=== PATIENT | male | born 1965 | race Caucasian/White ===

== ENCOUNTER 2023-01-22 15:32 | Outpatient (CLI) | payer MEDICARE, SELFPAY | END 2023-01-22 15:33 | disposition home or self-care (01) | PROVIDERS: PCP Family Medicine; Visit Provider Internal Medicine | DX: Z95.810 Presence of automatic (implantable) cardiac defibrillator (principal); I45.81 Long QT syndrome; I25.10 Atherosclerotic heart disease of native coronary artery without angina pectoris; I10 Essential (primary) hypertension; E78.5 Hyperlipidemia, unspecified; R55 Syncope and collapse; F17.210 Nicotine dependence, cigarettes, uncomplicated; E11.9 Type 2 diabetes mellitus without complications; Z79.4 Long term (current) use of insulin | CPT/HCPCS: 80048; 83735 ==

== ENCOUNTER 2024-05-23 12:54 | Outpatient (CLI) | payer MEDICARE, SELFPAY | END 2024-05-23 12:55 | disposition home or self-care (01) | LOC: INJ CL 12:55 | PROVIDERS: PCP Family Medicine; Visit Provider Family Medicine | DX: M54.16 Radiculopathy, lumbar region (principal); M51.36 Other intervertebral disc degeneration, lumbar region | CPT/HCPCS: 62323; J0702; Q9966 ==

== ENCOUNTER 2025-03-26 12:41 | Emergency (ER) | payer MEDICARE, MEDICAID, SELFPAY ==
--- OUTSIDE RECORDS SUMMARY | 2025-03-26 12:44 | XMS_ITS | Continuity of Care Document ---
Author Organization [facility] Address [address] [place] [address] Phone Care Team Providers Care Bible Worker Name Role Phone Will Gil ORTEGA Unavailable Unavailabl e Allergies, Adverse Reactions, Alerts Substance Reaction Status Criticality tamsulosin Urinary incontinence Active No Info rmation CEPHALEXIN MONOHYDRATE Constipation Active No In formation PENICILLIN Active No Information lactose Active No Information Medications Medication Instructions Dosage Effective Dates (start - stop) Status Comments magnesium 250 mg tablet Take 1 Tablet (2 50 mg) by mouth once daily. - Active nadolol 40 mg tablet Take 1 Tablet (40 mg) by mouth once daily. If after two weeks of taking Nadolol 40 mg once a day and you are tolerating it you may increase to Nadolol 80mg once a day - Active hydroxyzine HCl 25 mg tablet 25-50 mg up to twice a day as needed for anxiety - Active tramadol 50 mg tablet Take 1 Tablet (50 mg) by mouth every 6 hours if needed for Pain. - Active nitroglycerin 0.[address] 1 TABLET UNDER THE TONGUE EVERY 5 MINUTES IF NEEDED FOR CHEST PAIN. - Active betamethasone acetate and sodium phos 6 mg/mL suspension for injection - Active chlorhexidine gluconate 0.12 % mouthwash RINSE MOUTH WITH 1 CAPFUL FOR 30 SECONDS TWICE A DAY - Active oxycodone 5 mg tablet take 1 Tablet by ORAL route every 4 - 6 hours prn for post-operative pain - Active nystatin 100,000 unit/gram topical powder Apply 1 Strip topically to affected area(s) 3 times daily. - Active albuterol sulfate HFA 90 mcg/actuation aerosol inhaler inhale 2 puff by inhalation route every 4 - 6 hours as needed 180 MCG - Active Abilify 15 mg tablet take 1 tablet by oral route every day 15 MG - Active Lipitor 80 mg tablet take 1 tablet by oral route every day 80 MG - Active carvedilol 12.5 mg tablet take 1 tablet by oral route every day with food 12.5 MG - Active chlorthalidone 25 mg tablet take 1 tablet by oral route every day 25 MG - Active dicyclomine 20 mg tablet take 1 tablet by oral route 2 times every day 20 MG - Active famotidine 20 mg tablet take 1 tablet by oral route 2 times every day 20 MG - Active isosorbide mononitrate ER 30 mg tablet,extended release 24 hr take 1 tablet by oral route every day in the morning 30 MG - Active lisinopril 20 mg tablet take 1 tablet by oral route every day 20 MG - Active loperamide 2 mg tablet take 1 tablet by oral route after 1st loose stool and 1 tablet (2 mg) after each next bowel movement; do not exceed 16 mg in 24hrs 2 MG - Active Narcan 4 mg/actuation nasal spray spray 0.1 milliliter by intranasal route in 1 nostril may repeat dose every 2-3 minutes as needed alternating nostrils with each dose 4 MG - Active prazosin 5 mg capsule take 1 capsule by oral route 2 times every day 5 MG - Active prazosin 2 mg capsule take 1 capsule by oral route 2 times every day 2 MG - Active tamsulosin 0.4 mg capsule take 1 capsule by oral route every day 1/2 hour following the same meal each day 0.4 MG - Active PreserVision AREDS-2 250 mg-90 mg-40 mg-1 mg chewable tablet - Active metformin 500 mg tablet take 1 tablet by oral route every day with morning and evening meals 500 MG - Active Zoloft 100 mg tablet take 1 tablet by oral route 2 times every day 100 MG - Active lithium carbonate 150 mg capsule take 2 capsule by oral route 2 times every day 300 MG - Active Aspirin Low Dose 81 mg tablet,delayed release take 1 tablet by oral route every day 81 MG - Active clonazepam 1 mg tablet take 1 tablet by oral route every day 1 MG - Active gabapentin 300 mg capsule take 1 capsule by oral route 3 times every day 300 MG - Active hydrocodone 7.5 mg-acetaminophen 325 mg tablet take 1 tablet by oral route every 6 hours as needed for pain 1 tablet - Active Procedures Procedure Date RF Lumbar Or Sacral Single Level 2024 RF Lumbar Sacral 2nd Level RF Lumbar Sacral 2nd Level Facet Inj Lumbar Facet Inj Lumbar 2nd Lvl Facet Inj Lumbar Facet Inj Lumbar 2nd Lvl OFFICE/OUTPATIENT VISIT, EST OFFICE VISIT, EST TELEMEDICINE OFFICE/OUTPATIENT VISIT, EST Drug Urine Toxology With Chromatography Drug test def 22+ classes OFFICE VISIT, EST TELEMEDICINE OFFICE/OUTPATIENT VISIT, EST PHONE E/M PHYS/QHP 21-30 MIN OFFICE/OUTPATIENT VISIT, EST Drug Urine Toxology With Chromatography Drug test def 8-14 classes OFFICE VISIT, EST TELEMEDICINE SCS Post Op Satellite OFFICE VISIT, EST TELEMEDICINE Removal of spinal neurostimu lator electrode Percutaneous Arrays,Including Fluoro REVISE/REMOVE NEURORECEIVER OFFICE VISIT, EST TELEMEDICINE Drug Urine Toxology With Chromatography Drug test def 15-21 classes OFFICE/OUTPATIENT VISIT, EST OFFICE VISIT, EST TELEMEDICINE OFFICE VISIT, EST TELEMEDICINE Foll-up eval q3mo opiod tx OFFICE/OUTPATIENT VISIT, EST Drug Urine Toxology With Chromatography Drug test def 8-14 classes Foll-up eval q3mo opiod tx OFFICE VISIT, EST TELEMEDICINE Foll-up eval q3mo opiod tx OFFICE VISIT, EST TELEMEDICINE Foll-up eval q3mo opiod tx OFFICE/OUTPATIENT VISIT, EST Drug Urine Toxology With Chromatography Drug test def 8-14 classes Foll-up eval q3mo opiod tx OFFICE VISIT, EST TELEMEDICINE Foll-up eval q3mo opiod tx OFFICE VISIT, EST TELEMEDICINE ANALYZE NEUROSTIM, COMPLEX Foll-up eval q3mo opiod tx OFFICE/OUTPATIENT VISIT, EST OFFICE/OUTPATIENT VISIT, EST Telehealth Drug Urine Toxology With Chromatography Drug test def 8-14 classes Foll-up eval q3mo opiod tx OFFICE/OUTPATIENT VISIT, EST Foll-up eval q3mo opiod tx OFFICE/OUTPATIENT VISIT, EST Foll-up eval q3mo opiod tx OFFICE/OUTPATIENT VISIT, EST Foll-up eval q3mo opiod tx OFFICE/OUTPATIENT VISIT, EST ANALYZE NEUROSTIM, COMPLEX Foll-up eval q3mo opiod tx OFFICE/OUTPATIENT VISIT, EST Drug Urine Toxology With Chromatography Drug test def 15-21 classes SCS Post Op Satellite No Charge For Visit Per Prov Foll-up eval q3mo opiod tx IMPLANT NEUROELECTRODES ASC IMPLANT NEUROELECTRODES ASC INSRT/REDO SPINE N GENERATOR No Charge For Visit Per Prov No Charge For Visit Per Prov OFFICE VISIT, EST TELEMEDICINE OFFICE VISIT, EST TELEMEDICINE SCS Lead Pull Satellite No Charge For Visit Per Prov IMPLANT NEUROELECTRODES ASC IMPLANT NEUROELECTRODES ASC ANALYZE NEUROSTIM, COMPLEX PT EVAL MOD COMPLEX 30 MIN Psych Dx Eval ROUTINE BLOOD DRAW INJ TRIGGER POINT, 1/2 MUSCL Substance Interv 15-30mn OFFICE/OUTPATIENT VISIT, [facility] Advance Directives Directive Yes / No Effective Date File Name No Information Encounters Encounter Description Practice Location Reason(s) For Visit Diagnoses Date Provider Providers Copied on Encounter [facility], [address] [place] [address], [id number] , [place] tel:[phone] [facility] Spondylosis without myelopathy or radiculopathy, lumbar region 5 Bruce Cordero. [address] [place] [address], [id number], [place]. tel:[phone] Referring Provider: Gil Rinaldi, [address] [place] [address], [id number]. [phone] [facility], [address] [place] [address], [id number] , [place] tel:[phone] [facility] Spondylosis without myelopathy or radiculopathy, lumbar region 5 Arnulfo Sosa. [address], [address], [employer], [place], [id number], [place]. tel:[phone] Referring Provider: Gil Rinaldi, [address] [place] [address], [id number]. [phone] [facility], [address] [place] [address], [id number] , [place] tel:[phone] [facility] Spondylosis without myelopathy or radiculopathy, lumbar region 5 Arnulfo Sosa. [address], [address], [employer], [place], [id number], [place]. tel:[phone] [facility], [address] [place], [place], [id number] , [place] [phone] [facility] Spondylosis without myelopathy or radiculopathy, lumbar region Feb-0 5 Bruce Cordero. [address] [place], [place], [id number], [place]. tel:[phone] Referring Provider: Ian Arredondo, [address], [place], [address]. tel:[phone] OFFICE/OUTPAT IENT VISIT, [facility], [address] [place] [address], [id number] , [place] [phone] [facility] low back pain (chief complaint) Body mass index [BMI] 33.0-33.9, adultChronic pain syndromeBilatera l primary osteoarthritis of hipRadiculopathy , lumbar regionSpondylosi s without myelopathy or radiculopathy, lumbar regionMyalgia, other site 4 Arnulfo Sosa. [address], [address], [employer], [place], [id number], [place]. tel:[phone] Referring Provider: Gil Rinaldi, [address] [place], [address]. tel:[phone] OFFICE VISIT, [facility], [address] [place] [address], [id number] , [place] [phone] [facility] low back pain (chief complaint) Chronic pain syndromeBilatera l primary osteoarthritis of hipSpondylosis without myelopathy or radiculopathy, lumbar regionSpinal stenosis, lumbar region with neurogenic claudicationRadi culopathy, lumbar regionMyalgia, other siteLong term (current) use of opiate analgesicOther fci (current) drug therapy Feb- 4 Summer Galicia [place], [address] [place] [address], [id number], [place]. tel:[phone] Referring Provider: Gil Rinaldi, [address] [place] [address], [id number]. tel:[phone] OFFICE/OUTPAT IENT VISIT, [facility], [address] [place] [address], [id number] , tel:[phone] [facility] low back pain (chief complaint) Chronic pain syndromeBilatera l primary osteoarthritis of hipSpondylosis without myelopathy or radiculopathy, lumbar regionSpinal stenosis, lumbar region with neurogenic claudicationRadi culopathy, lumbar regionMyalgia, other siteLong term (current) use of opiate analgesicOther fci (current) drug therapyEncounter for therapeutic drug level monitoring 4 Summer [place], [address] [place], [place], [facility], . tel:[phone] Referring Provider: Gil Rinaldi, [address] [place] [address], [id number]. tel:[phone] OFFICE VISIT, [facility], [address] [place] [address], [id number] , [place] tel:[phone] [facility] low back pain (chief complaint) Chronic pain syndromeBilatera l primary osteoarthritis of hipSpondylosis without myelopathy or radiculopathy, lumbar regionSpinal stenosis, lumbar region with neurogenic claudicationRadi culopathy, lumbar regionMyalgia, other siteLong term (current) use of opiate analgesicOther parts counterman (current) drug therapy 4 Summer [place], [address] [place], [place], [facility], [place]. tel:[phone] OFFICE/OUTPAT IENT VISIT, [facility], [address] [place] [address], [id number] , [place] tel:[phone] [facility] low back pain (chief complaint) Chronic pain syndromeBilatera l primary osteoarthritis of hipSpondylosis without myelopathy or radiculopathy, lumbar regionSpinal stenosis, lumbar region with neurogenic claudicationRadi culopathy, lumbar regionMyalgia, other siteLong term (current) use of opiate analgesicOther parts counterman (current) drug therapy 4 Summer [place], [address] [place], [address], [place]. tel:[phone] PHONE E/M PHYS/QHP 21-30 MIN [facility], [address] [place] [address], [id number] , [place] [phone] [facility] low back pain (chief complaint) Chronic pain syndromeBilatera l primary osteoarthritis of hipSpondylosis without myelopathy or radiculopathy, lumbar regionSpinal stenosis, lumbar region with neurogenic claudicationRadi culopathy, lumbar regionMyalgia, other siteLong term (current) use of opiate analgesicOther parts counterman (current) drug therapy 4 Summer [place], [address] [place], [address], [place]. tel:[phone] Referring Provider: Gil Rinaldi, [address] [place] [address], [id number]. tel:[phone] OFFICE/OUTPAT IENT VISIT, EST [facility], [address] [place] [address], [id number] , [place] tel:[phone] [facility] low back pain (chief complaint) Chronic pain syndromeBilatera l primary osteoarthritis of hipSpondylosis without myelopathy or radiculopathy, lumbar regionSpinal stenosis, lumbar region with neurogenic claudicationRadi culopathy, lumbar regionMyalgia, other siteLong term (current) use of opiate analgesicEncount er for therapeutic drug level monitoringOther fci (current) drug therapy 3 Summer [place], [address] [place], [address], [place]. tel:[phone] Referring Provider: Gil Rinaldi, [address] [place] [address], [id number]. tel:[phone] [facility], [address] [place] [address], [id number] , [place] tel:[phone] [facility] [place] No Information 0 3 Wheeler Gael. [place], [address] [place], [address], [place]. tel:[phone] OFFICE VISIT, EST TELEMEDICINE [facility], [address] [place] [address], [id number] , [place] tel:[phone] [facility] low back pain (chief complaint) Chronic pain syndromeBilatera l primary osteoarthritis of hipSpondylosis without myelopathy or radiculopathy, lumbar regionSpinal stenosis, lumbar region with neurogenic claudicationRadi culopathy, lumbar regionMyalgia, other siteLong term (current) use of opiate analgesic 3 Wheeler Gael. [place], [address] [place], [address], [place]. tel:[phone] OFFICE VISIT, EST TELEMEDICINE [facility], [address] [place] [address], [id number] , [place] tel:[phone] [facility] low back pain (chief complaint) Chronic pain syndromeBilatera l primary osteoarthritis of hipSpondylosis without myelopathy or radiculopathy, lumbar regionSpinal stenosis, lumbar region with neurogenic claudicationRadi culopathy, lumbar regionMyalgia, other siteLong term (current) use of opiate analgesic Aug-0 3 Wheeler Gael. [place], [address] [place], [address], [place]. tel:[phone] [facility], [address] [place] [address], [id number] , [place] tel:[phone] [facility] Radiculopathy, lumbar region Sep-2 3 Adebayo Cancino. [address] [place] [address], [id number], [place]. tel:[phone] Referring Provider: Julita Fiore, [address] [place] [address], [id number]. tel:[phone] OFFICE VISIT, EST TELEMEDICINE [facility], [address] [place] [address], [id number] , [place] [phone] [facility] low back pain (chief complaint) Chronic pain syndromeBilatera l primary osteoarthritis of hipSpondylosis without myelopathy or radiculopathy, lumbar regionSpinal stenosis, lumbar region with neurogenic claudicationRadi culopathy, lumbar regionMyalgia, other siteLong term (current) use of opiate analgesic Sep-0 3 Summer [place]ela, [address] [place], [address], [place]. tel:[phone] Referring Provider: Gil Rinaldi, [address] [place], [address]. tel:[phone] [facility], [address] [place] [address], [id number] , [place] [phone] [facility] No Information 3 Summer Vela, [address] [place], [address], [place]. tel:[phone] Referring [facility]: [facility] [address] [place], [address]. tel:[phone] OFFICE/OUTPAT IENT VISIT, EST [facility], [address] [place] [address], [id number] , [place] [phone] [facility] low back pain (chief complaint) Chronic pain syndromeBilatera l primary osteoarthritis of hipSpondylosis without myelopathy or radiculopathy, lumbar regionSpinal stenosis, lumbar region with neurogenic claudicationRadi culopathy, lumbar regionMyalgia, other siteLong term (current) use of opiate analgesicEncount er for therapeutic drug level monitoring 3 Summer Vela, [address] [place], [address], [place]. tel:[phone] Referring Provider: Manjinder Rodas [facility] [address] [place], [address]. tel:[phone] OFFICE VISIT, EST TELEMEDICINE [facility], [address] [place] [address], [id number] , [place] [phone] [facility] low back pain (chief complaint) Chronic pain syndromeBilatera l primary osteoarthritis of hipSpondylosis without myelopathy or radiculopathy, lumbar regionSpinal stenosis, lumbar region with neurogenic claudicationRadi culopathy, lumbar regionMyalgia, other siteLong term (current) use of opiate analgesic May- 3 Summer Vela, [address] [place], [address], [place]. tel:[phone] Referring Provider: iGl Rinaldi, [address] [place] [address], [id number]. tel:[phone] OFFICE VISIT, [facility], [address] [place] [address], [id number] , [place] [phone] [facility] low back pain (chief complaint) Chronic pain syndromeBilatera l primary osteoarthritis of hipSpondylosis without myelopathy or radiculopathy, lumbar regionSpinal stenosis, lumbar region with neurogenic claudicationRadi culopathy, lumbar regionMyalgia, other siteLong term (current) use of opiate analgesic 3 Summer Vela, [address] [place], [address], [place]. [phone] OFFICE/OUTPAT IENT VISIT, [facility], [address] [place] [address], [id number] , [place] tel:[phone] [facility] low back pain (chief complaint) Chronic pain syndromeBilatera l primary osteoarthritis of hipSpondylosis without myelopathy or radiculopathy, lumbar regionSpinal stenosis, lumbar region with neurogenic claudicationRadi culopathy, lumbar regionMyalgia, other siteLong term (current) use of opiate analgesicOther parts counterman (current) drug therapy 0 3 Summer Vela, [address] [place], [address], [place]. tel:[phone] Referring Provider: Manjinder Rodas, [facility] [address], [place], [address]. tel:[phone] [facility], [address] [place] [address], [id number] , [place] [phone] [facility] No Information May-0 - 3 Wheeler Gael. [place], [address] [place], [address], [place]. tel:[phone] OFFICE VISIT, EST TELEMEDICINE [facility], [address] [place] [address], [id number] , [place] tel:[phone] [facility] low back pain (chief complaint) Chronic pain syndromeSpondylo sis without myelopathy or radiculopathy, lumbar regionSpinal stenosis, lumbar region with neurogenic claudicationRadi culopathy, lumbar regionMyalgia, other siteLong term (current) use of opiate analgesicOther fci (current) drug therapyBilateral primary osteoarthritis of hip Apr-0 - 3 Wheeler Gael. [place], [address] [place], [address], [place]. tel:[phone] Referring Provider: Gil Rinaldi, [address] [place] [address], [id number]. tel:[phone] OFFICE VISIT, EST TELEMEDICINE [facility], [address] [place] [address], [id number] , [place] tel:[phone] [facility] low back pain (chief complaint) Chronic pain syndromeUnilater al primary osteoarthritis, right hipSpondylosis without myelopathy or radiculopathy, lumbar regionSpinal stenosis, lumbar region with neurogenic claudicationRadi culopathy, lumbar regionMyalgia, other siteLong term (current) use of opiate analgesicOther fci (current) drug therapy Mar-0 - 3 Wheeler Gael. [place], [address] [place], [address], [place]. tel:[phone] Referring Provider: Gil Rinaldi, [address] [place] [address], [id number]. tel:[phone] [facility], [address] [place] [address], [id number] , [place] tel: [phone] [facility] Radiculopathy, lumbar region Jan- 3 Summer Galicia [place], [address] [place], [address], [place]. tel:[phone] OFFICE/OUTPAT IENT VISIT, EST [facility], [address] [place] [address], [id number] , [place] tel: [phone] [facility] low back pain (chief complaint) Chronic pain syndromeUnilater al primary osteoarthritis, right hipSpondylosis without myelopathy or radiculopathy, lumbar regionSpinal stenosis, lumbar region with neurogenic claudicationRadi culopathy, lumbar regionMyalgia, other siteLong term (current) use of opiate analgesicOther parts counterman (current) drug therapyEncounter for therapeutic drug level monitoring 3 Bryn Jasmine. [address], [id number], [place]. tel:[phone] Referring Provider: Manjinder Rodas [facility] [address] [place], [address]. tel:[phone] [facility], [address] [place] [address], [id number] , [place] tel: [phone] [facility] No Information 3 Bryn Jasmine. [address], [id number], [place]. tel:[phone] Referring Provider: [facility]inder [facility] [address] [place], [address]. tel:[phone] [facility], [address] [place] [address], [id number] , [place] tel:[phone] [facility] No Information 3 Summer [place], [address] [place], [address], [place]. tel:[phone] OFFICE VISIT, EST TELEMEDICINE [facility], [address] [place] [address], [id number] , [place] tel:[phone] [facility] Back Pain (chief complaint) Chronic pain syndromeUnilater al primary osteoarthritis, right hipSpondylosis without myelopathy or radiculopathy, lumbar regionSpinal stenosis, lumbar region with neurogenic claudicationRadi culopathy, lumbar regionMyalgia, other siteLong term (current) use of opiate analgesicOther fci (current) drug therapy 0- 3 Wheeler Gael. [place], [address] [place], [address], [place]. tel:[phone] Referring Provider: Gil Rinaldi, [address] [place] [address], [id number]. [phone] OFFICE VISIT, EST TELEMEDICINE [facility], [address] [place] [address], [id number] , [place] tel:[phone] [facility] Back pain (chief complaint) Chronic pain syndromeSpondylo sis without myelopathy or radiculopathy, lumbar regionSpinal stenosis, lumbar region with neurogenic claudicationRadi culopathy, lumbar regionMyalgia, other siteLong term (current) use of opiate analgesicOther parts counterman (current) drug therapyUnilatera l primary osteoarthritis, right hip Oct-2 2- 2 Wheeler Gael. [place], [address] [place], [address], [place]. tel:[phone] [facility], [address] [place] [address], [id number] , [place] tel:[phone] [facility] Unilateral primary osteoarthritis, right hip Oct-0 7- 2 Wheeler Gael. [place], [address] [place], [address], [place]. tel:[phone] OFFICE/OUTPAT IENT VISIT, EST [facility], [address] [place] [address], [id number] , [place] tel:[phone] [facility] Back Pain (chief complaint) Chronic pain syndromeUnilater al primary osteoarthritis, right hipSpondylosis without myelopathy or radiculopathy, lumbar regionSpinal stenosis, lumbar region with neurogenic claudicationRadi culopathy, lumbar regionMyalgia, other siteLong term (current) use of opiate analgesicOther fci (current) drug therapy 2 Summer Galicia [place], [address] [place], [address], [place]. tel:[phone] Referring Provider: Manjinder Rodas, [facility] [address] [place], [address]. tel:[phone] OFFICE/OUTPAT IENT VISIT, [facility], [address] [place] [address], [id number] , [place] [phone] [facility] Radiculopathy, lumbar region 2 Bruce Cordero. [address] [place] [address], [id number], [place]. tel:[phone] Referring Provider: Gil Rinaldi, [address] [place] [address], [address]. tel:[phone] [facility], [address] [place] [address], [id number] , [place] [phone] [facility] No Information 2 Summer Galicia [place], [address] [place], [address], [place]. tel:[phone] OFFICE/OUTPAT IENT VISIT, [facility], [address] [place] [address], [id number] , [place] [phone] [facility] Back Pain (chief complaint) Chronic pain syndromeUnilater al primary osteoarthritis, right hipSpondylosis without myelopathy or radiculopathy, lumbar regionSpinal stenosis, lumbar region with neurogenic claudicationRadi culopathy, lumbar regionMyalgia, other siteLong term (current) use of opiate analgesicOther fci (current) drug therapyEncounter for therapeutic drug level monitoring 2 Summer [place], [address] [place], [address], [place]. tel:[phone] Referring Provider: Manjinder Rodas [facility] [address] [place], [address]. tel:[phone] OFFICE/OUTPAT IENT VISIT, [facility], [address] [place] [address], [id number] , [place] [phone] [facility] Back pain (chief complaint) Unilateral primary osteoarthritis, right hipChronic pain syndromeSpondylo sis without myelopathy or radiculopathy, lumbar regionSpinal stenosis, lumbar region with neurogenic claudicationRadi culopathy, lumbar regionMyalgia, other siteLong term (current) use of opiate analgesicOther fci (current) drug therapy Oct 2 Summer [place], [address] [place], [address], [place]. tel:[phone] Referring Provider: Manjinder Rodas [facility] [address] [place], [address]. tel:[phone] OFFICE/OUTPAT IENT VISIT, [facility], [address] [place] [address], [id number] , [place] tel:[phone] [facility] Back Pain (chief complaint) Chronic pain syndromeUnilater al primary osteoarthritis, right hipSpondylosis without myelopathy or radiculopathy, lumbar regionSpinal stenosis, lumbar region with neurogenic claudicationRadi culopathy, lumbar regionMyalgia, other siteLong term (current) use of opiate analgesicOther fci (current) drug therapy Sep-0 2 Summer [place], [address] [place], [address], [place]. tel:[phone] Referring Provider: Manjinder Rodas [facility] [address] [place], [address]. tel:[phone] OFFICE/OUTPAT IENT VISIT, EST [facility], [address] [place], [place], [id number] , [place] tel:[phone] [facility] Back Pain (chief complaint) Radiculopathy, lumbar regionChronic pain syndromeUnilater al primary osteoarthritis, right hipSpondylosis without myelopathy or radiculopathy, lumbar regionSpinal stenosis, lumbar region with neurogenic claudicationMyal fryea, other siteLong term (current) use of opiate analgesicOther fci (current) drug therapy 2 Wheeler Gael. [place], [address] [place], [address], [place]. tel:[phone] Referring Provider: Manjinder Rodas [facility] [address] [place], [address]. tel:[phone] [facility], [address], [place], [id number] , [place] tel:[phone] [facility] Radiculopathy, lumbar region 2 Wheeler Gael. [place], [address] [place], [address], [place]. tel:[phone] Referring Provider: Manjinder Rodas [facility] [address] [place], [address]. tel:[phone] OFFICE/OUTPAT IENT VISIT, [facility], [address], [place], [id number] , [place] [phone] [facility] Back Pain (chief complaint) Chronic pain syndromeUnilater al primary osteoarthritis, right hipSpondylosis without myelopathy or radiculopathy, lumbar regionSpinal stenosis, lumbar region with neurogenic claudicationRadi culopathy, lumbar regionMyalgia, other siteOther fci (current) drug therapyLong term (current) use of opiate analgesic 2 Wheeler Gael. [place], [address] [place], [address], [place]. tel:[phone] Referring Provider: Manjinder Rodas [facility] [address] [place], [address]. tel:[phone] [facility], [address] [place] [address], [id number] , [place] tel:[phone] [facility] No Information 2 Wheeler Gael. [place], [address] [place], [address], [place]. tel:[phone] Referring Provider: Manjinder Rodas [facility] [address] [place], [address]. tel:[phone] [facility], [address] [place] [address], [id number] , [place] tel:[phone] [facility] Back Pain (chief complaint) Radiculopathy, lumbar region 2 Wheeler Gael. [place], [address] [place], [address], [place]. tel:[phone] Referring Provider: Manjinder Rodas [facility] [address] [place], [address]. tel:[phone] [facility], [address] [place] [address], [id number] , [place] tel:[phone] [facility] Radiculopathy, lumbar region 2 Varela Nicholas. [employer], [address], [place], [address], [place]. tel:[phone] Referring Provider: Manjinder Rodas [facility] [address] [place], [address]. tel:[phone] [facility], [address] [place] [address], [id number] , [place] tel:[phone] [facility] No Information 2 Varela Nicholas. [employer], [address], [place], [address], [place]. tel:[phone] Referring Provider: Manjinder Rodas [facility] [address] [facility], [place], [address]. tel:[phone] [facility], [address] [place] [address], [id number] , [place] [phone] [facility] No Information 2 Avery Peterson. [facility], [address], [place], [address], [place]. tel:[phone] Referring Provider: Manjinder Rodas, [facility] [address] [facility], [place], [address]. tel:[phone] OFFICE VISIT, EST TELEMEDICINE [facility], [address] [place] [address], [id number] , [place] [phone] [facility] Spinal stenosis, lumbar region with neurogenic claudication 2 Summer [place], [address] [place], [address], [place]. tel:[phone] OFFICE VISIT, EST TELEMEDICINE [facility], [address] [place] [address], [id number] , [place] tel:[phone] [facility] low back pain (chief complaint) Chronic pain syndromeUnilater al primary osteoarthritis, right hipSpondylosis without myelopathy or radiculopathy, lumbar regionSpinal stenosis, lumbar region with neurogenic claudicationRadi culopathy, lumbar regionMyalgia, other siteOther parts counterman (current) drug therapy Feb-0 2 Wheeler [place], [address], [place], [address], [place]. tel:[phone] [facility], [address] [place] [address], [id number] , [place] [phone] [facility] Radiculopathy, lumbar region Feb-2 2 Wheeler [place], [address] [place], [address], [place]. tel:[phone] Referring Provider: Majninder Rodas, [facility] [address], [place], [address]. tel:[phone] [facility], [address] [place] [address], [id number] , [place] [phone] [facility] Radiculopathy, lumbar region 2 Avery Peterson. [facility], [address], [place], [address], [place]. tel:[phone] Referring Provider: Manjinder Rodas, [facility] [address], [place], [address]. tel:[phone] [facility], [address] [place] [address], [id number] , [place] tel:[phone] [facility] lumbago (chief complaint) Spinal stenosis, lumbar region with neurogenic claudicationSpon dylosis without myelopathy or radiculopathy, lumbar regionRadiculopa thy, lumbar region 2 Darya Chapman. [address], [place], [id number], [place]. tel:[phone] [facility], [address] [place] [address], [id number] , [place] tel:[phone] [facility] No Information 2 Arely Alaniz. [address], [employer], [place], [id number], [place]. tel:[phone] Psych Dx Eval [facility], [address] [place] [address], [id number] , [place] tel:[phone] [facility] Stormy Pain disorder with related psychological factorsBipolar disorderPost-tra umatic stress disorder 2 Cata Darling. [address], [place], [id number], [place]. tel:[phone] [facility], [address] [place] [address], [id number] , [place] tel: [phone] [facility] Chronic pain syndromeRadiculo carl, lumbar regionSpinal stenosis, lumbar region with neurogenic claudication 1 Arely Alaniz. [address] [facility] [address], [id number], [place]. tel:[phone] [facility], [address] [place], [place], [id number] , [place] tel: [phone] [facility] No Information 1 Arely Alaniz. [address] [facility] [address], [id number], [place]. tel:[phone] OFFICE/OUTPAT IENT VISIT, [facility], [address] [place], [place], [id number] , [place] tel: [phone] [facility] low back pain (chief complaint) Spondylosis without myelopathy or radiculopathy, lumbar regionOther parts counterman (current) drug therapyEncounter for therapeutic drug level monitoringChroni c pain syndromeUnilater al primary osteoarthritis, right hipEncounter for screening for other disorderMyalgia, other siteRadiculopath y, lumbar regionSpinal stenosis, lumbar region with neurogenic claudication 1 Arely Alaniz. [address] [facility] 11 [facility] [address], [place], [id number], [place]. [phone] Referring Provider: Manjinder Rodas, [facility] [address] [facility], [place], [address]. tel:[phone] Family History Family Member Type Diagnosis Age At Onset No Information Payers Payer name Insurance type Covered republican ID Authoriza ticorina(s) [facility] MedicareComplete Replacement 16 [id number] [facility] [id number] Social History Type Description Quantity Date Captured Comments Sex Male Smoking Status No Information Chief Complaint And Reason For Visit No Information Reason For Referral Reason For Referral No Information Plan Of Treatment Date Type Action Status Goal Creatinine. Due on due Goal ALT (SGPT). Due on due Goal FIT. Due on due Goal Order Annual PT. Due on due Goal Weight. Due on d ue Goal Hepatitis C scre ening. Due on due Goal CALENDER RUNNER Paperwork. Due on due Goal Height. Due on d ue Goal PHQ-9. Due on du e Goal Lipid panel. Due on due Goal Update Social Hi story. Due on due Goal Tobacco Use. Due on due Goal FIT-DNA. Due on due Goal CT-Colonography. Due on due Goal Zoster vaccine ( 1st). Due on due Goal Review Allergy L ist. Due on due Goal MASTER TECHNICIAN Scanned. Due on due Goal Medication Recon ciliation. Due on due Goal UDT. Due on due Goal Unhealthy drug u se screening. Due on due Goal AST (SGOT). Due on due Goal OARS. Due on due Goal Medication Recon ciliation. Due on due Goal Hepatitis C scre ening. Due on due Goal CT-Colonography. Due on due Goal FIT. Due on due Goal Weight. Due on d ue Goal Zoster vaccine ( 1st). Due on due Goal Unhealthy drug u se screening. Due on due Goal FIT-DNA. Due on due Goal Height. Due on d ue Goal Review Allergy L ist. Due on due Goal Update Social Hi story. Due on due Goal AST (SGOT). Due on due Goal CALENDER RUNNER Paperwork. Due on due Goal PHQ-9. Due on du e Goal Tobacco Use. Due on due Goal Lipid panel. Due on due Goal MASTER TECHNICIAN Scanned. Due on due Goal Order Annual PT. Due on due Goal Creatinine. Due on due Goal UDT. Due on due Goal ALT (SGPT). Due on due Goal OARS. Due on due Goal Order Annual PT. Due on due Goal CT-Colonography. Due on due Goal CALENDER RUNNER Paperwork. Due on due Goal Tobacco Use. Due on due Goal AST (SGOT). Due on due Goal Lipid panel. Due on due Goal Hepatitis C scre ening. Due on due Goal FIT. Due on due Goal MASTER TECHNICIAN Scanned. Due on due Goal ALT (SGPT). Due on due Goal FIT-DNA. Due on due Goal Medication Recon ciliation. Due on due Goal Creatinine. Due on due Goal Unhealthy drug u se screening. Due on due Goal OARS. Due on due Goal Review Allergy L ist. Due on due Goal Zoster vaccine ( ). Due on due Goal PHQ-9. Due on du e Goal UDT. Due on due Goal Weight. Due on d ue Goal Height. Due on d ue Goal Update Social Hi story. Due on due Goal Lifestyle educat ion regarding diet completed Goal Weight. Due on d ue Goal Hepatitis C scre ening. Due on due Goal Tobacco Use. Due on due Goal Zoster vaccine ( ). Due on due Goal Unhealthy drug u se screening. Due on due Goal FIT-DNA. Due on due Goal Medication Recon ciliation. Due on due Goal Review Allergy L ist. Due on due Goal Creatinine. Due on due Goal FIT. Due on due Goal Update Social Hi story. Due on due Goal CALENDER RUNNER Paperwork. Due on due Goal OARS. Due on due Goal Lipid panel. Due on due Goal Order Annual PT. Due on due Goal ALT (SGPT). Due on due Goal UDT. Due on due Goal AST (SGOT). Due on due Goal MASTER TECHNICIAN Scanned. Due on due Goal Height. Due on d ue Goal CT-Colonography. Due on due Goal PHQ-9. Due on du e Goal Unhealthy drug u se screening. Due on due Goal ALT (SGPT). Due on due Goal AST (SGOT). Due on due Goal Zoster vaccine ( 1st). Due on due Goal OARS. Due on due Goal PHQ-9. Due on du e Goal Tobacco Use. Due on due Goal Lipid panel. Due on due Goal Hepatitis C scre ening. Due on due Goal UDT. Due on due Goal Order Annual PT. Due on due Goal Height. Due on d ue Goal CT-Colonography. Due on due Goal Creatinine. Due on due Goal MASTER TECHNICIAN Scanned. Due on due Goal Update Social Hi story. Due on due Goal Medication Recon ciliation. Due on due Goal Review Allergy L ist. Due on due Goal FIT. Due on due Goal Weight. Due on d ue Goal FIT-DNA. Due on due Goal CALENDER RUNNER Paperwork. Due on due Goal Lifestyle educat ion regarding diet completed Goal Zoster vaccine ( ). Due on due Goal Update Social Hi story. Due on due Goal Unhealthy drug u se screening. Due on due Goal UDT. Due on due Goal Weight. Due on d ue Goal OARS. Due on due Goal PHQ-9. Due on du e Goal MASTER TECHNICIAN Scanned. Due on due Goal AST (SGOT). Due on due Goal Height. Due on d ue Goal Hepatitis C scre ening. Due on due Goal Review Allergy L ist. Due on due Goal Tobacco Use. Due on due Goal FIT. Due on due Goal Lipid panel. Due on due Goal ALT (SGPT). Due on due Goal CT-Colonography. Due on due Goal CALENDER RUNNER Paperwork. Due on due Goal Order Annual PT. Due on due Goal FIT-DNA. Due on due Goal Creatinine. Due on due Goal Medication Recon ciliation. Due on due Goal Review Allergy L ist. Due on due Goal FIT. Due on due Goal AST (SGOT). Due on due Goal Height. Due on d ue Goal Medication Recon ciliation. Due on due Goal CT-Colonography. Due on due Goal Update Social Hi story. Due on due Goal Zoster vaccine ( 1st). Due on due Goal Creatinine. Due on due Goal Weight. Due on d ue Goal Order Annual PT. Due on due Goal MASTER TECHNICIAN Scanned. Due on due Goal Hepatitis C scre ening. Due on due Goal UDT. Due on due Goal PHQ-9. Due on du e Goal FIT-DNA. Due on due Goal Lipid panel. Due on due Goal CALENDER RUNNER Paperwork. Due on due Goal OARS. Due on due Goal Unhealthy drug u se screening. Due on due Goal Tobacco Use. Due on due Goal ALT (SGPT). Due on due Goal PHQ-9. Due on du e Goal Zoster vaccine ( 1st). Due on due Goal Tobacco Use. Due on due Goal Update Social Hi story. Due on due Goal Height. Due on d ue Goal Hepatitis C scre ening. Due on due Goal CT-Colonography. Due on due Goal Weight. Due on d ue Goal FIT-DNA. Due on due Goal Review Allergy L ist. Due on due Goal Creatinine. Due on due Goal Unhealthy drug u se screening. Due on due Goal OARS. Due on due Goal Medication Recon ciliation. Due on due Goal Lipid panel. Due on due Goal ALT (SGPT). Due on due Goal UDT. Due on due Goal FIT. Due on due Goal Order Annual PT. Due on due Goal AST (SGOT). Due on due Goal CALENDER RUNNER Paperwork. Due on due Goal MASTER TECHNICIAN Scanned. Due on due Goal Order Annual PT. Due on due Goal MASTER TECHNICIAN Scanned. Due on due Goal AST (SGOT). Due on due Goal ALT (SGPT). Due on due Goal Tobacco Use. Due on due Goal Height. Due on d ue Goal Update Social Hi story. Due on due Goal PHQ-9. Due on du e Goal Creatinine. Due on due Goal OARS. Due on due Goal Weight. Due on d ue Goal CALENDER RUNNER Paperwork. Due on due Goal Lipid panel. Due on due Goal Medication Recon ciliation. Due on due Goal UDT. Due on due Goal Review Allergy L ist. Due on due Goal FIT-DNA. Due on due Goal Unhealthy drug u se screening. Due on due Goal FIT. Due on due Goal CT-Colonography. Due on due Goal Zoster vaccine ( ). Due on due Goal Hepatitis C scre ening. Due on due Goal FIT-DNA. Due on due Goal ALT (SGPT). Due on due Goal Height. Due on d ue Goal Tobacco Use. Due on due Goal Zoster vaccine ( ). Due on due Goal PHQ-9. Due on du e Goal Order Annual PT. Due on due Goal UDT. Due on due Goal Creatinine. Due on due Goal Review Allergy L ist. Due on due Goal Lipid panel. Due on due Goal MASTER TECHNICIAN Scanned. Due on due Goal OARS. Due on due Goal Hepatitis C scre ening. Due on due Goal FIT. Due on due Goal Medication Recon ciliation. Due on due Goal Unhealthy drug u se screening. Due on due Goal CALENDER RUNNER Paperwork. Due on due Goal AST (SGOT). Due on due Goal Weight. Due on d ue Goal CT-Colonography. Due on due Goal Update Social Hi story. Due on due Goal Lifestyle educat ion regarding diet completed Goal FIT-DNA. Due on due Goal Review Allergy L ist. Due on due Goal Weight. Due on d ue Goal Height. Due on d ue Goal Order Annual PT. Due on due Goal CT-Colonography. Due on due Goal Update Social Hi story. Due on due Goal MASTER TECHNICIAN Scanned. Due on due Goal Medication Recon ciliation. Due on due Goal Lipid panel. Due on 023 due Goal OARS. Due on due Goal PHQ-9. Due on du e Goal Zoster vaccine ( 1st). Due on due Goal Hepatitis C scre ening. Due on due Goal Unhealthy drug u se screening. Due on due Goal UDT. Due on due Goal AST (SGOT). Due on due Goal Tobacco Use. Due on due Goal CALENDER RUNNER Paperwork. Due on due Goal FIT. Due on due Goal ALT (SGPT). Due on due Goal Creatinine. Due on due Goal Review Allergy L ist. Due on due Goal Order Annual PT. Due on due Goal FIT. Due on due Goal Unhealthy drug u se screening. Due on due Goal CT-Colonography. Due on due Goal Height. Due on d ue Goal Medication Recon ciliation. Due on due Goal Tobacco Use. Due on due Goal FIT-DNA. Due on due Goal OARS. Due on due Goal AST (SGOT). Due on due Goal ALT (SGPT). Due on due Goal MASTER TECHNICIAN Scanned. Due on due Goal Creatinine. Due on due Goal Lipid panel. Due on due Goal Zoster vaccine ( 1st). Due on due Goal PHQ-9. Due on du e Goal Update Social Hi story. Due on due Goal Weight. Due on d ue Goal Hepatitis C scre ening. Due on due Goal UDT. Due on due Goal CALENDER RUNNER Paperwork. Due on due Goal Medication Recon ciliation. Due on due Goal Creatinine. Due on due Goal Unhealthy drug u se screening. Due on due Goal PHQ-9. Due on du e Goal FIT-DNA. Due on due Goal FIT. Due on due Goal CT-Colonography. Due on due Goal OARS. Due on due Goal MASTER TECHNICIAN Scanned. Due on due Goal CALENDER RUNNER Paperwork. Due on due Goal AST (SGOT). Due on due Goal Order Annual PT. Due on due Goal Review Allergy L ist. Due on due Goal Lipid panel. Due on due Goal Update Social Hi story. Due on due Goal ALT (SGPT). Due on due Goal Tobacco Use. Due on due Goal Hepatitis C scre ening. Due on due Goal Zoster vaccine ( 1st). Due on due Goal Weight. Due on d ue Goal Height. Due on d ue Goal UDT. Due on due Goal CT-Colonography. Due on due Goal ALT (SGPT). Due on due Goal UDT. Due on due Goal Order Annual PT. Due on due Goal Creatinine. Due on due Goal OARS. Due on due Goal Review Allergy L ist. Due on due Goal MASTER TECHNICIAN Scanned. Due on due Goal Tobacco Use. Due on due Goal Lipid panel. Due on due Goal AST (SGOT). Due on due Goal FIT-DNA. Due on due Goal CALENDER RUNNER Paperwork. Due on due Goal Unhealthy drug u se screening. Due on due Goal FIT. Due on due Goal Hepatitis C scre ening. Due on due Goal Height. Due on d ue Goal Zoster vaccine ( 1st). Due on due Goal Medication Recon ciliation. Due on due Goal PHQ-9. Due on du e Goal Weight. Due on d ue Goal Update Social Hi story. Due on due Goal OARS. Due on due Goal ALT (SGPT). Due on due Goal Creatinine. Due on due Goal Order Annual PT. Due on due Goal MASTER TECHNICIAN Scanned. Due on due Goal CALENDER RUNNER Paperwork. Due on due Goal UDT. Due on due Goal AST (SGOT). Due on due Goal FIT-DNA. Due on due Goal Weight. Due on d ue Goal Medication Recon ciliation. Due on due Goal Unhealthy drug u se screening. Due on due Goal CT-Colonography. Due on due Goal Lipid panel. Due on due Goal Zoster vaccine ( 1st). Due on due Goal Tobacco Use. Due on due Goal Review Allergy L ist. Due on due Goal Update Social Hi story. Due on due Goal Hepatitis C scre ening. Due on due Goal PHQ-9. Due on du e Goal FIT. Due on due Goal Height. Due on d ue Goal Unhealthy drug u se screening. Due on due Goal MASTER TECHNICIAN Scanned. Due on due Goal Tobacco Use. Due on due Goal UDT. Due on due Goal Weight. Due on d ue Goal Review Allergy L ist. Due on due Goal FIT. Due on due Goal CALENDER RUNNER Paperwork. Due on due Goal PHQ-9. Due on du e Goal Medication Recon ciliation. Due on due Goal Update Social Hi story. Due on due Goal Height. Due on d ue Goal FIT-DNA. Due on due Goal Creatinine. Due on due Goal ALT (SGPT). Due on due Goal Order Annual PT. Due on due Goal AST (SGOT). Due on due Goal Hepatitis C scre ening. Due on due Goal Lipid panel. Due on 023 due Goal OARS. Due on due Goal Zoster vaccine ( 1st). Due on due Goal CT-Colonography. Due on due Goal Medication Recon ciliation. Due on due Goal Unhealthy drug u se screening. Due on due Goal CALENDER RUNNER Paperwork. Due on due Goal Review Allergy L ist. Due on due Goal MASTER TECHNICIAN Scanned. Due on 023 due Goal Weight. Due on d ue Goal OARS. Due on due Goal CT-Colonography. Due on due Goal Order Annual PT. Due on due Goal Tobacco Use. Due on due Goal PHQ-9. Due on du e Goal FIT-DNA. Due on due Goal UDT. Due on due Goal Zoster vaccine ( 1st). Due on due Goal Creatinine. Due on due Goal Hepatitis C scre ening. Due on due Goal Update Social Hi story. Due on due Goal FIT. Due on due Goal Height. Due on d ue Goal ALT (SGPT). Due on due Goal Lipid panel. Due on due Goal AST (SGOT). Due on due Goal Creatinine. Due on due Goal CALENDER RUNNER Paperwork. Due on due Goal UDT. Due on due Goal MASTER TECHNICIAN Scanned. Due on due Goal PHQ-9. Due on du e Goal AST (SGOT). Due on due Goal OARS. Due on due Goal Unhealthy drug u se screening. Due on due Goal Review Allergy L ist. Due on due Goal Tobacco Use. Due on due Goal Height. Due on d ue Goal Order Annual PT. Due on due Goal Medication Recon ciliation. Due on due Goal CT-Colonography. Due on due Goal Zoster vaccine ( 1st). Due on due Goal FIT-DNA. Due on due Goal FIT. Due on due Goal ALT (SGPT). Due on due Goal Lipid panel. Due on due Goal Weight. Due on d ue Goal Update Social Hi story. Due on due Goal Hepatitis C scre ening. Due on due Goal AST (SGOT). Due on due Goal Medication Recon ciliation. Due on due Goal Height. Due on d ue Goal ALT (SGPT). Due on due Goal MASTER TECHNICIAN Scanned. Due on due Goal Lipid panel. Due on due Goal CT-Colonography. Due on due Goal Review Allergy L ist. Due on due Goal Creatinine. Due on due Goal Zoster vaccine ( 1st). Due on due Goal CALENDER RUNNER Paperwork. Due on due Goal Unhealthy drug u se screening. Due on due Goal Tobacco Use. Due on due Goal UDT. Due on due Goal FIT-DNA. Due on due Goal FIT. Due on due Goal Weight. Due on d ue Goal PHQ-9. Due on du e Goal Order Annual PT. Due on due Goal OARS. Due on due Goal Update Social Hi story. Due on due Goal Hepatitis C scre ening. Due on due Goal Weight. Due on d ue Goal Tobacco Use. Due on due Goal UDT. Due on due Goal CT-Colonography. Due on due Goal Review Allergy L ist. Due on due Goal Creatinine. Due on due Goal PHQ-9. Due on du e Goal FIT. Due on due Goal Lipid panel. Due on due Goal Unhealthy drug u se screening. Due on due Goal ALT (SGPT). Due on due Goal Medication Recon ciliation. Due on due Goal Zoster vaccine ( 1st). Due on due Goal Order Annual PT. Due on due Goal CALENDER RUNNER Paperwork. Due on due Goal FIT-DNA. Due on due Goal AST (SGOT). Due on due Goal OARS. Due on due Goal MASTER TECHNICIAN Scanned. Due on due Goal Hepatitis C scre ening. Due on due Goal Update Social Hi story. Due on due Goal Height. Due on d ue Goal Tobacco Use. Due on due Goal Zoster vaccine ( 1st). Due on due Goal FIT-DNA. Due on due Goal Height. Due on d ue Goal CT-Colonography. Due on due Goal Creatinine. Due on due Goal Update Social Hi story. Due on due Goal Hepatitis C scre ening. Due on due Goal Order Annual PT. Due on due Goal PHQ-9. Due on du e Goal UDT. Due on due Goal Lipid panel. Due on due Goal AST (SGOT). Due on due Goal Unhealthy drug u se screening. Due on due Goal CALENDER RUNNER Paperwork. Due on due Goal Weight. Due on d ue Goal MASTER TECHNICIAN Scanned. Due on due Goal Medication Recon ciliation. Due on due Goal ALT (SGPT). Due on due Goal OARS. Due on due Goal FIT. Due on due Goal Review Allergy L ist. Due on due Goal CT-Colonography. Due on due Goal Review Allergy L ist. Due on due Goal Weight. Due on d ue Goal PHQ-9. Due on du e Goal OARS. Due on due Goal Unhealthy drug u se screening. Due on due Goal Creatinine. Due on due Goal Height. Due on d ue Goal Medication Recon ciliation. Due on due Goal Update Social Hi story. Due on due Goal FIT-DNA. Due on due Goal ALT (SGPT). Due on due Goal CALENDER RUNNER Paperwork. Due on due Goal Lipid panel. Due on due Goal AST (SGOT). Due on due Goal Order Annual PT. Due on due Goal Tobacco Use. Due on due Goal Zoster vaccine ( 1st). Due on due Goal UDT. Due on due Goal FIT. Due on due Goal MASTER TECHNICIAN Scanned. Due on due Goal Hepatitis C scre ening. Due on due Goal Lipid panel. Due on 023 due Goal PHQ-9. Due on du e Goal Zoster vaccine ( 1st). Due on due Goal Medication Recon ciliation. Due on due Goal Review Allergy L ist. Due on due Goal Update Social Hi story. Due on due Goal Unhealthy drug u se screening. Due on due Goal Weight. Due on d ue Goal Tobacco Use. Due on due Goal FIT-DNA. Due on due Goal Hepatitis C scre ening. Due on due Goal Height. Due on d ue Goal FIT. Due on due Goal ALT (SGPT). Due on due Goal MASTER TECHNICIAN Scanned. Due on due Goal CALENDER RUNNER Paperwork. Due on due Goal OARS. Due on due Goal UDT. Due on due Goal Creatinine. Due on due Goal Order Annual PT. Due on due Goal AST (SGOT). Due on due Goal CT-Colonography. Due on due Goal AST (SGOT). Due on due Goal Creatinine. Due on due Goal OARS. Due on due Goal Hepatitis C scre ening. Due on due Goal Order Annual PT. Due on due Goal Tobacco Use. Due on due Goal UDT. Due on due Goal ALT (SGPT). Due on due Goal FIT. Due on due Goal Lipid panel. Due on due Goal Unhealthy drug u se screening. Due on due Goal Zoster vaccine ( 1st). Due on due Goal MASTER TECHNICIAN Scanned. Due on due Goal PHQ-9. Due on du e Goal Height. Due on d ue Goal Review Allergy L ist. Due on due Goal CALENDER RUNNER Paperwork. Due on due Goal Weight. Due on d ue Goal Medication Recon ciliation. Due on due Goal CT-Colonography. Due on due Goal Update Social Hi story. Due on due Goal FIT-DNA. Due on due Goal Unhealthy drug u se screening. Due on due Goal CT-Colonography. Due on due Goal PHQ-9. Due on du e Goal Hepatitis C scre ening. Due on due Goal AST (SGOT). Due on due Goal Order Annual PT. Due on due Goal CALENDER RUNNER Paperwork. Due on due Goal OARS. Due on due Goal Weight. Due on d ue Goal FIT-DNA. Due on due Goal Creatinine. Due on due Goal Update Social Hi story. Due on due Goal UDT. Due on due Goal Medication Recon ciliation. Due on due Goal MASTER TECHNICIAN Scanned. Due on due Goal FIT. Due on due Goal Lipid panel. Due on due Goal ALT (SGPT). Due on due Goal Review Allergy L ist. Due on due Goal Zoster vaccine ( 1st). Due on due Goal Tobacco Use. Due on due Goal Height. Due on d ue Goal CALENDER RUNNER Paperwork. Due on due Goal MASTER TECHNICIAN Scanned. Due on 022 due Goal Hepatitis C scre ening. Due on due Goal ALT (SGPT). Due on due Goal Weight. Due on d ue Goal FIT-DNA. Due on due Goal Medication Recon ciliation. Due on due Goal OARS. Due on due Goal AST (SGOT). Due on due Goal UDT. Due on due Goal Order Annual PT. Due on due Goal Creatinine. Due on due Goal Unhealthy drug u se screening. Due on due Goal FIT. Due on due Goal PHQ-9. Due on du e Goal Update Social Hi story. Due on due Goal Height. Due on d ue Goal Tobacco Use. Due on due Goal Review Allergy L ist. Due on due Goal Lipid panel. Due on due Goal Zoster vaccine ( 1st). Due on due Goal CT-Colonography. Due on due Goal Creatinine. Due on due Goal CALENDER RUNNER Paperwork. Due on due Goal AST (SGOT). Due on due Goal Weight. Due on d ue Goal Review Allergy L ist. Due on due Goal MASTER TECHNICIAN Scanned. Due on due Goal ALT (SGPT). Due on due Goal FIT-DNA. Due on due Goal PHQ-9. Due on du e Goal Medication Recon ciliation. Due on due Goal Hepatitis C scre ening. Due on due Goal OARS. Due on due Goal Tobacco Use. Due on due Goal FIT. Due on due Goal Update Social Hi story. Due on due Goal Unhealthy drug u se screening. Due on due Goal CT-Colonography. Due on due Goal Order Annual PT. Due on due Goal Height. Due on d ue Goal UDT. Due on due Goal Zoster vaccine ( 1st). Due on due Goal Lipid panel. Due on due Goal MASTER TECHNICIAN Scanned. Due on due Goal OARS. Due on due Goal Order Annual PT. Due on due Goal ALT (SGPT). Due on due Goal Creatinine. Due on due Goal CALENDER RUNNER Paperwork. Due on due Goal UDT. Due on due Goal Unhealthy drug u se screening. Due on due Goal Hepatitis C scre ening. Due on due Goal Review Allergy L ist. Due on due Goal Zoster vaccine ( ). Due on due Goal PHQ-9. Due on du e Goal Height. Due on d ue Goal Medication Recon ciliation. Due on due Goal Lipid panel. Due on due Goal FIT-DNA. Due on due Goal AST (SGOT). Due on due Goal Weight. Due on d ue Goal FIT. Due on due Goal Update Social Hi story. Due on due Goal Tobacco Use. Due on due Goal CT-Colonography. Due on due Goal PHQ-9. Due on du e Goal Zoster vaccine ( ). Due on due Goal Weight. Due on d ue Goal Lipid panel. Due on due Goal Creatinine. Due on due Goal CALENDER RUNNER Paperwork. Due on due Goal Medication Recon ciliation. Due on due Goal Update Social Hi story. Due on due Goal AST (SGOT). Due on due Goal MASTER TECHNICIAN Scanned. Due on due Goal ALT (SGPT). Due on due Goal Order Annual PT. Due on due Goal Hepatitis C scre ening. Due on due Goal FIT. Due on due Goal FIT-DNA. Due on due Goal Unhealthy drug u se screening. Due on due Goal OARS. Due on due Goal Tobacco Use. Due on due Goal Review Allergy L ist. Due on due Goal UDT. Due on due Goal Height. Due on d ue Goal CT-Colonography. Due on due Goal AST (SGOT). Due on due Goal MASTER TECHNICIAN Scanned. Due on due Goal Medication Recon ciliation. Due on due Goal CALENDER RUNNER Paperwork. Due on due Goal UDT. Due on due Goal ALT (SGPT). Due on due Goal Height. Due on d ue Goal Lipid panel. Due on due Goal Creatinine. Due on due Goal Order Annual PT. Due on due Goal Hepatitis C scre ening. Due on due Goal OARS. Due on due Goal CT-Colonography. Due on due Goal FIT. Due on due Goal Unhealthy drug u se screening. Due on due Goal FIT-DNA. Due on due Goal Review Allergy L ist. Due on due Goal Tobacco Use. Due on due Goal Update Social Hi story. Due on due Goal PHQ-9. Due on du e Goal Zoster vaccine ( ). Due on due Goal Weight. Due on d ue Goal ALT (SGPT). Due on due Goal Lipid panel. Due on due Goal Order Annual PT. Due on due Goal OARS. Due on due Goal Review Allergy L ist. Due on due Goal PHQ-9. Due on du e Goal Update Social Hi story. Due on due Goal FIT-DNA. Due on due Goal Zoster vaccine ( ). Due on due Goal FIT. Due on due Goal Tobacco Use. Due on due Goal Weight. Due on d ue Goal Unhealthy drug u se screening. Due on due Goal Creatinine. Due on due Goal Hepatitis C scre ening. Due on due Goal CT-Colonography. Due on due Goal UDT. Due on due Goal Medication Recon ciliation. Due on due Goal CALENDER RUNNER Paperwork. Due on due Goal MASTER TECHNICIAN Scanned. Due on due Goal Height. Due on d ue Goal AST (SGOT). Due on due Goal UDT. Due on due Goal Zoster vaccine ( 1st). Due on due Goal Unhealthy drug u se screening. Due on due Goal Hepatitis C scre ening. Due on due Goal FIT. Due on due Goal Order Annual PT. Due on due Goal Update Social Hi story. Due on due Goal Review Allergy L ist. Due on due Goal Creatinine. Due on due Goal Weight. Due on d ue Goal FIT-DNA. Due on due Goal CT-Colonography. Due on due Goal CALENDER RUNNER Paperwork. Due on due Goal MASTER TECHNICIAN Scanned. Due on due Goal Medication Recon ciliation. Due on due Goal OARS. Due on due Goal Height. Due on d ue Goal Lipid panel. Due on due Goal ALT (SGPT). Due on due Goal PHQ-9. Due on du e Goal Tobacco Use. Due on due Goal AST (SGOT). Due on due Goal CALENDER RUNNER Paperwork. Due on due Goal Unhealthy drug u se screening. Due on due Goal Zoster vaccine ( 1st). Due on due Goal Creatinine. Due on due Goal ALT (SGPT). Due on due Goal CT-Colonography. Due on due Goal Tobacco Use. Due on due Goal Order Annual PT. Due on due Goal Height. Due on d ue Goal Medication Recon ciliation. Due on due Goal Update Social Hi story. Due on due Goal AST (SGOT). Due on due Goal FIT. Due on due Goal UDT. Due on due Goal OARS. Due on due Goal Lipid panel. Due on due Goal Review Allergy L ist. Due on due Goal MASTER TECHNICIAN Scanned. Due on due Goal FIT-DNA. Due on due Goal Hepatitis C scre ening. Due on due Goal Weight. Due on d ue Goal PHQ-9. Due on du e Goal UDT. Due on due Goal AST (SGOT). Due on due Goal Creatinine. Due on due Goal CALENDER RUNNER Paperwork. Due on due Goal MASTER TECHNICIAN Scanned. Due on due Goal Order Annual PT. Due on due Goal Update Social Hi story. Due on due Goal ALT (SGPT). Due on due Goal OARS. Due on due Goal Lipid panel. Due on due Goal Height. Due on d ue Goal Review Allergy L ist. Due on due Goal Medication Recon ciliation. Due on due Goal PHQ-9. Due on du e Goal Hepatitis C scre ening. Due on due Goal FIT. Due on due Goal Unhealthy drug u se screening. Due on due Goal Weight. Due on d ue Goal CT-Colonography. Due on due Goal Tobacco Use. Due on due Goal Zoster vaccine ( 1st). Due on due Goal FIT-DNA. Due on due Goal Update Social Hi story. Due on due Goal Tobacco Use. Due on due Goal Zoster vaccine ( 1st). Due on due Goal MASTER TECHNICIAN Scanned. Due on due Goal CT-Colonography. Due on due Goal Review Allergy L ist. Due on due Goal Unhealthy drug u se screening. Due on due Goal Weight. Due on d ue Goal CALENDER RUNNER Paperwork. Due on due Goal PHQ-9. Due on du e Goal Creatinine. Due on due Goal Medication Recon ciliation. Due on due Goal Order Annual PT. Due on due Goal FIT-DNA. Due on due Goal Lipid panel. Due on due Goal AST (SGOT). Due on due Goal Height. Due on d ue Goal ALT (SGPT). Due on due Goal OARS. Due on due Goal UDT. Due on due Goal Hepatitis C scre ening. Due on due Goal FIT. Due on due Goal Lipid panel. Due on due Goal Medication Recon ciliation. Due on due Goal FIT-DNA. Due on due Goal Update Social Hi story. Due on due Goal Unhealthy drug u se screening. Due on due Goal Review Allergy L ist. Due on due Goal PHQ-9. Due on du e Goal CT-Colonography. Due on due Goal Tobacco Use. Due on due Goal Hepatitis C scre ening. Due on due Goal FIT. Due on due Goal Height. Due on d ue Goal Weight. Due on d ue Goal Zoster vaccine ( ). Due on due Goal Medication Recon ciliation. Due on due Goal FIT-DNA. Due on due Goal Hepatitis C scre ening. Due on due Goal Unhealthy drug u se screening. Due on due Goal Zoster vaccine ( ). Due on due Goal Update Social Hi story. Due on due Goal Lipid panel. Due on due Goal CT-Colonography. Due on due Goal PHQ-9. Due on du e Goal Height. Due on d ue Goal FIT. Due on due Goal Review Allergy L ist. Due on due Goal Tobacco Use. Due on due Goal Weight. Due on d ue Goal Lipid panel. Due on due Goal Weight. Due on d ue Goal Zoster vaccine ( 1st). Due on due Goal Tobacco Use. Due on due Goal FIT-DNA. Due on due Goal PHQ-9. Due on du e Goal Update Social Hi story. Due on due Goal CT-Colonography. Due on due Goal FIT. Due on due Goal Unhealthy drug u se screening. Due on due Goal Review Allergy L ist. Due on due Goal Medication Recon ciliation. Due on due Goal Height. Due on d ue Goal Hepatitis C scre ening. Due on due Goal CT-Colonography. Due on due Goal Review Allergy L ist. Due on due Goal Update Social Hi story. Due on due Goal Height. Due on d ue Goal Hepatitis C scre ening. Due on due Goal Weight. Due on d ue Goal PHQ-9. Due on du e Goal Unhealthy drug u se screening. Due on due Goal FIT. Due on due Goal Zoster vaccine ( 1st). Due on due Goal Medication Recon ciliation. Due on due Goal Lipid panel. Due on due Goal Tobacco Use. Due on due Goal FIT-DNA. Due on due Goal Tobacco Use. Due on due Goal Medication Recon ciliation. Due on due Goal Weight. Due on d ue Goal PHQ-9. Due on du e Goal Height. Due on d ue Goal Update Social Hi story. Due on due Goal Review Allergy L ist. Due on due Goal Weight. Due on d ue Goal Medication Recon ciliation. Due on due Goal Update Social Hi story. Due on due Goal Height. Due on d ue Goal Tobacco Use. Due on due Goal PHQ-9. Due on du e Goal Review Allergy L ist. Due on due Goal Tobacco Use. Due on due Goal Height. Due on d ue Goal Review Allergy L ist. Due on due Goal Update Social Hi story. Due on due Goal Weight. Due on d ue Goal Medication Recon ciliation. Due on due Goal PHQ-9. Due on du e Goal Height. Due on d ue Goal Review Allergy L ist. Due on due Goal Medication Recon ciliation. Due on due Goal PHQ-9. Due on du e Goal Weight. Due on d ue Goal Tobacco Use. Due on due Goal Update Social Hi story. Due on due Goal PHQ-9. Due on du e Goal Weight. Due on d ue Goal Medication Recon ciliation. Due on due Goal Height. Due on d ue Goal Tobacco Use. Due on due Goal Review Allergy L ist. Due on due Goal Update Social Hi story. Due on due Goal Weight. Due on d ue Goal PHQ-9. Due on du e Goal Medication Recon ciliation. Due on due Goal Update Social Hi story. Due on due Goal Tobacco Use. Due on due Goal Review Allergy L ist. Due on due Goal Height. Due on d ue Goal Height. Due on d ue Goal Tobacco Use. Due on due Goal Update Social Hi story. Due on due Goal Review Allergy L ist. Due on due Goal Medication Recon ciliation. Due on due Goal PHQ-9. Due on du e Goal Weight. Due on d ue Goal Tobacco cessation counseling completed Appointment Jamari Omar BOOKED Future Order: Radiology Order MR I Lumbar Spine W/O Dye ([email or web address]), Ordered on: Ordered Future Order: Radiology Order MR I Lumbar Spine W/O Dye ([email or web address]), Ordered on: Ordered Future Order: Radiology Order MR I (MRI-Other), Body Site: BL hips, Ordered on: Ordered Future Order: Radiology Order MR I Lumbar Spine W/O Dye ([email or web address]), Ordered on: Ordered Future Order: Radiology Order MR I Lumbar Spine W/O Dye ([email or web address]), Collected on: Ordered Future Order: Radiology Order MR Lumbar WO ([id number]), Sent on: Sent History Of Present Illness Encounter Date Complaint History Of Prese nt Illness low back pain Severity level i s 10. Duration: chronic. The problem is worsening. The client describes the pain as burning and sharp. Symptoms are aggravated by bending, sitting, standing, walking, reaching overhead, housework and social activities. Symptoms are relieved by pain meds/drugs. Comments: This i s my first evaluation of the patient, who was last seen by Gael Wheeler PA-C on 03/06/24. Previous records, clinic notes, and imaging reviewed.Omar is a 58 y/o who presents to the clinic for a follow up chronic low back pain. His is present today and contributes to the conversation of his care. Pain is worse since ANGY. Describes the pain as dull, sharp, stabbing, and burning. Endorses shooting pain down the posterior BLE (R>L) though these are rare. Pain is worse with prolonged standing. States that he gets some relief with trunk flexion. Denies hx of back surgery. States he fell and broke his tailbone about 2 years ago. States he saw a surgeon, possibly at [facility], who recommended surgical intervention but patient does not want to move forward with that. No other concerns today. low back pain Severity level i s 8. Duration: chronic. The problem is worsening. It occurs persistently. Location of pain is lower back and legs. Comments: Michelle carlisle is a 58 y/o who presents virtually for a follow up and medication refill regarding chronic low back pain. Pain has continued to be worse since ANGY. Level is 8/10.Most of today's visit was spent discussing his UDT results from 02/24/24 which was (+) Xanax and hydrocodone and metabolites not prescribed and (-) oxycodone and metabolites. The patient admits to taking hydrocodone but is unsure of where it came from. The patient was informed that he would need to see his PCP for a referral to another clinic in order to continue his medications or self taper. Patient understood and is agreeable to receive his last script.No other concerns today. low back pain Severity level i s 8. Duration: chronic. The problem is worsening. It occurs persistently. Location of pain is lower back and legs. The client describes the pain as an ache and sharp. Comments: Michelle carlisle is a 58 y/o who presents in clinic for a follow up and medication refill regarding chronic low back pain. Pain has continued to be worse since ANGY. Level is 8/10.Considering surgery at this point has his low back pain is severe on many days of the month. He has his lumbar MRI scheduled for 04/07/24 which [place]. Requests valium. Medication provides moderate relief and allows for increased functionality per patient intake. Presents without medication today as he forgot to bring them to his appointment. States he has 1-2 at home. CALENDER RUNNER violation issued and patient notified that we will only provide a 2 weeks script today. Denies side effects from current medication regimen. No other concerns today. low back pain Severity level i s 7. Duration: chronic. The problem is worsening. It occurs persistently. Location of pain is lower back. The client describes the pain as an ache. Comments: Michelle carlisle is a 58 y/o who presents via [facility] for virtual follow up and medication refill regarding chronic low back pain. Pain has continued to be worse since ANGY. States he has to wait on updating imaging as he has a lot going on currently.Considering surgery at this point has his low back pain is severe on many days of the month. He intends to schedule his lumbar MRI once able.Of note, he continues to experience swelling and pain in his legs. Was previously established with a ammunition storekeeper following his heart attack, but would like a referral to a vascular specialist.Medication provides moderate relief and allows for increased functionality per patient intake. Denies side effects from current medication regimen. No other concerns today. Comments: Michelle carlisle is a 58 y/o who presents via [facility] for virtual follow up and medication refill regarding chronic low back pain. Pain has been worse since ANGY. Continues to report lingering swelling around his battery site s/p Medtronic lumbar SCS explant on 08/18/23.Considering surgery at this point has his low back pain is severe on many days of the month. He intends to schedule his lumbar MRI soon. Currently following with a ammunition storekeeper.Medication provides moderate relief and allows for increased functionality per patient intake. Denies side effects from current medication regimen. No other concerns today. low back pain Severity level i s 10. Duration: chronic. The problem is worsening. It occurs persistently. Comments: Michelle carlisle is a 58 y/o who presents via phone visit for follow up and medication refill regarding chronic low back pain. The visit lasted 5 minutes. Pain has been fluctuating. Notes some lingering swelling around his battery site s/p Medtronic lumbar SCS explant on 08/18/23. Reports he is happy to no longer have pinching in his back where the battery was.Considering surgery at this point has his low back pain is severe on many days of the month. Medication provides moderate relief and allows for increased functionality per patient intake. Denies side effects from current medication regimen. No other concerns today. low back pain Severity level i s 8. Duration: chronic. The problem is stable. It occurs persistently. Location of pain is lower back. Comments: Michelle carlisle is a 58 y/o who presents in clinic for follow up and medication refill regarding chronic low back pain. Pain has been worse over the past month, level is at a 8/10. Notes some lingering swelling around his battery site s/p Medtronic lumbar SCS explant on 08/18/23. Reports he is happy to no longer have pinching in his back where the battery was. Wound is healing well without any signs or symptoms of infection. Patient is agreeable to update imaging so he can pursue other interventions in the future. Considering surgery at this point has his low back pain is severe on most days of the month. MRI has been faxed to [facility] but he has not scheduled yet.Medication provides moderate relief and allows for increased functionality per patient intake. Denies side effects from current medication regimen. Requests to be recertified for medical cannabis, utilizing the tabs to help him sleep. No other concerns today. low back pain Severity level i s 8. Duration: chronic. The problem is worsening. It occurs persistently. Location of pain is lower back, gluteal area and legs. The client describes the pain as an ache, burning and sharp. Symptoms are aggravated by all movement. Symptoms are relieved by pain meds/drugs, rest, sitting and changing positions. low back pain Severity level i s 7. Duration: chronic. The problem is worsening. It occurs persistently. Location of pain is lower back. Comments: Michelle carlisle is a 58 y/o who presents via [facility] for follow up and medication refill regarding chronic low back pain. Pain has been worse over the past month, level is at a 7/10. Notes some lingering swelling around his battery site s/p Medtronic lumbar SCS explant on 08/18/23. Reports he is happy to no longer have pinching in his back where the battery was. Wound is healing well without any signs or symptoms of infection. Patient is agreeable to update imaging so he can pursue other interventions in the future. Considering surgery at this point.Medication provides moderate relief and allows for increased functionality per patient intake. Denies side effects from current medication regimen. No other concerns today. Comments: Michelle carlisle is a 58 y/o who presents via [facility] for follow up and medication refill regarding chronic low back pain. Pain has been stable since ANGY, level is at a 7/10. Pain radiates into BL buttocks and legs. Also c/o BL hip pain. He is s/p Medtronic lumbar SCS explant on 08/18/23. Reports he is happy to no longer have pinching in his back where the battery was. Agreeable to update imaging so he can pursue other interventions in the future.Medication provides moderate relief and allows for increased functionality per patient intake. Denies side effects from current medication regimen. No other concerns today. low back pain Severity level i s 7. Duration: chronic. The problem is stable. It occurs persistently. Location of pain is lower back. low back pain Severity level i s mild-moderate. Duration: chronic. The problem is stable. It occurs persistently. Comments: Michelle carlisle is a 58 y/o who presents via phone visit for follow up and medication refill regarding chronic low back pain. Pain has been stable since ANGY. Pain radiates into BL buttocks and legs. Also c/o BL hip pain. States movement aggravates his pain.States he is ready to pursue Medtronic SCS explant. His device is currently off, would like to schedule for the end of this month. Discussed the need to hold his aspirin.Medication provides moderate relief and allows for increased functionality per patient intake. Denies side effects from current medication regimen. No other concerns today.Phone visit lasted 8 minutes. Comments: Michelle carlisle is a 58 y/o who presents in clinic today for follow up and medication refill regarding chronic low back pain. Pain has been stable since ANGY and pain level averages 3/10. Pain radiates into BL buttocks and legs. Also c/o BL hip pain. States movement aggravates his pain.States he was ready to pursue Medtronic SCS explant, but had to push it off d/t upcoming deadline with his housing. His device is currently off and he is now ready to schedule his explant. 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 His eyes are very irritated throughout the day.Medication provides 25% relief and allows for increased functionality per patient intake. Presents without his medication today as he had to reschedule his appointment to past his runout date d/t personal reasons. Denies side effects from current medication regimen. No other concerns today. low back pain Severity level i s 3. Duration: chronic. The problem is stable. It occurs persistently. Comments: Michelle carlisle is a 58 y/o who presents virtually for follow up and medication refill regarding chronic low back pain. Pain has been stable since ANGY and pain level averages 3/10. Pain radiates into BL buttocks and legs. Also c/o BL hip pain. States movement aggravates his pain.States he was ready to pursue SCS explant, but had to push it off d/t upcoming deadline with his housing. States he still looks forward to the procedure. Airport Attendant has cleared him. Would like to update imaging after SCS explant. Device is currently off. His next security controls assessor appointment is not scheduled until the end of the summer. Medication provides 25% relief and allows for increased functionality per patient intake. Presents on track with prescribed medication. Denies side effects from current medication regimen. No other concerns today. low back pain Severity level i s 3. Duration: chronic. The problem is stable. Location of pain is lower back and legs. low back pain Duration: chroni c. Location of pain is lower back. Comments: Michelle carlisle is a 58 y/o who presents for follow up and medication refill regarding chronic low back pain. Pain has been worse since ANGY and pain level averages 7/10. Pain radiates into BL buttocks and legs. Also c/o BL hip pain. States movement aggravates his pain.Continues to pursue SCS explant. Looks forward to the procedure. Airport Attendant has cleared him to move forward with the procedure if he'd like. Would like to update imaging after SCS explant.His next security controls assessor appointment is not scheduled until the end of the summer. Medication provides 20% relief and allows for increased functionality per patient intake. Presents without medication available for count. States he ran out last night, which would be short. Denies side effects from current medication regimen. No other concerns today. low back pain Severity level i s 7. Duration: chronic. The problem is worsening. It occurs persistently. Location of pain is lower back. The client describes the pain as an ache, burning and sharp. Symptoms are aggravated by ascending stairs, bending, descending stairs, lifting, lying/rest, sitting, standing, twisting, walking, prolonged positioning, movement and housework. Symptoms are relieved by lying down, pain meds/drugs, rest, sitting, changing positions and standing. Comments: Celso smith s a 58 y/o who presents for follow up and medication refill regarding chronic low back pain. Pain has been worse since ANGY and pain level averages 7/10. Pain radiates into BL buttocks and legs. Also c/o BL hip pain. States movement aggravates his pain.Continues to pursue SCS explant. Looks forward to the procedure. Airport Attendant has cleared him to move forward with the procedure. Would like to update imaging after SCS explant.Medication provides 20% relief and allows for increased functionality per patient intake. Presents without medication available for count. States he ran out last night, which would be short. Denies side effects from current medication regimen. No other concerns today. Comments: Celso smith s a 57 y/o who presents for virtual follow up and medication refill regarding chronic low back pain. Pain has been stable since ANGY and pain level averages 8/10. Endorses R leg pain that has been bothersome. Also c/o BL hip pain. Would like to obtain imaging of low back and BL hips.Continues to pursue SCS explant. Looks forward to the procedure. Has to clear with security controls assessor. Will f/u with cardiology 02/26/23 for testing.Medication provides 20% relief and allows for increased functionality per patient intake. Presents on track with prescribed medication. Denies side effects from current medication regimen. No other concerns today. low back pain Severity level i s 8. Duration: chronic. The problem is stable. It occurs persistently. Location of pain is lower back, legs and hips. Comments: Celso smith s a 57 y/o who presents for virtual follow up and medication refill regarding chronic low back pain. Pain has been worse since ANGY and pain level averages 10/10. Reports that walking and climbing stairs are difficult. Reports issues with defibrillator and had to stop Suboxone as it was affecting his heart. States his heart has stopped multiple times and is currently following with cardiology. Next f/u is 03/04/23.Continues to pursue SCS explant. Looks forward to the procedure.Medication provides 0% relief, as he had to stop taking Suboxone to protect his heart, and allows for increased functionality per patient intake. Inquires about other medications that will provide relief, but not harm his heart. Denies side effects from current medication regimen. No other concerns today. low back pain Severity level i s 8. Duration: chronic. The problem is stable. It occurs persistently. Location of pain is lower back. Comments: This i s my first evaluation of Celso, a 57 y/o who presents for follow up and medication refill regarding chronic low back pain. The patient is routinely followed by my colleague, Timothy Wheeler PA-C. Pain has worsened since ANGY and pain level averages 10/10. Reports that walking and climbing stairs are difficult. States that his pain has been increased since coccyx fracture a few months ago.Medication provides 10% relief and allows for increased functionality per patient intake. Inquires about other medications given that he does not find much benefit from Suboxone. Denies side effects from current medication regimen. No other concerns today. low back pain Severity level i s 10. Duration: chronic. The problem is worsening. It occurs persistently. Location of pain is lower back. The client describes the pain as an ache, burning and sharp. Symptoms are aggravated by ascending stairs, bending, descending stairs, lifting, running, sneezing, twisting, walking, housework, movement and prolonged positioning. Symptoms are relieved by pain meds/drugs, rest, sitting and changing positions. Comments: Celso carlisle resents for virtual follow up and medication refill. Patient c/o chronic low back pain. Pain has been stable since last visit. Noted decreased benefit with use of Medtronic lumbar SCS following a fall. SCS generator pocket revision scheduled on 12/10/2022. He is looking forward to the procedure. Medication provides 20% relief and allows for increased functionality per patient intake. Inquires about increasing Suboxone to TID. Denies side effects from current medication regimen. No other concerns today. Back Pain Duration: chroni c. The problem is stable. It occurs persistently. Location of pain is lower back. Back pain Severity level i s 3. The problem is worsening. Location of pain is lower back. The client describes the pain as an ache, burning, sharp and tingling. Symptoms are aggravated by ascending stairs, bending, descending stairs, lifting, running, sitting, standing, twisting and walking. Symptoms are relieved by heat, lying down, pain meds/drugs, stretching, rest and changing positions. Comments: Uzair presents for virtual follow up and medication refill. Patient c/o chronic low back pain. Pain has been worse since last visit. Notes difficulty completing lumbar MRI d/t pacemaker.Noted decreased benefit with use of Medtronic lumbar SCS following the fall. States that he f/u with his spinal surgeon and it was recommended to take the device out. S/p SCS reprogramming on 10/28/22 with significant relief. Still concerned about itching and pain around battery site, interested in site revision. Requests site revision in 2022 due to improving insurance.Medication provides 20% relief and allows for increased functionality per patient intake. Suboxone 4mg was beneficial, requested increase by phone call. He would still like an increased dose. Denies side effects from current medication regimen. No other concerns today. Comments: Uzair presents for a follow up and medication refill. Patient c/o chronic low back pain. Pain has been worse since last visit. His coccyx pain r/t a fracture 08/2022 continues to persist. Notes decreased benefit with use of Medtronic lumbar SCS following the fall. States that he f/u with is spinal surgeon and it was recommended to take the device out. He would like to pursue explantation. Medication provides 60% relief and allows for increased functionality per patient intake. Inquires about Suboxone as his son discussed the medication with him. Denies side effects from current medication regimen. No other concerns today. Back Pain Duration: chroni c. The problem is worsening. It occurs persistently. Location of pain is lower back. The client describes the pain as an ache, burning, sharp and tingling. Symptoms are aggravated by ascending stairs, bending, descending stairs, lifting, running, sitting, standing, twisting and walking. Symptoms are relieved by heat, lying down, pain meds/drugs, stretching, rest and changing positions. Back Pain Severity level i s 10. Duration: chronic. The problem is worsening. It occurs persistently. Location of pain is lower back and hips. left leg. The client describes the pain as an ache, burning, sharp and tingling. Symptoms are aggravated by ascending stairs, bending, descending stairs, lifting, running, sitting, standing, twisting, walking, housework, movement and prolonged positioning. Symptoms are relieved by ice, lying down and changing positions. Comments: Milvia alexander is here for an in office follow up and medications refill.The patient states their chronic pain has been worse. He broke his tailbone about 2 weeks ago. He was getting things out of his car and he fell. He saw his PCP for this and had an XR done and found a fracture in his tailbone. The pain in his tailbone over reeves his back pain. He has tried using his SCS on his tailbone, but this didn't help. States he has sharp pains that radiate down his legs. He initially had this pain in both of his legs. It is now only in one leg. He has had increased difficulty walking.He has fallen again since. He fell while on his stairs and went down to his knees. This has worsened his pain.The patient is staying active. Reports current medication regimen provides pain relief, decreasing their pain to a 10/10. Medications allow for increased functionality. Denies side effects from current medication regimen. No other concerns today. Comments: Celso smith s a 57 y/o man here for follow up consult and medications refill regarding chronic back pain. Pain has been fluctuating since ANGY. Reports soreness in his back and BL legs. Endorses that he turns his SCS up/down depending on his pain level. Reports difficulty walking, specifically after driving.Current medication regimen provides 50% pain relief and allows increased functionality. Denies side effects from current medication regimen. No other concerns today. Back pain Duration: chroni c. The problem is fluctuating. It occurs persistently. Symptoms are relieved by SCS implant. Comments: Celso orestes resents for follow up and medication management. Follows for chronic back pain. Reports pain has been fluctuating since ANGY. S/p SCS implant with Dr. Maravilla 04/28/22. States reprogram with Medtronic ANGY was beneficial. Notes soreness at battery site. Expresses interest in revision to move battery site.Reports current medication regimen provides 50% pain relief and allows increased functionality. Presents without medication available for count. Denies side effects from current medication regimen. Inquires about increasing medication. No other concerns today. Back Pain Severity level i s 7. Duration: chronic. The problem is fluctuating. It occurs persistently. The client describes the pain as an ache, burning, sharp and tingling. Symptoms are aggravated by ascending stairs, bending, descending stairs, lifting, running, standing, twisting, walking, prolonged positioning, movement and housework. Symptoms are relieved by ice, pain meds/drugs and sitting. Comments: Celso carlisle resents for follow up and medication management. Follows for chronic back pain. Reports pain has been stable since ANGY. S/p SCS implant with Dr. Maravilla 04/28/22. States reprogram with Medtronic ANGY was beneficial. Interested in testing other levels next OV.Reports current medication regimen provides 50% pain relief and allows increased functionality. Presents with surplus of prescribed medication. Would like to switch to Percocet. Denies side effects from current medication regimen. No other concerns today. Back Pain Severity level i s 8. Duration: chronic. The problem is stable. It occurs persistently. The client describes the pain as an ache and sharp. Symptoms are aggravated by ascending stairs, bending, descending stairs, lifting, running, sitting, standing, twisting, walking, prolonged positioning, movement and housework. Symptoms are relieved by lying down, pain meds/drugs and rest. Back Pain Severity level i s 8. Duration: chronic. The problem is worsening. It occurs persistently. The client describes the pain as an ache and sharp. Symptoms are aggravated by ascending stairs, bending, descending stairs, lifting, running, sitting, standing, twisting, walking, prolonged positioning, housework and movement. Symptoms are relieved by lying down, pain meds/drugs and rest. Comments: Celso carlisle resents for follow up and SCS management. Follows for chronic back pain. Reports pain has been worse since ANGY. S/p SCS implant with Dr. Maravilla 04/28/22. Originally reported greater than 50% pain relief. Currently reporting 10% pain relief, would like to reprogram with Medtronic. Reports additional pain and soreness around IPG site. Expresses frustrations with increased pain and treatment.Would like to begin opioid therapy through [facility]. Was previously managed by her PCP. No other concerns today. Comments: Milvia alexander presents for postop wound check s/p SCS implant on 04/28/2022. No s/s of infection are present or reported. Reports some post-op pain. Notes he is excited to get the SCS turned on.No other concerns today. Back Pain Duration: chroni c. low back pain Severity level i s 7. Duration: chronic. The problem is worsening. It occurs persistently. Location of pain is lower back, neck and R leg. The client describes the pain as an ache, burning, numbness, sharp and tingling. Symptoms are aggravated by bending, lifting, lying/rest, standing, twisting, walking, housework, movement and prolonged positioning. Symptoms are relieved by ice, massage, pain meds/drugs and changing positions. lumbago Patient is a 56 year old male presenting with complaints of chronic low back and bilateral leg pain that have been on going for around 20 years. He notes that his pain has increased over the years and has become debilitating and is affecting every aspect of his life. He states that he has increased pain and swelling in his low back and legs when he sits too long and is only able to stand for 10 minutes. He notes that he is only able to walk 1/2 block before he needs to sit down. He is only able to sleep for an hour at a time. He states that he relies on his to drive because of his symptoms. He notes that he has around 28 [address] at his apartment building and is having significant difficulty negotiating his home. Patient's symptoms include pain, numbness, and tingling into his legs, bilaterally. Patient notes associated weakness. Symptoms are somewhat relieved with position changes but this doesn't always help. He has tried multiple different interventions, including physical therapy but has not had relief of his pain. He notes that his current level of discomfort limits everything he is able to do each day and is currently limiting his overall quality of life. He would like to decrease his overall discomfort to allow him to perform his daily, functional activities with less limitation and an improved quality of life. low back pain (comments) Omar is a 56 y/o male, presenting for initial consult in the setting of chronic low back pain with radiation into BL legs, referred by Dr. Rodas at [facility]. He prefers to go by the name of Celso. He is accompanied by his Cathy today who contributes to the conversation. He states his pain is intermittent, sometimes lasting for one day and then going away, then sometimes it can last 2-3 weeks, constant. Sometimes L or R side can be swollen. He states his twisting is limited ROM before he feels like he is being ripped. Leg pain when sitting, laying down and states he cannot walk farther than a block. Radiation down to ankles, states it is hard to tell if posterior or anterior in nature. Leaning forward sometimes helps with the pain. He states it takes a long time to go back to sitting from bending forward. He states he finds himself leaning forward a lot to help with the pain. Reports hx of 3 heart attacks and has a Medtronic pacemaker. Cannot lay on his stomach at all. Back pain is worse than legs.He states he met with Dr. Leon several years ago, no spine surgery recommended.Treatment tried Last did PT years ago at [facility] Hydrocodone 7.5-325mg TID helps a little but not enough to manage pain, Gabapentin 300mg #1 in AM and #2 at night without benefit. Lyrica, Amitriptyline, Tramadol, Hydrocodone, LoratabUDT, expect (+) marijuana p t states he smokes regularly.He inquires about medical cannabis certification. No other concerns today. low back pain Onset: gradual w ithout injury. Severity level is 9. Duration: chronic. The problem is fluctuating. It occurs persistently. Location of pain is lower back. Pain is radiated to the bilateral lower extremities.The patient describes the pain as an ache, burning and shooting. Symptoms are aggravated by ascending stairs, bending, descending stairs, lifting, lying/rest, sitting, standing, twisting, walking, laying on stomach, housework and movement. Symptoms are relieved by heat, ice, pain meds/drugs and rest. Functional Status Date Functional Assessmen t No Information Instructions Date Instruction Additional Infor mation Lifestyle education regarding di et Related to Body mass index [BMI] 33.0-33.9, adult Lifestyle education regarding di et Related to Body mass index [BMI] 33.0-33.9, adult Lifestyle education regarding di et Related to Body mass index [BMI] 34.0-34.9, adult Assessments Type Assessment Date No Information Patient Care Teams Name Effective Dates (start - stop) Status Members No Information
--- OUTSIDE RECORDS SUMMARY | 2025-03-26 12:44 | XMS_ITS | Continuity of Care Document ---
Author Organization [facility] enter Address [address] [place] [address] [address] Phone Care Team Providers Care Gravity Prospecting Operator Helper Name Role Phone [facility] Unavailable Unava ilable Procedures Procedure Date RF Lumbar Or Sacral Single Level 2024 RF Lumbar Or Sacral Single Level 2024 RF Lumbar Sacral 2nd Level RF Lumbar Sacral 2nd Level Facet Inj Lumbar Facet Inj Lumbar Facet Inj Lumbar 2nd Lvl Facet Inj Lumbar 2nd Lvl Removal of spinal neurostimulator REVISE/REMOVE NEURORECEIVER IMPLANT NEUROELECTRODES INSRT/REDO SPINE N GENERATOR Inj, bupivacaine liposome IMPLANT NEUROELECTRODES No Charge For Visit Per Prov No Charge For Visit Per Prov IMPLANT NEUROELECTRODES IMPLANT NEUROELECTRODES Advance Directives Directive Yes / No Effective Date File Name No Information Encounters Encounter Description Practice Location Reason(s) For Visit Diagnoses Date Provider Providers Copied on Encounter [facility], [address] [place] [address], [id number], tel:[phone] [facility] No Information [facility]. [address] [place] [address], [id number], [place]. tel:[phone] Referring Provider: Gil Rinaldi, [address] [place], [address] . tel:[phone] [facility], [address] [place] [address], [id number], tel:[phone] [place] [address] No Information 5 [facility]. [address] [place] [address], [id number], [place]. tel:[phone] Referring Provider: Ian Arredondo, [address] [place], [place] [address], [place], [address] . tel:[phone] [facility], [address] [place] [address], [id number], tel:[phone] [place] [address] No Information 3 [facility]. [address] [place] [address], [id number], [place]. tel:[phone] Referring Provider: Julita Fiore, [address] [place], [address] . tel:[phone] [facility], [address] [place] [address], [id number], [place] tel:[phone] [place] [address] No Information 2 [facility]. [address] [place] [address], [id number], [place]. tel:[phone] Referring Provider: Nicholas Varela, [address] [facility] [address], [place], [address]. tel:[phone] [facility], [address] [place] [address], [id number], [place] tel:[phone] [place] [address] No Information 2 [facility]. [address] [place] [address], [id number], [place]. tel:[phone] Referring Provider: Nicholas Varela [employer] [address], [place], [address]. tel:[phone] [facility], [address] [place] [address], [id number], tel:[phone] [facility] No Information 2 [facility]. [address] [place] [address], [id number], . tel:[phone] Referring Provider: Nicholas Varela [email or web address] [address] [facility] [address], [place], [address]. tel:[phone] [facility], [address] [place] [address], [id number], tel:[phone] [facility] No Information 2 [facility]. [address] [place] [address], [id number], . tel:[phone] Referring Provider: Nicholas Varela [email or web address] [address] [facility] [address], [place], [address]. tel:[phone] Family History Family Member Type Diagnosis Age At Onset No Information Payers Payer name Insurance type Covered democrat ID Authorcherria ticorina(s) AARP MedicareComplete Replacement [id number] [facility] [id number] Social History Type Description Quantity Date Captured Comments Sex Male Smoking Status No Information Chief Complaint And Reason For Visit No Information Reason For Referral Reason For Referral No Information History Of Present Illness Encounter Date Complaint History Of Prese nt Illness No Information Functional Status Date Functional Assessmen t No Information Instructions Date Instruction Additional Infor mation No Information Assessments Type Assessment Date No Information Patient Care Teams Name Effective Dates (start - stop) Status Members No Information
--- OUTSIDE RECORDS SUMMARY | 2025-03-26 12:45 | XMS_ITS | Continuity of Care Document ---
Author Organization [facility] Address [address] [place] [address] Care Team Providers Care Machinist Brake Name Role Phone Efrem Dunham CRNA Unavailable Unavailable Procedures Procedure Date Percutaneous Image guided neuromodulatio n or intra ANESTH, HEAD/NECK/PTRUNK Advance Directives Directive Yes / No Effective Date File Name No Information Encounters Encounter Description Practice Location Reason(s) For Visit Diagnoses Date Provider Providers Copied on Encounter [facility], [address] [place], [place], [id number], [facility] [place] No Information 3 Roly Topete. [address] [place], [place], [id number] , . tel:[phone] Referring Provider: Julita Fiore, [address] [place], [address] . tel:[phone] [facility], [address] [place], [place], [id number], [facility] [place] No Information [address] [place], [id number] , . [phone] Referring Provider: Nicholas Varela [address], [place], [address]. tel:[phone] Family History Family Member Type Diagnosis Age At Onset No Information Payers Payer name Insurance type Covered green party ID Terrie montes(s) [facility] [id number] Social History Type Description Quantity Date Captured [...]
--- OUTSIDE RECORDS SUMMARY | 2025-03-26 12:45 | XMS_ITS | CCD ---
Author Organization Unknown Care Team Providers Care President Celebrity Acquistion Name Role Phone [place], [place] Primary Care Provider Unava ilable Unavailable Chronic Care Management Unavaila ble Summary Purpose DataExchange Insurance Providers Payer name Policy type / Coverage type Covered green party ID Effective Begin Date Effective End Date [employer] Commercial [employer] [id number] Unknown Unkn own Family History Family History data not found Medication Administered No Medication Administered data Reason For Visit No Reason For Visit data
--- OUTSIDE RECORDS SUMMARY | 2025-03-26 12:45 | XMS_ITS | Clinical Summary ---
Author Organization [facility] Address [address] [place] [id number] Care Team Providers Care Tobacco Grower Name Role Phone Jacob Sin MD Primary Care Provider [phone] Allergies Active Allergy Reactions Criticality Noted Date Comments Lactase Diarrhea 03/18/2017 Penicillins Rash 03/29/2008 Medications aspirin (ECOTRIN) 81 mg enteric coated tablet Take 1 tablet by mouth once daily with a meal. 0 07/09/20 14 Active blood sugar diagnostic (ACCU-CHEK AHSAN PLUS TEST STRP) stripIndications: Controlled type 2 diabetes mellitus without complication, without long-term current use of insulin (HC) Dispense item covered by pt ins. E11.9 NIDDM type II - Test 1 time/day; include control solution and other supplies 100 Strip 5 09/22/20 19 Active vit C,C-Ko-tysfu-lute in-zeaxan (PRESERVISION AREDS-2) capsule Take 1 capsule by mouth 2 times daily. Active medication order composer Medical marijuana - prescribed by pain clinic 0 03/02/20 22 Active traMADoL (ULTRAM) 50 mg tabletIndications :Closed fracture of sacrum with routine healing, unspecified portion of sacrum, subsequent encounter,Injury of coccyx, initial encounter Take 1 Tablet (50 mg) by mouth every 6 hours if needed for Pain. 15 Tablet 12/02/19 23 Active naloxone (NARCAN) 0.4 mg/mL injection vialIndications:O pioid use Inject 1 mL (0.4 mg) intramuscular each time if needed for Patient Diff To Arouse or Resp Rate < 8 / min. Additional doses may be given every 2 to 3 minutes until emergency medical assistance arrives. 1 mL 02/04/20 23 Active magnesium 250 mg tab Take 1 Tablet (250 mg) by mouth once daily. 0 03/17/20 23 Active clotrimazole (LOTRIMIN) 1 % creamIndications: Thrush Apply topically to affected area(s) two times daily. To corners of the mouth. Use for 2 weeks. 45 g 1 02/18/20 24 Active semaglutide (OZEMPIC) 1 mg/dose (4 mg/3 mL) penIndications:Ty pe 2 diabetes mellitus with other circulatory complications (HC) Inject 1 mg subcutaneous once weekly. 9 mL 3 05/31/20 24 Active CPAPIndications:O SA (obstructive sleep apnea) CPAP machine for home use at pressure 8-20, choice of mask, length of need: 99 Months, frequency of use daily 07/03/20 24 Active blood-glucose meterIndications: Controlled type 2 diabetes mellitus without complication, without long-term current use of insulin (HC) Inject subcutaneous. Dispense meter covered by pts insurance. Please include all supplies and refills for a year. Accucheck worked well for him in the past. 1 Each 10/06/20 24 Active methocarbamoL 750 mg tabletIndications :Neck muscle spasm Take 1 Tablet (750 mg) by mouth 3 times daily if needed for Muscle Spasm. 30 Tablet 3 10/06/20 24 Active nadoloL (CORGARD) 80 mg tabletIndications :Cardiac arrest (HC),VT (ventricular tachycardia) (HC),ICD (implantable cardioverter-defi brillator) in place,Long QT interval Take 1 Tablet (80 mg) by mouth once daily. 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 100 g 2 01/03/20 25 Active clotrimazole (MYCELEX RASHAUN) 10 mg trocheIndications :Thrush Dissolve 1 Tablet (10 mg) in the mouth 5 times daily. For 14 days. 70 Tablet 01/16/20 25 Active tamsulosin 0.4 mg capsuleIndication s:BPH without urinary obstruction Take 1 Capsule (0.4 mg) by mouth once daily after a meal. 90 Capsule 3 01/16/20 Active nystatin powder (MYCOSTATIN) powderIndications :Skin candidiasis Apply 1 Strip topically to affected area(s) three times daily. 60 g 1 01/16/20 Active nitroglycerin (NITROSTAT) 0.4 mg sublingual tabletIndications :Atherosclerosis of [place] coronary artery of [place] heart without angina pectoris Place 1 Tablet (0.4 mg) under the tongue every 5 minutes if needed for Chest Pain. Up to 3 tablets in 15 minutes. 25 Tablet 2 01/16/20 Active lisinopriL (PRINIVIL; ZESTRIL) 20 mg tabletIndications :Hypertension, unspecified type Take 1 Tablet (20 mg) by mouth two times daily. 180 Tablet 3 01/16/20 Active isosorbide mononitrate (IMDUR) 30 mg extended release tablet 24 HourIndications:C oronary artery disease involving [place] coronary artery of [place] heart without angina pectoris Take 1 Tablet (30 mg) by mouth once daily. 90 Tablet 01/16/20 Active gabapentin (NEURONTIN) 300 mg capsuleIndication s:Bulging lumbar disc,Chronic left-sided low back pain with left-sided sciatica TAKE ONE CAPSULE BY MOUTH AT 8 AM AND 2PM AND 2 CAPSULES AT 8PM 360 Capsule 3 01/16/20 Active famotidine (PEPCID) 20 mg tabletIndications :Chronic GERD Take 2 Tablets (40 mg) by mouth once daily. 180 Tablet 4 01/16/20 Active dicyclomine (BENTYL) 20 mg tabletIndications :Other irritable bowel syndrome Take 1 Tablet (20 mg) by mouth two times daily before meals. As needed 90 Tablet 3 01/16/20 Active chlorthalidone (HYGROTON) 25 mg tabletIndications :Essential hypertension Take 0.5 Tablets (12.5 mg) by mouth once daily in the morning. TAKE 1/2 TABLET BY MOUTH ONCE DAILY (PLEASE SPLIT) 45 Tablet 3 01/16/20 Active atorvastatin (LIPITOR) 80 mg tabletIndications :Coronary artery disease involving [place] coronary artery of [place] heart without angina pectoris Take 1 Tablet (80 mg) by mouth at bedtime. 90 Tablet 3 02/25/20 25 Active amLODIPine (NORVASC) 5 mg tabletIndications :Essential hypertension Take 1 Tablet (5 mg) by mouth once daily. Take in the evening. 90 Tablet 3 01/16/20 25 Active albuterol HFA (Ventolin HFA) 90 mcg/actuation inhalerIndication s:Other emphysema (HC) Inhale 2 Puffs by mouth 4 times daily if needed for Shortness of Breath 1st choice. 1 Each 5 01/16/20 25 Active ARIPiprazole (ABILIFY) 15 mg tabletIndications :Major depressive disorder, recurrent episode, moderate (HC) Take 1 Tablet (15 mg) by mouth at bedtime. 30 Tablet 2 01/30/20 25 Active clonazePAM (KLONOPIN) 1 mg tabletIndications :PTSD (post-traumatic stress disorder),Insomni a, unspecified type TAKE ONE TABLET (1MG) BY MOUTH AT BEDTIME. MUST LAST 30 DAYS. 30 Tablet 2 01/30/20 25 Active hydrOXYzine HCL (ATARAX) 25 mg tabletIndications :Anxiety TAKE 1 TO 2 TABLETS BY MOUTH UP TO TWICE A DAY NEEDED FOR ANXIETY 120 Tablet 2 01/30/20 25 Active lithium carbonate (LITHOBID) 300 mg Controlled-Releas e tabletIndications :PTSD (post-traumatic stress disorder),Persona lity disorder (HC) Take 2 Tablets (600 mg) by mouth at bedtime. 60 Tablet 2 01/30/20 25 Active prazosin (MINIPRESS) 5 mg capsuleIndication s:Nightmares associated with chronic post-traumatic stress disorder Take 2 Capsules (10 mg) by mouth two times daily. 120 Capsule 2 01/30/20 25 Active sertraline (ZOLOFT) 100 mg tabletIndications :Major depressive disorder, recurrent episode, moderate (HC) Take 2 Tablets (200 mg) by mouth once daily in the morning. 60 Tablet 2 01/30/20 25 Active Active Problems Patient Care Coordination No te Formatting of this note migh t be different from the original. HF/Structural/Prevention Research Eligibility Review Date: 12/04/19 Upcoming Visit Location: [] [facility] [x] Outreach Age: 54 y.o. Insurance: [x] Medicare/equivalent [] Non-medicare [] Uncertain EF: 52 LVID: 6.4 Valve/Imaging: No moderate-severe disease Comments: PPM 10/17/19 HF: Etiology: [x] ICM [] NICM []Mixed [] Uncertain NYHA: Last HF Admit: Last RHC: proBNP: 199 Reduce LAP: No d/t recent PPM Alt Kevin: No d/t recent PPM Structural: DNQ Prevention: DNQ Problem Noted Date Diagnosed Date Other heart failure 05/31/2024 Claudication 12/02/2022 ICD (implantable cardioverter-defibrillator) in place 11/10/2022 Overview (11/10/2022): Because of this he can't have a MRI. VT (ventricular tachycardia) 10/19/2022 Controlled substance agreement signed 06/03/2022 Overview (06/03/2022): 05/12/22 Maite Castillo MD/psychiatry Type 2 diabetes mellitus wit h other circulatory complications 01/02/2022 Cardiac arrest 10/08/2019 Overview (10/17/2019): 10/17/2019 - Torsades on LINQ. ROSC after 1x AED shock KIANA 05/13/2009 AHI-49 03/10/2021 AHI-22 07/14/2019 PTSD (post-traumatic stress disorder) 02/07/2019 Essential hypertension 09/25/2018 Overview (02/14/2019): Noted admission [facility] 11/2007 Hypertensive Retinopathy was noted by eye doctor as of 07/2017. Controlled type 2 diabetes jammie mccloud without complication, without long-term current use of insulin 07/13/2018 Overview (10/08/2019): Well-managed with metformin only. HgbA1C 5.7 on 09/19/19. Major depressive disorder, recurrent episode, mo derate 06/17/2018 Overview (10/27/2019): + suicidal ideation, no plan PHQ-9 Score 25/27 on 02/07/19 Transitioning therapists d/t provider changing practice Cardiology does not want Sertraline above 50 mg daily due to QT prolonging effect due to his Torsades as of 10/2019. Glaucoma of both eyes 08/20/2017 Macular degeneration, wet 08/20/2017 DDD (degenerative disc disease), lumbar 08/12/20 17 Overview (09/22/2019): Lumbar MRI from [facility] dated 08/03/17 shows: Multilevel DDD and facet degeneration. L2-4 disc bulges with impingement on left L3 and left L4 nerve. Bulging lumbar disc - L3-4 L L3 and L4 impingeme nt 08/12/2017 Low back muscle spasm 07/21/2017 Overview (07/21/2017): He takes Tizanidine 4 mg, 1 tablet three times daily and notes relief in muscle spasm with this. Chronic left-sided low back pain with left-sided sciatica 11/18/2016 Overview (07/21/2017): He takes Tramadol 50 mg three times daily for relief of left sided low back pain and leg pain. He gets functional relief of his pain from this about 50% of the time. Benign non-nodular prostatic hyperplasia with lower urinary tract symptoms 04/08/2016 Pulmonary emphysema 04/08/2016 Overview (10/08/2019): +SOB with exertion Gastroesophageal reflux disease with esophagitis 02/20/2016 Overview (02/20/2016): EGD 01/2016 mild reflux, probable gastroparesis Coronary artery disease invo lving [place] coronary artery of [place] heart without angina pectoris 12/30/2015 Overview (08/14/2020): Stenting of second obtuse marginal branch of the circumflex artery in [place] in 2007. Right coronary artery is collateralized by [id number] collaterals. Stenting of mid left anterior descending artery 2014 at [facility] 10/09/19 CHAPARRITA to OM1, occluded RCA, patent LAD stent. Communicated with Dr. Vaughn and he recommends he be on Plavix at least until 09/2021. Jacob Sin MD signed electronically .................... 08/14/2020 Adenomatous colon polyp 09/20/2015 Overview (09/20/2015): Colonoscopy 08/2015 large polyp, additional laxatives next time, repeat in 3 years Social anxiety disorder 05/29/2015 Nightmares 12/11/2014 Anxiety state, unspecified 01/23/2014 Overview (10/08/2019): MARINO Score 18/21 on 02/07/19 Transitioning therapists d/t provider changing practice Insomnia 05/03/2013 Overview (10/08/2019): Can't afford Ambien. Takes 5 naps daily. -10/08/19 Vitamin d deficiency - 13.1 in March 2011 04/20/20 13 Drug abuse, in remission 08/04/2012 Pain medication agreement 03/04/2012 Overview (07/04/2014): Started on tramadol 50 mg 3 times a day. He should receive 90 tablets per month. He is on this for chronic low back pain. Unspecified personality disorder 08/12/2010 Overview (10/08/2019): Diagnosed prior to 2010 Mixed Hyperlipidemia with Normal Lpa-6 9 Overview (07/05/2014): -12/19/2013 Chol 179, TG 189, HDL 26, LDL 115 -03/15/2014 Chol 164, TG 439, HDL 25, Direct LDL 79 non fasting. -06/15/2014 Chol: 214,T,HDL: 26, LDL DIRECT: 119 Vascular disease 10/26/2008 Sedative, hypnotic or anxiolytic dependence, con tinuous 09/28/2008 Alcohol abuse 07/03/2008 Overview (01/16/2025): In Remission. Last drink was 2 months ago. Opioid type dependence, unspecified 07/03/2008 Resolved Problems Problem Noted Date Diagnosed Date Resolved Date Torsades de pointes 10/17/2019 09/05/20 21 Possible seizure 10/08/2019 09/05/2021 Overview (10/08/2019): Admitted 10/08/19 for seizure-like activity. Neurology work-up pending. Controlled substance agreement signed 10/12/2017 01/22/2022 Overview (10/12/2017): 09/01/17 signed .Angelica Mantilla DNP, BANKING REPRESENTATIVE, PULL UP HAND/psychiatry/hc Morbid obesity 04/24/2013 07/18/2019 Sleep apnea 06/05/2009 02/27/2021 Overview (10/08/2019): Scheduled for sleep study to reevaluate 10/10/2019. No current CPAP use. Encounters Date Type Department Care Team Description 03/26/2025 Nurse Triage [facility] [address] [place] [address] Jacob Sin MD Questions (COLOGUARD KIT); Blood In Stool 03/07/2025 11:00 AM CDT Office Visit [facility] [address] [place] [address] Kati Mary, [facility] Individual Therapy 03/07/2025 Travel 03/02/2025 Travel 02/28/2025 Refill [facility] [address] [place] [address] Roberto Tomlin MD Refill Request (cpap rx) 01/29/2025 9:45 AM CDT Office Visit [facility] [address] [place] [address] Maite Castillo MD Medication Management (Things are going good//Due for: Discus/ Eye Exam) 01/29/2025 Travel 01/24/2025 Refill [facility] [address] [place] [address] Maite Castillo MD Refill Request (Prazosin) 01/17/2025 Refill [facility] [address] [place] [address] Madeleine Pavon NP Refill Request (Eden Carbonate) 01/17/2025 Refill [facility] [address] [place] [address] Maite Castillo MD Refill Request (Sertraline) 01/16/2025 7:30 AM SURVEY ANALYST Office Visit [facility] [address] [facility] [place] [address] Jacob Sin MD Diabetes (Routine follow up); Mouth/Lip Problem (Concerns with possible thrush per Celso) 01/16/2025 Travel 01/03/2025 11:15 AM SURVEY ANALYST Office Visit [facility] [address] [place] [address] Adrian Vernon DPM Consult (Left foot, mass) 01/03/2025 7:30 AM SURVEY ANALYST Orders Only [facility] [address] [facility] [address] Lab, [place] [facility] 01/03/2025 Travel 01/02/2025 Orders Only [facility] Scanner 1 scan: (1-Ord) [facility], QUANTAFLO PAD TEST, 01/02/2025 from Last 3 Months Immunizations Immunization Administration Dates Next Due AMB Influenza, IIV3 (Age >=3 years)(Flu Clinic Only) 08/30/2009,09/10/2008 COVID-19 VACCINE SPIKEVAX (M ODERNA 50MCG/0.5ML) 12YO+ PFS 10/06/2024 COVID-19 vaccine (Pfizer-Bio NTech 30mcg/0.3mL) 12YO+ BIVALENT PF, MDV 10/19/2022 COVID-19 vaccine (Pfizer-Bio NTech 30mcg/0.3mL) 12YO+ SAUNDRA-SUCROSE PF, MDV 03/11/2022 COVID-19 vaccine (Pfizer-Bio NTech 30mcg/0.3mL) PF, MDV 09/01/2021,02/27/2021,02/06/2021 DTaP 07/13/2009 Hepatitis B (Adult) 01/09/2015,10/31/2014,2013 INFLUENZA, IIV3 PF (AGE >= 6 MO) 10/06/2024 Influenza A (H1N1), Inactivated 12/10/2009 Influenza A (H1N1), Inactiva breanne (Age >=3 Years) 12/10/2009 Influenza Virus, Unspecified 08/30/2009,09/10/20 08 Influenza, IIV3 (Age 6-35 mos) 09/17/2015,2012 Influenza, IIV3 (Age >=3 years) 11/02/2013,08/30,09/10/2008 Influenza, IIV4 11/18/2022,,08/21/2020,2018,08/27/2016,10/31/2014 Influenza, IIV4 (=>6mos) MDV 07/21/2017 Pneumococcal Conj 20-valent (Prevnar 20) 11/18/2022 Pneumococcal Poly,23-Valent (Pneumovax) 09/10/2008,09/10/2008 Tdap 08/27/2016,07/13/2009 Zoster (Shingrix-RZV, recombinant) 03/17/2023, Family History Medical History Relation Name Comments Heart Disease Father Diabetes Mother Heart Disease Mother CABG age 55 Relation Name Status Comments Father Alive Mother Alive Social History Tobacco Use Types Packs/Day Years Used Date Smoking Tobacco: Every Day Cigarettes 1 50.3 Started: 1974 Smokeless Tobacco: Never Tobacco Cessation:Ready to Q uit: No; Counseling Given: Yes Comments:Quit a few times on and off, longest was 1 year Alcohol Use Standard Drinks/Week Comments Not Currently 0 (1 standard drink = 0.6 oz pur e alcohol) PHQ-2 Answer Date Recorded PHQ-2 TOTAL SCORE 5 03/06/2025 [facility] - Occupational Stress Questionnaire Answer Date Recorded Feeling of Stress Very much 10/08/2019 Exercise Vital Sign Answer Date Recorde d Days of Exercise per Week 0 days 2018 Minutes of Exercise per Session Not on file 10/08/2019 Social Connections Answer Date Recorded Do you often feel lonely or isolated from those around you? 0 10/06/2024 Financial Resource Strain Answer Date R ecorded Difficulty of Paying Living Expenses 3 10/06/2024 Difficulty of Paying Living Expenses Not on file 10/06/2024 Food Insecurity Answer Date Recorded Do you worry your food will run out before you are able to buy more? 1 10/06/2024 Transportation Needs Answer Date Record ed Does lack of transportation keep you from medica l appointments? 1 10/06/2024 Does lack of transportation keep you from work, meetings or getting things that you need? 1 10/06/2024 Housing Stability Answer Date Recorded What is your housing situation today? 1 10/06/2024 Utilities Answer Date Recorded Do you have trouble paying f or utilities (for example, heat, electricity, water, phone)? 1 10/06/2024 Sex and Gender Information Value Date Recorded Sex Assigned at Not on file Legal Sex Male 5:27 AM SURVEY ANALYST Gender Identity Not on file Sexual Orientation Not on file Occupation Industry Job Start Date Job End Date disabled Not on file Not on file Not on file Obstetrics History Last Filed Vital Signs Vital Sign Reading Time Taken Comments Blood Pressure 114/72 01/29/2025 9:50 AM CDT Pulse 70 01/29/2025 9:50 AM CDT Temperature 36.8 C (98.3 F) 01/16/2025 7:29 AM SURVEY ANALYST Respiratory Rate 14 09/17/2020 2:40 PM CDT Oxygen Saturation 98% 01/16/2025 7:29 AM SURVEY ANALYST Inhaled Oxygen Concentration - - Weight 115.4 kg (254 lb 8 oz) 01/29/2025 9:50 AM CDT Height 182.9 cm (6') 11/20/2024 8:35 AM SURVEY ANALYST Body Mass Index 34.52 11/20/2024 8:35 AM SURVEY ANALYST Plan of Treatment Upcoming Encounters Date Type Department Care Team (Late st Contact Info) Description 04/02/2025 9:15 AM CDT Office Visit [facility] [address] [place] [id number] Kati Mary, PARTNER MARKETING INTERN [address] [place] [address] 04/03/2025 8:30 AM CDT Cardiac Device Check Replaced By [facility] [place] [facility] [address] [facility] [place] [phone] 04/17/2025 7:00 AM CDT Orders Only [facility] [address] [place] [address] Lab, [place] 04/20/2025 8:25 AM CDT Office Visit [facility] [address] [facility] [address] Jacob Sin MD [address] [facility] [place] [address] 05/02/2025 9:45 AM CDT Office Visit [facility] [address] [place] [address] Maite Castillo MD [address] [facility] [place] [address] Health Maintenance Due Date Last Done Comments Colonoscopy through age 75 09/17/2018 09/17/2015, RSV vaccine for adults or (1 - Risk 60-74 years 1-dose series) [address] (for lung CA) ag e 50-80 11/07/2025 11/07/2024, 11/08/2023, 11/06/2022, Additional history exists BMI (ht and wt on same day) for age 18+ 11/20/2025 11/20/2024, 12/02/2023, 08/04/2023, Additional history exists Depression screening for age 12+ 03/07/2026 03/07/2025, 03/06/2025, 02/28/2025, Additional history exists Tetanus booster 08/27/2026 08/27/2016, 05/22 (Completed outside of [facility]), 07/13/2009 Lipids for age 45-75 01/03/2030 01/03/2025, 05/31/2024, 05/31/2024, Additional history exists HIV for age 15-65 Completed 01/19/2012 Hepatitis C screening for ag e 18-79 Completed 01/19/2012 Tdap Completed 08/27/2016, 07/13/2009 Pneumococcal series for age 50+ Completed 11/18/2022, 09/10/2008, 09/10/2008 Zoster (shingles) series for age 50+ Completed 03/17/2023, 06/15/2022 COVID-19 vaccine series Completed 10/06/20, 10/19/2022, 03/11/2022, Additional history exists Influenza Vaccine Completed 10/06/2024, , 09/01/2021, Additional history exists Goals Goal Patient Goal Type Associated Problems Recent Progress Patient-Stated? Author BLOOD PRESSURE - MAINTAINS BP less than 140/90 Blood Pressure Zoie Grider MD Procedures Procedure Name Priority Date/Time Associated Diagnosis Comments DIRECT LDL ([facility] REFLEX ONLY) Routine 01/03/2025 7:31 AM SURVEY ANALYST HEMOGLOBIN A1C Routine 01/03/2025 7:31 AM SURVEY ANALYST Controlled type 2 diabetes mellitus without complication, without long-term current use of insulin (HC) BASIC METABOLIC PANEL Routine 01/03/2025 7:31 AM SURVEY ANALYST Controlled type 2 diabetes mellitus without complication, without long-term current use of insulin (HC) LIPID PANEL W REFLEX MEASURED LDL Routine 01/03/2025 7:31 AM SURVEY ANALYST Controlled type 2 diabetes mellitus without complication, without long-term current use of insulin (HC) HEMOGLOBIN A1C MONITORING (POCT) Routine 01/02/2025 Type 2 diabetes mellitus with other circulatory complications (HC) SCAN-DIAGNOSTIC REPORT 01/02/2025 12:[address] CHEST SCREENING LOW DOSE WO CONTRAST Routine 11/07/2024 8:40 AM SURVEY ANALYST Encounter for screening for lung cancer Smoker ANTI HIV 1/2 Routine 01/19/2012 10:22 AM SURVEY ANALYST Screen for STD (sexually transmitted disease) ANTI HCV Routine 01/19/2012 10:22 AM SURVEY ANALYST Screen for STD (sexually transmitted disease) from Last 3 Months or Most Recently Relevant to Health Maintenance Results * DIRECT LDL ([facility] REFLEX ONLY) (01/03/2025 7:31 AM SURVEY ANALYST) DIRECT LDL 68 <100 mg/dL [facility] Comment: Desirable range <100 mg/dL for primary prevention; <70 mg/dL for patients with CHD or diabetic patients with > or = 2 CHD risk factors. 01/03/2025 7:31 AM SURVEY ANALYST 01/03/2025 7:32 AM SURVEY ANALYST us Jacob Sin MD CHEMISTRY Final Resu lt Performing Organization Address City/[facility]/ZIP Co de Phone Number [facility] [address] [facility] [place] [address], [facility] [address] [facility] [facility] [place] [address] * (ABNORMAL) HEMOGLOBIN A1C (01/03/2025 7:31 AM SURVEY ANALYST) HEMOGLOBIN A1C 6.4(H) <5.7 % of total Hgb [facility] Comment: For someone without known diabetes, a hemoglobin A1c value between 5.7% and 6.4% is consistent with prediabetes and should be confirmed with a follow-up test. For someone with known diabetes, a value <7% indicates that their diabetes is well controlled. A1c targets should be individualized based on duration of diabetes, age, comorbid conditions, and other considerations. This assay result is consistent with an increased risk of diabetes. Currently, no consensus exists regarding use of hemoglobin A1c for diagnosis of diabetes for children. Blood BLOOD SPECIMEN / Unknown 01/03/2025 7:31 AM SURVEY ANALYST 01/03/2025 7:32 AM SURVEY ANALYST us Jacob Sin MD CHEMISTRY Final Resu lt [facility] [place] [facility] [address] [facility] [place] [address], [facility] [address] [facility] [place] [address] * (ABNORMAL) LIPID PANEL W REFLEX MEASURED LDL (01/03/2025 7:31 AM SURVEY ANALYST) CHOLESTEROL, TOTAL 164 <200 mg/dL [facility] HDL CHOLESTEROL 34(L) > OR = 40 mg/dL [facility] TRIGLYCERIDES 709(H) <150 mg/dL [facility] Comment: If a non-fasting specimen was collected, consider repeat triglyceride testing on a fasting specimen if clinically indicated. Freeman et al. J. of Clin. Lipidol. 2015;9:129-169. There is increased risk of pancreatitis when the triglyceride concentration is very high (> or = 500 mg/dL, especially if > or = 1000 mg/dL). Freeman et al. J. of Clin. Lipidol. 2015;9:129-169. LDL-CHOLESTEROL Ques t [facility] Comment: LDL cholesterol not calculated. Triglyceride levels greater than 400 mg/dL invalidate calculated LDL results. Reference range: <100 Desirable range <100 mg/dL for primary prevention; <70 mg/dL for patients with CHD or diabetic patients with > or = 2 CHD risk factors. LDL-C is now calculated using the Tata calculation, which is a validated novel method providing better accuracy than the Friedewald equation in the estimation of LDL-C. Jason ROLLINS et al. VALEROI. 2013;310(19): 2310-1751 (http://education.Taxify/faq/UZD760) CHOL/HDLC RATIO 4.8 <5.0 (calc) [facility]ara[facility] Morrissey NON HDL CHOLESTEROL 130(H) <130 mg/dL (calc) 2DucheDarshan Morrissey Comment: For patients with diabetes plus 1 major ASCVD risk factor, treating to a non-HDL-C goal of <100 mg/dL (LDL-C of <70 mg/dL) is considered a therapeutic option. Blood BLOOD SPECIMEN / Unknown 01/03/2025 7:31 AM SURVEY ANALYST 01/03/2025 7:32 AM SURVEY ANALYST us Jacob Sin MD CHEMISTRY Final Resu lt [facility] [address] [place] [address], [facility] [address] [place] [address] * (ABNORMAL) BASIC METABOLIC PANEL (01/03/2025 7:31 AM SURVEY ANALYST) Pathologist [facility] GLUCOSE 198(H) 65 - 99 mg/dL Trusera osuraj Alvaradoe Comment: Fasting reference interval For someone without known diabetes, a glucose value >125 mg/dL indicates that they may have diabetes and this should be confirmed with a follow-up test. UREA NITROGEN (BUN) 26(H) 7 - 25 mg/dL [facility] CREATININE 1.33 0.70 - 1.35 mg/dL [facility] EGFR 61 > OR = 60 mL/min/1.7 3m2 [facility] BUN/CREATININE RATIO 20 6 - 22 (calc) [facility] SODIUM 138 135 - 146 mmol/L [facility] POTASSIUM 3.5 3.5 - 5.3 mmol/L [facility] CHLORIDE 101 98 - 110 mmol/L [facility] CARBON DIOXIDE 28 20 - 32 mmol/L [facility] ELECTROLYTE BALANCE 9 7 - 17 mmol/L (calc) [facility] CALCIUM 8.9 8.6 - 10.3 mg/dL [facility] Blood BLOOD SPECIMEN / Unknown 01/03/2025 7:31 AM SURVEY ANALYST 01/03/2025 7:32 AM SURVEY ANALYST us Jacob Sin MD CHEMISTRY Final Resu lt [facility] [address] [place] [address], [place] [phone] [facility] [address] [place] [address] * SCAN-DIAGNOSTIC REPORT (01/02/2025 12:00 AM SURVEY ANALYST) us Scanner OTHER Final Result * HEMOGLOBIN A1C MONITORING (POCT) (01/02/2025) Pathologist [facility] HEMOGLOBIN A1C MONITORING (POCT) 5.7 <=6.4 % [facility] Blood BLOOD SPECIMEN / Unknown 01/02/2025 Non-Excellian Provider CHEMISTRY Final Res ult [facility] [address] [place] [address], * CT CHEST SCREENING LOW DOSE WO CONTRAST (11/07/2024 8:40 AM SURVEY ANALYST) Anatomical Region Laterality Modality Computed Tomogra phy Impressions 11/08/2024 11:50 AM SURVEY ANALYST No lung nodules or masses. Lung-RADS Category 1: Negative. Continue annual screening with low-dose chest CT in 12 months. Please note that all CT scans at this facility use dose modulation, iterative reconstruction and/or weight-based dosing when appropriate to reduce radiation dose to as low as reasonably achievable. Dictated by: Ari Rich MD @11/07/2024 10:49:37 AM/edwige Neuroradiologist Narrative 11/08/2024 11:50 AM SURVEY ANALYST For Patients: As a result of the Century Cures Act, medical imaging exams and procedure reports are released immediately into your electronic medical record. You may view this report before your referring provider. If you have questions, please contact your health care provider. CT CHEST SCREENING LOW-DOSE WITHOUT CONTRAST, 11/07/2024 INDICATION: Lung cancer screening. TECHNIQUE: Noncontrast CT images of the chest. COMPARISON: CT chest 11/08/2023. FINDINGS: Mild scarring/atelectasis in the lingula. No focal consolidation, pleural effusion or pneumothorax. Mild upper lobe predominant paraseptal and centrilobular emphysema. No pulmonary nodules. Heart size is normal. No pericardial effusion. Coronary artery atherosclerotic calcifications. Left chest wall pacing device with leads in the right atrium and right ventricle. No mediastinal or hilar lymphadenopathy. Limited images through the upper abdomen are unremarkable. Mild multilevel thoracic spondylosis. No aggressive osseous lesions. Jacob Sin MD CT Final Resu lt * ANTI HCV (01/19/2012 10:22 AM SURVEY ANALYST) ANTI HCV Non-reacti ve [facility] Blood specimen (specimen) BLOOD SPECIMEN / Unknown 01/19/2012 10:22 AM SURVEY ANALYST 01/19/2012 10:12 AM SURVEY ANALYST Elmer James MD SEND OUTS Final Resul t Performing Organization Address City/[facility] Co de Phone Number [facility] INTERNAL ZIP [address] [place] [id number] * ANTI HIV 1/2 (01/19/2012 10:22 AM SURVEY ANALYST) ANTI HIV 1/2 Non-reacti ve [facility] Blood specimen (specimen) BLOOD SPECIMEN / Unknown 01/19/2012 10:22 AM SURVEY ANALYST 01/19/2012 10:12 AM SURVEY ANALYST Elmer James MD SEND OUTS Final Resul t Performing Organization Address [facility] Co de Phone Number [facility] INTERNAL ZIP [phone] [address] from Last 3 Months or Most Recently Relevant to Health Maintenance Insurance MEDICARE PART A HB ONLY MEDICARE PART B HB ONLY [facility] CARE ATTN: [place] [address] MEDICARE PART A HB ONLY [facility] MR Advance Directives * Full Code (Latest Code Status on File) Date Activated Date Inactivated Comments 10/17/2019 4:54 PM 10/22/2019 2:48 PM * Full Code Date Activated Date Inactivated Comments 10/08/2019 11:23 AM 10/12/2019 4:36 PM * Full Code Date Activated Date Inactivated Comments 07/09/2014 8:34 AM 07/10/2014 11:59 AM Care Teams Tobacco Grower Relationship Specialty Start Date End Date Jacob Sin MD [address] [place] [address] PCP - General Family Practice 03/09/14
[2025-03-26 12:49] VITALS: BP 158/98; PULSE 70; RESP 24; TEMP 36.5; O2SAT 94; BMI 33.6
--- NOTE | 2025-03-26 13:36 | CRLHL7_ITS ---
For Patients: As a result of the Century Cures Act, medical imaging exams and procedure reports are released immediately into your electronic medical record. You may view this report before your referring provider. If you have questions, please contact your health care provider. INDICATION: Abdominal pain. Constipation. GI bleed. TECHNIQUE: CT abdomen and pelvis acquired without and with IV contrast per GI bleed protocol. Sagittal, coronal and maximum intensity projection reformatted images submitted for review. COMPARISON: None. FINDINGS: Lower chest: Unremarkable. Liver: Fatty change. No focal lesion. Spleen: Unremarkable. Pancreas: Unremarkable. Gallbladder and bile ducts: No calcified stones or biliary ductal dilatation. Kidneys: Unremarkable. Adrenal glands: Unremarkable. GI tract: No bowel obstruction or focal inflammatory change of the GI tract. Normal appendix. No foci of active bleeding evident in the GI tract. Fecal loading of the colon. No free air or free fluid. Lymph nodes: No pathologic lymphadenopathy. Vascular structures: Atherosclerotic disease. Multifocal irregular noncalcified plaque in the abdominal aorta. Mild aneurysmal dilatation of the distal aorta near the GERRY origin measures 3 cm. Celiac, superior mesenteric and inferior mesenteric arteries are patent. Pelvic Organs: Unremarkable. Bones: No acute or suspicious osseous abnormality. Degenerative changes spine and pelvis. IMPRESSION: 1. No CT evidence of active gastrointestinal tract bleed. 2. No bowel obstruction or acute inflammatory change of the GI tract. 3. Abdominal aortic aneurysm measures 3 cm. Dictated by Daren Garcia MD @ 03/26/2025 3:30:58 PM Please note that all CT scans at this facility use dose modulation, iterative reconstruction, and/or weight-based dosing when appropriate to reduce radiation dose to as low as reasonably achievable. Dictated by: Daren Garcia MD @ 03/26/2025 15:31:12 (Electronically Signed)
--- NOTE | 2025-03-26 13:36 | ED_ITS ---
HPI - General Adult General Date Seen: 03/26/25 Chief complaint: Unspecified Complaint, Adult Stated complaint: blood in stool Time Seen by Provider: 03/26/25 13:22 Source: patient Mode of arrival: ambulatory Limitations: no limitations History of Present Illness HPI narrative: Patient is a 60-year-old male presenting to the emergency department for concerns of constipation and bloody stools. States yesterday he was having a bowel movement he states it took about 90 minutes of pushing before he finally had the bowel movement. At that time he passed hard stool with some blood on it. States the bowl was pink tinged after this. Today he had another hard bowel movement and again had blood in his stool. Denies ever having blood in his stool before. Is having no further anal pain. Has not noticed any hemorrhoids. Does have diffuse abdominal pain. Also feels like his abdomen is distended. No previous abdominal surgeries. Denies having symptoms like this before. Has not had any nausea vomiting. Denies fevers, chills, chest pain, shortness of breath, weakness, numbness, lightheadedness, dizziness. Does feel fatigued. No other concerns noted. Related Data Home Medications ?Medication ?Instructions ?Recorded ?Confirmed clonazepam 1 mg tablet 1 mg PO QHS 01/22/23 03/26/25 amlodipine 5 mg tablet 5 mg PO QPM 03/26/25 03/26/25 aripiprazole 15 mg tablet 15 mg PO QPM 03/26/25 03/26/25 atorvastatin 80 mg tablet 80 mg PO QPM 03/26/25 03/26/25 chlorthalidone 25 mg tablet mg PO 03/26/25 famotidine 20 mg tablet mg PO 03/26/25 gabapentin 300 mg capsule mg PO 03/26/25 hydroxyzine HCl 25 mg tablet 25 - 50 mg PO PRN anxiety 03/26/25 isosorbide mononitrate 30 mg 30 mg PO DAILY 03/26/25 03/26/25 tablet,extended release 24 hr lisinopril 20 mg tablet 20 mg PO BID 03/26/25 03/26/25 lithium carbonate 300 mg mg PO 03/26/25 tablet,extended release methocarbamol 750 mg tablet 750 mg PO 3XD PRN muscle spasm 03/26/25 03/26/25 nadolol 80 mg tablet 80 mg PO DAILY 03/26/25 03/26/25 prazosin 5 mg capsule mg PO 03/26/25 semaglutide 1 mg/dose (4 mg/3 mL) 1 mg subcut 03/26/25 subcutaneous pen injector (Ozempic) sertraline 100 mg tablet mg PO 03/26/25 Allergies Allergy/AdvReac Type Severity Reaction Status Date / Time cephalexin Allergy Mild Rash Verified 03/26/25 12:56 penicillin V Allergy Mild Rash Verified 03/26/25 12:56 Review of Systems Status of ROS: Reports: 10 or more systems reviewed and unremarkable except as noted in History and below [facility] Social History Smoking Status: Current every day smoker Exam Narrative: Exam Narrative: Const: Well-nourished, Well-developed, in mild distress Eyes: PERRL, no conjunctival injection, and symmetrical lids HENT: Atraumatic external nose and ears. Moist mucous membranes. Neck: Symmetric, trachea midline, No thyromegaly. CVS: RRR, No murmurs or gallops. Peripheral pulses 2+ and equal in all extremities RESP: Unlabored respiratory effort. Clear to auscultation bilaterally. GI: Mild diffuse tenderness, no obvious distension, No rebound or guarding. MSK:Extremities w/o deformity, Normal Active ROM Skin: Warm, Dry. No rashes or lesions. Neuro: Normal Muscle tone, No focal neurological deficits. Psych: Awake, Alert, & Oriented x3. Appropriate mood and affect. Const: Vital Signs, click to edit/add: Vital Signs - 24 hr 03/26/25 12:49 Temperature 97.7 F Pulse Rate [Right Pulse Oximeter] 70 Respiratory Rate 24 Blood Pressure [Ri ght Upper Arm] 158/98 H Pulse Oximetry 94 Oxygen Delivery Me thod Room Air Course Vital Signs Vital signs: Initial Vital Signs Temperature 97.7 F 03/26/25 12:49 Temperature Source Temporal Artery Scan 03/26/25 12:49 Pulse Rate 70 03/26/25 12:49 Pulse Rhythm Regular 03/26/25 12:49 Pulse Strength 3+ Normal 03/26/25 12:49 Respiratory Rate 24 03/26/25 12:49 Blood Pressure 158/98 H 03/26/25 12:49 Blood Pressure Mean 118 H 03/26/25 12:49 Blood Pressure Position Sitting 03/26/25 12:49 Pulse Oximetry 94 03/26/25 12:49 Oxygen Delivery Method Room Air 03/26/25 12:49 Vital Signs Temperature 97.7 F 03/26/25 12:49 Pulse Rate 70 03/26/25 12:49 Respiratory Rate 24 03/26/25 12:49 Blood Pressure 158/98 H 03/26/25 12:49 Pulse Oximetry 94 03/26/25 12:49 Oxygen Delivery Method Room Air 03/26/25 12:49 Temperature 97.7 F 03/26/25 12:49 Pulse Rate 70 03/26/25 12:49 Respiratory Rate 24 03/26/25 12:49 Blood Pressure 158/98 H 03/26/25 12:49 Pulse Oximetry 94 03/26/25 12:49 Oxygen Delivery Method Room Air 03/26/25 12:49 Medical Decision Making MDM Narrative Medical decision making narrative: Patient is a 60-year-old male presenting for abdominal pain and a GI bleed. Based on his description this is likely from his constipation. Could be hemorrhoids. Will do a CT scan for better evaluation as he is also having diffuse abdominal pain. Pain is minimal at this time and does not feel like he needs any medications for it. He is also feeling fatigued. Will order CBC, CMP, viral swab and a fecal occult blood test. Lab work returned showing no concerning abnormalities. He has very mildly elevated AST and ALT. These can be trended outpatient. CT scan returned showing no acute concerning abnormalities. He does have a 3 cm AAA. This can also be follow-up outpatient. On my review of the CT there is some mext-ob-[id number] constipation. On my rectal exam I do not notice any hemorrhoids and there was a small amount of moderately firm stool in the rectal vault. No obvious blood noted on rectal exam. Stool occult was positive. Most likely the bleeding was caused by constipation. I do believe he is safe for discharge he is agreeable to this plan. Lab Data Labs: Lab Results 03/26/25 03/26/25 03/26/25 Range/Units 13:35 14:00 15:25 WBC 10.55 (4.50-11.00) K/uL RBC 5.03 (4.30-5.90) m/uL Hgb 15.2 (13.5-17.5) gm/dL Hct 44.6 (37.0-53.0) % MCV 89 (80-100) fL MCH 30 (26-34) pg MCHC 34 (32-36) gm/dL RDW Coeff of Carrington 13.3 (11.5-15.5) % Plt Count 158 (140-440) K/uL Neut % (Auto) 71.7 (42.0-72.0) % Lymph % (Auto) 20.4 (20-44) % [place] % (Auto) 5.4 (0.0-11.0) % Eos % (Auto) 1.8 (0.0-7.0) % Baso % (Auto) 0.4 (0.0-3.0) % Neut # (Auto) 7.57 H (1.7-7.0) K/uL Lymph # (Auto) 2.15 (0.90-2.90) K/uL [place] # (Auto) 0.60 (0.00-0.90) K/UL Eos # (Auto) 0.19 (0.00-0.50) K/uL Baso # (Auto) 0.04 (0.00-0.30) K/uL Abs Immat Gran (auto) 0.03 (0.00-0.30) K/uL Imm/Tot Granulo (auto) 0.3 % Sodium 143 (135-149) mmol/L Potassium 3.6 (3.6-5.1) mmol/L Chloride 103 (96-114) mmol/L Carbon Dioxide 32 (20-32) mmol/L Anion Gap 8 (7-15) mEq/L BUN 13 (7-30) mg/dL Creatinine 1.0 (0.5-1.5) mg/dL Estimated Creat Clear 87.67 Estimated GFR 86 ml/min Glucose 119 H (60-115) mg/dL Calcium 8.8 (8.4-10.6) mg/dL Total Bilirubin 0.7 (0.1-1.5) mg/dL AST 39 H (12-35) U/L ALT 62 H (4-50) U/L Alkaline Phosphatase 81 (40-150) U/L Total Protein 7.6 (6.0-8.3) g/dL Albumin 4.6 (3.3-5.0) g/dL Stool Occult Blood Positive (Negative) SARS-CoV-2 (PCR) Negative SARS-CoV-2 (Negative) Influenza Type A (PCR) Negative PCR FLU A (Negative) Influenza Type B (PCR) Negative PCR FLU B (Negative) RSV (PCR) Negative PCR RSV (Negative) POC Creatinine 1.1 (0.6-1.3) mg/dl Imaging Data CT scan abdomen and pelvis: Attestation: I have reviewed the pertinent imaging results. Radiologist's impression: 1. No CT evidence of active gastrointestinal tract bleed. 2. No bowel obstruction or acute inflammatory change of the GI tract. 3. Abdominal aortic aneurysm measures 3 cm. Dictated by Daren Garcia MD @ 03/26/2025 3:30:58 PM Please note that all CT scans at this facility use dose modulation, iterative reconstruction, and/or weight-based dosing when appropriate to reduce radiation dose to as low as reasonably achievable. Dictated by: Daren Garcia MD @ 03/26/2025 15:31:12 Discharge Plan Discharge Clinical Impression: Acute lower GI bleeding, Constipation Patient Disposition: Home, Self-Care Condition: Stable Instructions: Constipation (DC) Additional Instructions: I believe your symptoms are all related to constipation causing some internal hemorrhoids bleeding to the bleeding. Recommend taking MiraLax daily for the next week until he started having normal bowel movements. He can also use docusate and senna at the same time. These 3 medications all working different ways. If he continued to have issues with constipation follow-up with your primary care provider. Also you have a 3 cm abdominal aortic aneurysm. This typically requires repeat imaging every 12 months to make sure it is not enlarging. I recommend following up with the primary care provider about this within the next few weeks. You also have very mildly elevated liver function tests. This is likely a non his left lower issue but I do recommend following up with your primary care provider about these findings also so they can be trended outpatient Prescriptions: No Action clonazepam 1 mg tablet 1 mg PO QHS Patient Comments: TAKE ONE TABLET (1 MG) BY MOUTH AT BEDTIME (MUST LAST 30 DAYS) atorvastatin 80 mg tablet 80 mg PO QPM nadolol 80 mg tablet 80 mg PO DAILY lisinopril 20 mg tablet 20 mg PO BID isosorbide mononitrate 30 mg tablet extended release 24 hr 30 mg PO DAILY sertraline 100 mg tablet PO lithium carbonate 300 mg tablet extended release PO chlorthalidone 25 mg tablet PO amlodipine 5 mg tablet 5 mg PO QPM prazosin 5 mg capsule PO famotidine 20 mg tablet PO methocarbamol 750 mg tablet 750 mg PO 3XD PRN (Reason: muscle spasm) gabapentin 300 mg capsule PO hydroxyzine HCl 25 mg tablet 25 - 50 mg PO PRN (Reason: anxiety) aripiprazole 15 mg tablet 15 mg PO QPM Ozempic 1 mg/dose (4 mg/3 mL) pen injector 1 mg subcut Follow Up/Referrals: Jacob Sin MD [Primary Care Provider] - Stand Alone [facility]: [facility] Info Instructions
--- OUTSIDE RECORDS SUMMARY | 2025-03-26 13:45 | XMS_ITS | Continuity of Care Document ---
Author Organization [facility] lewis Address [address] [place] [address] Phone Care Team Providers Care Phlebotomy Services Technician Name Role Phone Will Gil ORTEGA Unavailable [...] 1/2 MUSCL Substance Interv 15-30mn OFFICE/OUTPATIENT VISIT, [facility] Advance Directives Directive Yes / No Effective Date File Name No Information Encounters Encounter Description Practice Location Reason(s) For Visit Diagnoses Date Provider Providers Copied on Encounter [facility], [address] [place] [address], [id number] , [place] tel:[phone] [facility] Spondylosis without myelopathy or radiculopathy, lumbar region 5 Bruce Cordero. [address] [place] [address], [id number], [place]. tel:[phone] Referring Provider: Gil Rinaldi, [address] [place] [address], [id number]. [phone] [facility], [address] [place] [address], [id number] , [place] tel:[phone] [facility] Spondylosis without myelopathy or radiculopathy, lumbar region 5 Arnulfo Sosa. [address], [address], [place], [place], [id number], [place]. tel:[phone] Referring Provider: Gil Rinaldi, [address] [place] [address], [id number]. [phone] [facility], [address] [place] [address], [id number] , [place] tel:[phone] [facility] Spondylosis without myelopathy or radiculopathy, lumbar region 5 Arnulfo Sosa. [address], [address], [place], [place], [id number], [place]. tel:[phone] [facility], [address] [place], [place], [id number] , [place] [phone] [facility] Spondylosis without myelopathy or radiculopathy, lumbar region Feb-0 5 Bruce Cordero. [address] [place], [place], [id number], [place]. tel:[phone] Referring Provider: Ian Arredondo, [address], [place], [address]. tel:[phone] OFFICE/OUTPAT IENT VISIT, [facility], [address] [place] [address], [id number] , [place] [phone] [facility] low back pain (chief complaint) Body mass index [BMI] 33.0-33.9, adultChronic pain syndromeBilatera l primary osteoarthritis of hipRadiculopathy , lumbar regionSpondylosi s without myelopathy or radiculopathy, lumbar regionMyalgia, other site 4 Arnulfo Sosa. [address], [address], [place], [place], [id number], [place]. tel:[phone] Referring Provider: Gil Rinaldi, [address] [place], [address]. tel:[phone] OFFICE VISIT, [facility] TELEMEDICINE [facility], [address] [place] [address], [id number] , [place] [phone] [facility] low back pain (chief complaint) Chronic pain syndromeBilatera l primary osteoarthritis of hipSpondylosis without myelopathy or radiculopathy, lumbar regionSpinal stenosis, lumbar region with neurogenic claudicationRadi culopathy, lumbar regionMyalgia, other siteLong term (current) use of opiate analgesicOther chcf (current) drug therapy Feb- 4 Summer Galicia [place], [address] [place] [address], [address], [place]. tel:[phone] Referring Provider: Gil Rinaldi, [address] [place] [address], [id number]. tel:[phone] OFFICE/OUTPAT IENT VISIT, [facility], [address] [place] [address], [id number] , tel:[phone] [facility] low back pain (chief complaint) Chronic pain syndromeBilatera l primary osteoarthritis of hipSpondylosis without myelopathy or radiculopathy, lumbar regionSpinal stenosis, lumbar region with neurogenic claudicationRadi culopathy, lumbar regionMyalgia, other siteLong term (current) use of opiate analgesicOther chcf (current) drug therapyEncounter for therapeutic drug level monitoring 4 [place], [address] [place], [place], [facility], . tel:[phone] Referring Provider: Gil Rinaldi, [address] [place] [address], [id number]. tel:[phone] OFFICE VISIT, [facility], [address] [place] [address], [id number] , [place] tel:[phone] [facility] low back pain (chief complaint) Chronic pain syndromeBilatera l primary osteoarthritis of hipSpondylosis without myelopathy or radiculopathy, lumbar regionSpinal stenosis, lumbar region with neurogenic claudicationRadi culopathy, lumbar regionMyalgia, other siteLong term (current) use of opiate analgesicOther terminal operations supervisor (current) drug therapy 4 Summer [place], [address] [place], [place], [facility], [place]. tel:[phone] OFFICE/OUTPAT IENT VISIT, [facility], [address] [place] [address], [id number] , [place] tel:[phone] [facility] low back pain (chief complaint) Chronic pain syndromeBilatera l primary osteoarthritis of hipSpondylosis without myelopathy or radiculopathy, lumbar regionSpinal stenosis, lumbar region with neurogenic claudicationRadi culopathy, lumbar regionMyalgia, other siteLong term (current) use of opiate analgesicOther terminal operations supervisor (current) drug therapy 4 Summer [place], [address] [place], [address], [place]. tel:[phone] PHONE E/M PHYS/QHP 21-30 MIN [facility], [address] [place] [address], [id number] , [place] [phone] [facility] low back pain (chief complaint) Chronic pain syndromeBilatera l primary osteoarthritis of hipSpondylosis without myelopathy or radiculopathy, lumbar regionSpinal stenosis, lumbar region with neurogenic claudicationRadi culopathy, lumbar regionMyalgia, other siteLong term (current) use of opiate analgesicOther terminal operations supervisor (current) drug therapy 4 [place], [address] [place], [address], [place]. tel:[phone] Referring Provider: Gil Rinaldi, [address] [place] [address], [address]. tel:[phone] OFFICE/OUTPAT IENT VISIT, EST [facility], [address] [place] [address], [id number] , [place] tel:[phone] [facility] low back pain (chief complaint) Chronic pain syndromeBilatera l primary osteoarthritis of hipSpondylosis without myelopathy or radiculopathy, lumbar regionSpinal stenosis, lumbar region with neurogenic claudicationRadi culopathy, lumbar regionMyalgia, other siteLong term (current) use of opiate analgesicEncount er for therapeutic drug level monitoringOther chcf (current) drug therapy 3 Summer [place], [address] [place], [address], [place]. tel:[phone] Referring Provider: Gil Rinaldi, [address] [place] [address], [address]. tel:[phone] [facility], [address] [place] [address], [id number] , [place] tel:[phone] [facility] No Information 0 3 Wheeler Gael. [place], [address] [place], [address], [place]. tel:[phone] OFFICE VISIT, EST TELEMEDICINE [facility], [address] [place] [address], [id number] , [place] tel:[phone] [facility] low back pain (chief complaint) Chronic pain syndromeBilatera l primary osteoarthritis of hipSpondylosis without myelopathy or radiculopathy, lumbar regionSpinal stenosis, lumbar region with neurogenic claudicationRadi culopathy, lumbar regionMyalgia, other siteLong term (current) use of opiate analgesic 3 Wheeler Gael. [place], [address] [place], [address], [place]. tel:[phone] OFFICE VISIT, EST TELEMEDICINE [facility], [address] [place] [address], [id number] , [place] tel:[phone] [facility] low back pain (chief complaint) Chronic pain syndromeBilatera l primary osteoarthritis of hipSpondylosis without myelopathy or radiculopathy, lumbar regionSpinal stenosis, lumbar region with neurogenic claudicationRadi culopathy, lumbar regionMyalgia, other siteLong term (current) use of opiate analgesic Aug-0 3 Wheeler Gael. [place], [address] [place], [address], [place]. tel:[phone] [facility], [address] [place] [address], [id number] , [place] tel:[phone] [facility] Radiculopathy, lumbar region Sep-2 3 Adebayo Cancino. [address] [place] [address], [id number], [place]. tel:[phone] Referring Provider: Julita Fiore, [address] [place] [address], [address]. tel:[phone] OFFICE VISIT, EST TELEMEDICINE [facility], [address] [place] [address], [id number] , [place] tel: [phone] [facility] low back pain (chief complaint) Chronic pain syndromeBilatera l primary osteoarthritis of hipSpondylosis without myelopathy or radiculopathy, lumbar regionSpinal stenosis, lumbar region with neurogenic claudicationRadi culopathy, lumbar regionMyalgia, other siteLong term (current) use of opiate analgesic Sep-0 3 Summer [place], [address] [place], [address], [place]. tel:[phone] Referring Provider: Gil Rinaldi, [address] [place], [address]. tel:[phone] [facility], [address] [place] [address], [id number] , [place] [phone] [facility] No Information 3 Summer Vela, [address] [place], [address], [place]. tel:[phone] Referring [facility]: [facility] [address] [place], [address]. tel:[phone] OFFICE/OUTPAT IENT VISIT, EST [facility], [address] [place] [address], [id number] , [place] [phone] [facility] low back pain (chief complaint) Chronic pain syndromeBilatera l primary osteoarthritis of hipSpondylosis without myelopathy or radiculopathy, lumbar regionSpinal stenosis, lumbar region with neurogenic claudicationRadi culopathy, lumbar regionMyalgia, other siteLong term (current) use of opiate analgesicEncount er for therapeutic drug level monitoring 3 Summer Vela, [address] [place], [address], [place]. tel:[phone] Referring Provider: Manjinder Rodas [facility] [address] [place], [address]. tel:[phone] OFFICE VISIT, EST TELEMEDICINE [facility], [address] [place] [address], [id number] , [place] [phone] [facility] low back pain (chief complaint) Chronic pain syndromeBilatera l primary osteoarthritis of hipSpondylosis without myelopathy or radiculopathy, lumbar regionSpinal stenosis, lumbar region with neurogenic claudicationRadi culopathy, lumbar regionMyalgia, other siteLong term (current) use of opiate analgesic May- 3 Summer Vela, [address] [place], [address], [place]. tel:[phone] Referring Provider: Gil Rinaldi, [address] [place] [address], [address]. tel:[phone] OFFICE VISIT, [facility], [address] [place] [address], [id number] , [place] [phone] [facility] low back pain (chief complaint) Chronic pain syndromeBilatera l primary osteoarthritis of hipSpondylosis without myelopathy or radiculopathy, lumbar regionSpinal stenosis, lumbar region with neurogenic claudicationRadi culopathy, lumbar regionMyalgia, other siteLong term (current) use of opiate analgesic 3 Summer Vela, [address] [place], [address], [place]. [phone] OFFICE/OUTPAT IENT VISIT, [facility], [address] [place] [address], [id number] , [place] tel:[phone] [facility] low back pain (chief complaint) Chronic pain syndromeBilatera l primary osteoarthritis of hipSpondylosis without myelopathy or radiculopathy, lumbar regionSpinal stenosis, lumbar region with neurogenic claudicationRadi culopathy, lumbar regionMyalgia, other siteLong term (current) use of opiate analgesicOther terminal operations supervisor (current) drug therapy 0 3 Summer Vela, [address] [place], [address], [place]. tel:[phone] Referring Provider: Manjinder Rodas, [facility] [address], [place], [address]. tel:[phone] [facility], [address] [place] [address], [id number] , [place] [phone] [facility] No Information May-0 - 3 Wheeler Gael. [place], [address] [place], [address], [place]. tel:[phone] OFFICE VISIT, EST TELEMEDICINE [facility], [address] [place] [address], [id number] , [place] tel:[phone] [facility] low back pain (chief complaint) Chronic pain syndromeSpondylo sis without myelopathy or radiculopathy, lumbar regionSpinal stenosis, lumbar region with neurogenic claudicationRadi culopathy, lumbar regionMyalgia, other siteLong term (current) use of opiate analgesicOther chcf (current) drug therapyBilateral primary osteoarthritis of hip Apr-0 - 3 Wheeler Gael. [place], [address] [place], [address], [place]. tel:[phone] Referring Provider: Gil Rinaldi, [address] [place] [address], [address]. tel:[phone] OFFICE VISIT, EST TELEMEDICINE [facility], [address] [place] [address], [id number] , [place] tel:[phone] [facility] low back pain (chief complaint) Chronic pain syndromeUnilater al primary osteoarthritis, right hipSpondylosis without myelopathy or radiculopathy, lumbar regionSpinal stenosis, lumbar region with neurogenic claudicationRadi culopathy, lumbar regionMyalgia, other siteLong term (current) use of opiate analgesicOther chcf (current) drug therapy Mar-0 - 3 Wheeler Gael. [place], [address] [place], [address], [place]. tel:[phone] Referring Provider: Gil Rinaldi, [address] [place] [address], [address]. tel:[phone] [facility], [address] [place] [address], [id number] , [place] tel: [phone] [facility] Radiculopathy, lumbar region Jan- 3 Summer [place], [address] [place], [address], [place]. tel:[phone] OFFICE/OUTPAT IENT VISIT, EST [facility], [address] [place] [address], [id number] , [place] tel: [phone] [facility] low back pain (chief complaint) Chronic pain syndromeUnilater al primary osteoarthritis, right hipSpondylosis without myelopathy or radiculopathy, lumbar regionSpinal stenosis, lumbar region with neurogenic claudicationRadi culopathy, lumbar regionMyalgia, other siteLong term (current) use of opiate analgesicOther terminal operations supervisor (current) drug therapyEncounter for therapeutic drug level monitoring 3 Bryn Jasmine. [address], [id number], [place]. tel:[phone] Referring Provider: Manjinder Rodas [facility] [address] [place], [address]. tel:[phone] [facility], [address] [place] [address], [id number] , [place] tel: [phone] [facility] No Information 3 Bryn Jasmine. [address], [id number], [place]. tel:[phone] Referring Provider: [facility]jinder [facility] [address] [place], [address]. tel:[phone] [facility], [address] [place] [address], [id number] , [place] tel:[phone] [facility] No Information 3 [place], [address] [place], [address], [place]. tel:[phone] OFFICE VISIT, EST TELEMEDICINE [facility], [address] [place] [address], [id number] , [place] tel:[phone] [facility] Back Pain (chief complaint) Chronic pain syndromeUnilater al primary osteoarthritis, right hipSpondylosis without myelopathy or radiculopathy, lumbar regionSpinal stenosis, lumbar region with neurogenic claudicationRadi culopathy, lumbar regionMyalgia, other siteLong term (current) use of opiate analgesicOther chcf (current) drug therapy 0- 3 Wheeler Gael. [place], [address] [place], [address], [place]. tel:[phone] Referring Provider: Gil Rinaldi, [address] [place] [address], [address]. [phone] OFFICE VISIT, EST TELEMEDICINE [facility], [address] [place] [address], [id number] , [place] tel:[phone] [facility] Back pain (chief complaint) Chronic pain syndromeSpondylo sis without myelopathy or radiculopathy, lumbar regionSpinal stenosis, lumbar region with neurogenic claudicationRadi culopathy, lumbar regionMyalgia, other siteLong term (current) use of opiate analgesicOther terminal operations supervisor (current) drug therapyUnilatera l primary osteoarthritis, right hip Oct-2 2- 2 Wheeler Gael. [place], [address] [place], [address], [place]. tel:[phone] [facility], [address] [place] [address], [id number] , [place] tel:[phone] [facility] Unilateral primary osteoarthritis, right hip Oct-0 7- 2 Wheeler Gael. [place], [address] [place], [address], [place]. tel:[phone] OFFICE/OUTPAT IENT VISIT, EST [facility], [address] [place] [address], [id number] , [place] tel:[phone] [facility] Back Pain (chief complaint) Chronic pain syndromeUnilater al primary osteoarthritis, right hipSpondylosis without myelopathy or radiculopathy, lumbar regionSpinal stenosis, lumbar region with neurogenic claudicationRadi culopathy, lumbar regionMyalgia, other siteLong term (current) use of opiate analgesicOther chcf (current) drug therapy 2 Summer [place]icia [place], [address] [place], [address], [place]. tel:[phone] Referring Provider: Manjinder Rodas, [facility] [address] [place], [address]. tel:[phone] OFFICE/OUTPAT IENT VISIT, [facility], [address] [place] [address], [id number] , [place] [phone] [facility] Radiculopathy, lumbar region 2 Bruce Cordero. [address] [place] [address], [id number], [place]. tel:[phone] Referring Provider: Gil Rinaldi, [address] [place] [address], [address]. tel:[phone] [facility], [address] [place] [address], [id number] , [place] [phone] [facility] No Information 2 Summer [place]icia [place], [address] [place], [address], [place]. tel:[phone] OFFICE/OUTPAT IENT VISIT, [facility], [address] [place] [address], [id number] , [place] [phone] [facility] Back Pain (chief complaint) Chronic pain syndromeUnilater al primary osteoarthritis, right hipSpondylosis without myelopathy or radiculopathy, lumbar regionSpinal stenosis, lumbar region with neurogenic claudicationRadi culopathy, lumbar regionMyalgia, other siteLong term (current) use of opiate analgesicOther chcf (current) drug therapyEncounter for therapeutic drug level monitoring 2 [place], [address] [place], [address], [place]. tel:[phone] Referring Provider: Manjinder Rodas [facility] [address] [place], [address]. tel:[phone] OFFICE/OUTPAT IENT VISIT, [facility], [address] [place] [address], [id number] , [place] [phone] [facility] Back pain (chief complaint) Unilateral primary osteoarthritis, right hipChronic pain syndromeSpondylo sis without myelopathy or radiculopathy, lumbar regionSpinal stenosis, lumbar region with neurogenic claudicationRadi culopathy, lumbar regionMyalgia, other siteLong term (current) use of opiate analgesicOther chcf (current) drug therapy Oct 2 Summer [place]ela, [address] [place], [address], [place]. tel:[phone] Referring Provider: Manjinder Rodas [facility] [address] [place], [address]. tel:[phone] OFFICE/OUTPAT IENT VISIT, [facility], [address] [place] [address], [id number] , [place] tel:[phone] [facility] Back Pain (chief complaint) Chronic pain syndromeUnilater al primary osteoarthritis, right hipSpondylosis without myelopathy or radiculopathy, lumbar regionSpinal stenosis, lumbar region with neurogenic claudicationRadi culopathy, lumbar regionMyalgia, other siteLong term (current) use of opiate analgesicOther chcf (current) drug therapy Sep-0 2 Summer Vela, [address] [place], [address], [place]. tel:[phone] Referring Provider: Manjinder Rodas [facility] [address] [place], [address]. tel:[phone] OFFICE/OUTPAT IENT VISIT, EST [facility], [address] [place], [place], [id number] , [place] tel:[phone] [facility] Back Pain (chief complaint) Radiculopathy, lumbar regionChronic pain syndromeUnilater al primary osteoarthritis, right hipSpondylosis without myelopathy or radiculopathy, lumbar regionSpinal stenosis, lumbar region with neurogenic claudicationMyal freya, other siteLong term (current) use of opiate analgesicOther chcf (current) drug therapy 2 Wheeler Gael. [place], [address] [place], [address], [place]. tel:[phone] Referring Provider: Manjinder Rodas [facility] [address] [place], [address]. tel:[phone] [facility], [address] [place], [place], [id number] , [place] tel:[phone] [facility] Radiculopathy, lumbar region 2 Wheeler Gael. [place], [address] [place], [address], [place]. tel:[phone] Referring Provider: Manjinder Rodas [facility] [address] [place], [address]. tel:[phone] OFFICE/OUTPAT IENT VISIT, [facility], [address] [place], [place], [id number] , [place] [phone] [facility] Back Pain (chief complaint) Chronic pain syndromeUnilater al primary osteoarthritis, right hipSpondylosis without myelopathy or radiculopathy, lumbar regionSpinal stenosis, lumbar region with neurogenic claudicationRadi culopathy, lumbar regionMyalgia, other siteOther chcf (current) drug therapyLong term (current) use of opiate analgesic 2 Wheeler Gael. [place], [address] [place], [address], [place]. tel:[phone] Referring Provider: Manjinder Rodas [facility] [address] [place], [address]. tel:[phone] [facility], [address] [place] [address], [id number] , [place] tel:[phone] [facility] Pain [facility] No Information 2 Wheeler Gael. [place], [address] [place], [address], [place]. tel:[phone] Referring Provider: Manjinder Rodas [facility] [address] [place], [address]. tel:[phone] [facility], [address] [place] [address], [id number] , [place] tel:[phone] [facility] Back Pain (chief complaint) Radiculopathy, lumbar region 2 Wheeler Gael. [place], [address] [place], [address], [place]. tel:[phone] Referring Provider: Manjinder Rodas [facility] [address] [place], [address]. tel:[phone] [facility], [address] [place] [address], [id number] , [place] tel:[phone] [facility] Radiculopathy, lumbar region 2 Varela Nicholas. [facility], [address], [place], [address], [place]. tel:[phone] Referring Provider: Manjinder Rodas [facility] [address] [place], [address]. tel:[phone] [facility], [address] [place] [address], [id number] , [place] tel:[phone] [facility] No Information 2 Varela Nicholas. [facility], [address], [place], [address], [place]. tel:[phone] Referring Provider: Manjinder Rodas [facility] [address] [facility], [place], [address]. tel:[phone] [facility] Pain [facility], [address] [place] [address], [id number] , [place] [phone] [facility] No Information 2 Avery Peterson. [facility], [address], [place], [address], [place]. tel:[phone] Referring Provider: Manjinder Rodas, [facility] [address] [facility], [place], [address]. tel:[phone] OFFICE VISIT, EST TELEMEDICINE [facility], [address] [place] [address], [id number] , [place] [phone] [facility] Spinal stenosis, lumbar region with neurogenic claudication 2 [facility], [address] [place], [address], [place]. tel:[phone] OFFICE VISIT, EST TELEMEDICINE [facility] Pain [facility], [address] [place] [address], [id number] , [place] tel:[phone] [facility] Pain [facility] low back pain (chief complaint) Chronic pain syndromeUnilater al primary osteoarthritis, right hipSpondylosis without myelopathy or radiculopathy, lumbar regionSpinal stenosis, lumbar region with neurogenic claudicationRadi culopathy, lumbar regionMyalgia, other siteOther terminal operations supervisor (current) drug therapy Feb-0 2 Wheeler [place], [address], [place], [address], [place]. tel:[phone] [facility], [address] [place] [address], [id number] , [place] [phone] [facility] Pain [facility] Radiculopathy, lumbar region Feb-2 2 Wheeler [place], [address] [place], [address], [place]. tel:[phone] Referring Provider: Manjinder Rodas, [facility] [address], [place], [address]. tel:[phone] [facility] Pain [facility], [address] [place] [address], [id number] , [place] [phone] [facility] Radiculopathy, lumbar region 2 Avery Peterson. [facility], [address], [place], [address], [place]. tel:[phone] Referring Provider: Manjinder Rodas, [facility] [address], [place], [address]. tel:[phone] [facility] Pain [facility], [address] [place] [address], [id number] , [place] tel:[phone] [facility] Pain [facility] lumbago (chief complaint) Spinal stenosis, lumbar region with neurogenic claudicationSpon dylosis without myelopathy or radiculopathy, lumbar regionRadiculopa thy, lumbar region 2 Darya Chapman. [address] [place], [place], [id number], [place]. tel:[phone] [facility], [address] [place] [address], [id number] , [place] tel:[phone] [facility] Pain [facility] No Information 2 Arely Alaniz. [address] [facility] [address], [place], [place], [id number], [place]. tel:[phone] Psych Dx Eval [facility], [address] [place] [address], [id number] , [place] tel:[phone] [facility] Pain [facility] Stormy Pain disorder with related psychological factorsBipolar disorderPost-tra umatic stress disorder 2 Ctaa Darling. [address] [place], [place], [id number], [place]. tel:[phone] [facility], [address] [place] [address], [id number] , [place] tel:[phone] [facility] Pain [facility] Chronic pain syndromeRadiculo carl, lumbar regionSpinal stenosis, lumbar region with neurogenic claudication 1 Arely Alaniz. [address] [facility] [address], [id number], [place]. tel:[phone] [facility] Pain [facility], [address] [place], [place], [id number] , [place] tel: [phone] [facility] Pain [facility] No Information 1 Arely Alaniz. [address] [facility] [address], [id number], [place]. tel:[phone] OFFICE/OUTPAT IENT VISIT, [facility] Pain [facility], [address] [place], [place], [id number] , [place] tel: [phone] [facility] Pain [facility] low back pain (chief complaint) Spondylosis without myelopathy or radiculopathy, lumbar regionOther terminal operations supervisor (current) drug therapyEncounter for therapeutic drug level monitoringChroni c pain syndromeUnilater al primary osteoarthritis, right hipEncounter for screening for other disorderMyalgia, other siteRadiculopath y, lumbar regionSpinal stenosis, lumbar region with neurogenic claudication 1 Arely Alaniz. [address] [facility] 11 [facility] [address], [place], [id number], [place]. tel:[phone] Referring Provider: Manjinder Rodas, [facility] [address] [facility], [place], [address]. tel:[phone] Family History Family Member Type Diagnosis Age At Onset No Information Payers Payer name Insurance type Covered alliance party ID Authoriza ticorina(s) [facility] MedicareComplete Replacement [id number] [facility] [id number] Social History Type Description Quantity Date Captured Comments Sex Male Smoking Status No Information Chief Complaint And Reason For Visit No Information Reason For Referral Reason For Referral No Information Plan Of Treatment Date Type Action Status Goal Medication Recon ciliation. Due on due Goal UDT. Due on due Goal Unhealthy drug u se screening. Due on due Goal AST (SGOT). Due on due Goal OARS. Due on due Goal Creatinine. Due on due Goal ALT (SGPT). Due on due Goal FIT. Due on due Goal Order Annual PT. Due on due Goal Weight. Due on d ue Goal Hepatitis C scre ening. Due on due Goal ROCKET ASSEMBLY OPERATOR Paperwork. Due on due Goal Height. Due on d ue Goal PHQ-9. Due on du e Goal Lipid panel. Due on due Goal Update Social Hi story. Due on due Goal Tobacco Use. Due on due Goal FIT-DNA. Due on due Goal CT-Colonography. Due on due Goal Zoster vaccine ( 1st). Due on due Goal Review Allergy L ist. Due on due Goal HEALTHCARE SCIENCE SPECIALIST Scanned. Due on due Goal HEALTHCARE SCIENCE SPECIALIST Scanned. Due on due Goal Order Annual PT. Due on due Goal Creatinine. Due on due Goal UDT. Due on due Goal ALT (SGPT). Due on due Goal OARS. Due on due Goal AST (SGOT). Due on due Goal ROCKET ASSEMBLY OPERATOR Paperwork. Due on due Goal PHQ-9. Due [...] Social Hi story. Due on due Goal Update Social Hi story. Due on due Goal Order Annual PT. Due on due Goal CT-Colonography. Due on due Goal ROCKET ASSEMBLY OPERATOR Paperwork. Due on due Goal Tobacco Use. Due on due Goal AST (SGOT). Due on due Goal Lipid panel. Due on due Goal Hepatitis C scre ening. Due on due Goal FIT. Due on due Goal HEALTHCARE SCIENCE SPECIALIST Scanned. Due on due Goal ALT (SGPT). [...] Goal Height. Due on d ue Goal Lifestyle educat ion regarding diet completed Goal Medication Recon ciliation. Due on due Goal Review Allergy L ist. Due on due Goal Creatinine. Due on due Goal FIT. Due on due Goal Update Social Hi story. Due on due Goal ROCKET ASSEMBLY OPERATOR Paperwork. Due on due Goal OARS. Due on due Goal Lipid panel. Due on due Goal Order Annual PT. Due on due Goal ALT (SGPT). Due on due Goal UDT. Due on due Goal AST (SGOT). Due on due Goal HEALTHCARE SCIENCE SPECIALIST Scanned. Due on due Goal Height. Due [...] due Goal Creatinine. Due on due Goal HEALTHCARE SCIENCE SPECIALIST Scanned. Due on due Goal Update Social [...] ue Goal FIT-DNA. Due on due Goal ROCKET ASSEMBLY OPERATOR Paperwork. Due on due Goal Unhealthy drug u se screening. Due on due Goal ALT (SGPT). Due on due Goal AST (SGOT). Due on due Goal Zoster vaccine ( 1st). Due on due Goal OARS. Due on due Goal PHQ-9. Due on du e Goal Tobacco Use. Due on due Goal Lifestyle educat ion regarding diet completed Goal OARS. Due on due Goal PHQ-9. Due on du e Goal HEALTHCARE SCIENCE SPECIALIST Scanned. Due on due Goal AST (SGOT). Due on due Goal Height. Due on d ue Goal ALT (SGPT). Due on due Goal CT-Colonography. Due on due Goal ROCKET ASSEMBLY OPERATOR Paperwork. Due on due Goal Order Annual [...] vaccine ( ). Due on due Goal Creatinine. Due on due Goal Weight. Due on d ue Goal Order Annual PT. Due on due Goal HEALTHCARE SCIENCE SPECIALIST Scanned. Due on due Goal Hepatitis C scre ening. Due on due Goal UDT. Due on due Goal PHQ-9. Due on du e Goal FIT-DNA. Due on due Goal Lipid panel. Due on due Goal ROCKET ASSEMBLY OPERATOR Paperwork. Due on due Goal OARS. Due [...] Goal AST (SGOT). Due on due Goal ROCKET ASSEMBLY OPERATOR Paperwork. Due on due Goal HEALTHCARE SCIENCE SPECIALIST Scanned. Due on due Goal PHQ-9. Due on du e Goal Tobacco Use. Due on due Goal Update Social Hi story. Due on due Goal Height. Due on d ue Goal Zoster vaccine ( 1st). Due on due Goal Order Annual PT. Due on due Goal HEALTHCARE SCIENCE SPECIALIST Scanned. Due on due Goal AST (SGOT). Due on due Goal Tobacco Use. Due on due Goal Height. Due on d ue Goal Update Social Hi story. Due on due Goal PHQ-9. Due on du e Goal Creatinine. Due on due Goal OARS. Due on due Goal Weight. Due on d ue Goal ROCKET ASSEMBLY OPERATOR Paperwork. Due on due Goal Lipid panel. [...] Goal ALT (SGPT). Due on due Goal Hepatitis C scre ening. Due on due Goal FIT. Due on due Goal Medication Recon ciliation. Due on due Goal FIT-DNA. Due on due Goal Review Allergy L ist. Due on due Goal Lipid panel. Due on 023 due Goal HEALTHCARE SCIENCE SPECIALIST Scanned. Due on 023 due Goal OARS. Due on due Goal Unhealthy drug u se screening. Due on due Goal ROCKET ASSEMBLY OPERATOR Paperwork. Due on due Goal AST (SGOT). [...] due Goal Creatinine. Due on due Goal Lifestyle educat ion regarding diet completed Goal AST (SGOT). Due on due Goal OARS. Due on due Goal PHQ-9. Due on du e Goal Zoster vaccine ( 1st). Due on due Goal Hepatitis C scre ening. Due on due Goal Unhealthy drug u se screening. Due on due Goal UDT. Due on due Goal Tobacco Use. Due on due Goal ROCKET ASSEMBLY OPERATOR Paperwork. Due on due Goal FIT. Due on due Goal ALT (SGPT). Due on due Goal Creatinine. Due on due Goal FIT-DNA. Due on due Goal Review Allergy L ist. Due on due Goal Weight. Due on d ue Goal Height. Due on d ue Goal Order Annual PT. Due on due Goal CT-Colonography. Due on due Goal Update Social Hi story. Due on due Goal HEALTHCARE SCIENCE SPECIALIST Scanned. Due on due Goal Medication Recon ciliation. Due on due Goal Lipid panel. Due on due Goal Tobacco Use. Due on due Goal FIT-DNA. Due on due Goal Medication Recon ciliation. Due on due Goal OARS. Due on due Goal AST (SGOT). Due on due Goal ALT (SGPT). Due on due Goal HEALTHCARE SCIENCE SPECIALIST Scanned. Due on due Goal Creatinine. Due on due Goal Lipid panel. Due on due Goal Zoster vaccine ( 1st). Due on due Goal PHQ-9. Due on du e Goal Update Social Hi story. Due on due Goal Weight. Due on d ue Goal Hepatitis C scre ening. Due on due Goal UDT. Due on due Goal ROCKET ASSEMBLY OPERATOR Paperwork. Due on due Goal Review Allergy L ist. Due on due Goal Order Annual PT. Due on due Goal FIT. Due on due Goal Unhealthy drug u se screening. Due on due Goal CT-Colonography. Due on due Goal Height. Due on d ue Goal OARS. Due on due Goal HEALTHCARE SCIENCE SPECIALIST Scanned. Due on due Goal ROCKET ASSEMBLY OPERATOR Paperwork. Due on due Goal AST (SGOT). [...] ue Goal UDT. Due on due Goal Unhealthy [...] due Goal FIT-DNA. Due on due Goal ROCKET ASSEMBLY OPERATOR Paperwork. Due on due Goal Unhealthy drug u se screening. Due on due Goal FIT. Due on due Goal CT-Colonography. Due on due Goal ALT (SGPT). Due on due Goal UDT. Due on due Goal Order Annual PT. Due on due Goal Creatinine. Due on due Goal OARS. Due on due Goal Review Allergy L ist. Due on due Goal HEALTHCARE SCIENCE SPECIALIST Scanned. Due on due Goal Tobacco Use. Due on due Goal Lipid panel. Due on due Goal AST (SGOT). Due on due Goal Order Annual PT. Due on due Goal HEALTHCARE SCIENCE SPECIALIST Scanned. Due on due Goal ROCKET ASSEMBLY OPERATOR Paperwork. Due on due Goal UDT. Due [...] ue Goal FIT-DNA. Due on due Goal Weight. Due on d ue Goal Medication Recon ciliation. Due on due Goal Unhealthy drug u se screening. Due on due Goal CT-Colonography. Due on due Goal Lipid panel. Due on due Goal OARS. Due on due Goal Zoster vaccine ( 1st). Due on due Goal CT-Colonography. Due on due Goal Unhealthy drug u se screening. Due on due Goal Tobacco Use. Due on due Goal UDT. Due on due Goal Weight. Due on d ue Goal Review Allergy L ist. Due on due Goal FIT. Due on due Goal ROCKET ASSEMBLY OPERATOR Paperwork. Due on due Goal PHQ-9. Due [...] C scre ening. Due on due Goal HEALTHCARE SCIENCE SPECIALIST Scanned. Due on due Goal AST (SGOT). Due on due Goal Medication Recon ciliation. Due on due Goal Unhealthy drug u se screening. Due on due Goal ROCKET ASSEMBLY OPERATOR Paperwork. Due on due Goal Review Allergy L ist. Due on due Goal HEALTHCARE SCIENCE SPECIALIST Scanned. Due on due Goal Weight. Due on [...] due Goal Creatinine. Due on due Goal ROCKET ASSEMBLY OPERATOR Paperwork. Due on due Goal UDT. Due on due Goal HEALTHCARE SCIENCE SPECIALIST Scanned. Due on due Goal PHQ-9. Due [...] Goal ALT (SGPT). Due on due Goal HEALTHCARE SCIENCE SPECIALIST Scanned. Due on due Goal Lipid panel. Due on due Goal Creatinine. Due on due Goal Zoster vaccine ( 1st). Due on due Goal ROCKET ASSEMBLY OPERATOR Paperwork. Due on due Goal Unhealthy drug [...] Allergy L ist. Due on due Goal ALT (SGPT). Due on due Goal Medication Recon ciliation. Due on due Goal Zoster vaccine ( 1st). Due on due Goal Order Annual PT. Due on due Goal ROCKET ASSEMBLY OPERATOR Paperwork. Due on due Goal FIT-DNA. Due on due Goal AST (SGOT). Due on due Goal OARS. Due on due Goal HEALTHCARE SCIENCE SPECIALIST Scanned. Due on 023 due Goal Weight. Due on d ue Goal Tobacco Use. Due on 023 due Goal UDT. Due on due Goal [...] u se screening. Due on due Goal Order Annual PT. Due on due Goal PHQ-9. Due on du e Goal UDT. Due on due Goal Lipid panel. Due on due Goal AST (SGOT). Due on due Goal Unhealthy drug u se screening. Due on due Goal ROCKET ASSEMBLY OPERATOR Paperwork. Due on due Goal Weight. Due on d ue Goal HEALTHCARE SCIENCE SPECIALIST Scanned. Due on due Goal Medication Recon [...] Allergy L ist. Due on due Goal Hepatitis C scre ening. Due on due Goal Tobacco Use. Due on due Goal Zoster vaccine ( ). Due on due Goal CT-Colonography. Due on due Goal Weight. Due on d ue Goal PHQ-9. Due on du e Goal OARS. Due on due Goal Unhealthy drug u se screening. Due on due Goal Height. Due on d ue Goal Medication Recon ciliation. Due on due Goal Update Social Hi story. Due on due Goal FIT-DNA. Due on due Goal ALT (SGPT). Due on due Goal ROCKET ASSEMBLY OPERATOR Paperwork. Due on due Goal Lipid panel. Due on due Goal AST (SGOT). Due on due Goal Order Annual PT. Due on due Goal Tobacco Use. Due on due Goal Zoster vaccine ( 1st). Due on due Goal UDT. Due on due Goal FIT. Due on due Goal HEALTHCARE SCIENCE SPECIALIST Scanned. Due on due Goal Hepatitis C scre ening. Due on due Goal Creatinine. Due on due Goal Review Allergy L ist. Due on due Goal ALT (SGPT). Due on due Goal HEALTHCARE SCIENCE SPECIALIST Scanned. Due on due Goal ROCKET ASSEMBLY OPERATOR Paperwork. Due on due Goal OARS. Due on due Goal UDT. Due on due Goal Creatinine. Due on due Goal Order Annual PT. Due on due Goal AST (SGOT). Due on due Goal CT-Colonography. Due on due Goal Lipid panel. Due on due Goal PHQ-9. Due on [...] Allergy L ist. Due on due Goal ROCKET ASSEMBLY OPERATOR Paperwork. Due on due Goal Weight. Due on d ue Goal Medication Recon ciliation. Due on due Goal AST (SGOT). Due on due Goal Creatinine. Due on due Goal OARS. Due on due Goal Hepatitis C scre ening. Due on due Goal Order Annual PT. Due on due Goal Tobacco Use. Due on 023 due Goal UDT. Due on due Goal ALT (SGPT). Due on due Goal FIT. Due on due Goal Lipid panel. Due on 023 due Goal Unhealthy drug u se screening. Due on due Goal Zoster vaccine ( ). Due on due Goal HEALTHCARE SCIENCE SPECIALIST Scanned. Due on 023 due Goal PHQ-9. Due on du e Goal Height. Due on d ue Goal CT-Colonography. Due on due Goal Zoster vaccine ( 1st). Due on due Goal Tobacco Use. Due on due Goal Height. Due on d ue Goal Unhealthy drug u se screening. Due on due Goal PHQ-9. Due on du e Goal Hepatitis C scre ening. Due on due Goal AST (SGOT). Due on due Goal Order Annual PT. Due on due Goal ROCKET ASSEMBLY OPERATOR Paperwork. Due on due Goal OARS. Due on due Goal Weight. Due on d ue Goal FIT-DNA. Due on due Goal Creatinine. Due on due Goal Update Social Hi story. Due on due Goal UDT. Due on due Goal Medication Recon ciliation. Due on due Goal HEALTHCARE SCIENCE SPECIALIST Scanned. Due on due Goal FIT. Due on due Goal Lipid panel. Due on due Goal ALT (SGPT). Due on due Goal Review Allergy L ist. Due on due Goal CT-Colonography. Due on due Goal OARS. Due on due Goal AST (SGOT). Due on due Goal UDT. Due on due Goal Order Annual PT. Due on due Goal Creatinine. Due on due Goal ROCKET ASSEMBLY OPERATOR Paperwork. Due on due Goal HEALTHCARE SCIENCE SPECIALIST Scanned. Due on due Goal Hepatitis C scre ening. Due on due Goal ALT (SGPT). Due on due Goal Unhealthy drug u [...] vaccine ( ). Due on due Goal CT-Colonography. Due on due Goal Medication Recon ciliation. Due on due Goal Order Annual PT. Due on due Goal Height. Due on d ue Goal UDT. Due on due Goal Zoster vaccine ( 1st). Due on due Goal Lipid panel. Due on due Goal PHQ-9. Due on du e Goal Hepatitis C scre ening. Due on due Goal OARS. Due on due Goal Creatinine. Due on due Goal ROCKET ASSEMBLY OPERATOR Paperwork. Due on due Goal AST (SGOT). Due on due Goal Weight. Due on d ue Goal Review Allergy L ist. Due on due Goal HEALTHCARE SCIENCE SPECIALIST Scanned. Due on due Goal ALT (SGPT). [...] due Goal Creatinine. Due on due Goal ROCKET ASSEMBLY OPERATOR Paperwork. Due on due Goal UDT. Due on due Goal HEALTHCARE SCIENCE SPECIALIST Scanned. Due on due Goal OARS. Due [...] due Goal CT-Colonography. Due on due Goal Unhealthy drug u [...] due Goal Creatinine. Due on due Goal ROCKET ASSEMBLY OPERATOR Paperwork. Due on due Goal Medication Recon ciliation. Due on due Goal Update Social Hi story. Due on due Goal AST (SGOT). Due on due Goal HEALTHCARE SCIENCE SPECIALIST Scanned. Due on due Goal ALT (SGPT). Due on due Goal Order Annual PT. Due on due Goal Hepatitis C scre ening. Due on due Goal HEALTHCARE SCIENCE SPECIALIST Scanned. Due on due Goal Medication Recon ciliation. Due on due Goal ROCKET ASSEMBLY OPERATOR Paperwork. Due on due Goal UDT. Due [...] ue Goal FIT. Due on due Goal Creatinine. Due on due Goal Hepatitis C scre ening. Due on due Goal CT-Colonography. Due on due Goal UDT. Due on due Goal Medication Recon ciliation. Due on due Goal ROCKET ASSEMBLY OPERATOR Paperwork. Due on due Goal HEALTHCARE SCIENCE SPECIALIST Scanned. Due on due Goal Height. Due [...] vaccine ( 1st). Due on due Goal FIT. Due on [...] due Goal CT-Colonography. Due on due Goal ROCKET ASSEMBLY OPERATOR Paperwork. Due on due Goal HEALTHCARE SCIENCE SPECIALIST Scanned. Due on due Goal Medication Recon ciliation. Due on due Goal Hepatitis C scre ening. Due on due Goal Weight. Due on d ue Goal PHQ-9. Due on du e Goal ROCKET ASSEMBLY OPERATOR Paperwork. Due on due Goal Unhealthy drug u se screening. Due on due Goal Zoster vaccine ( ). Due on due Goal Creatinine. Due on [...] Allergy L ist. Due on due Goal HEALTHCARE SCIENCE SPECIALIST Scanned. Due on due Goal FIT-DNA. Due on due Goal HEALTHCARE SCIENCE SPECIALIST Scanned. Due on due Goal Order Annual PT. Due on due Goal Update Social Hi story. Due on due Goal ALT (SGPT). Due on due Goal OARS. Due on due Goal UDT. Due on due Goal AST (SGOT). Due on due Goal Creatinine. Due on due Goal ROCKET ASSEMBLY OPERATOR Paperwork. Due on due Goal PHQ-9. Due on du e Goal Hepatitis C scre ening. Due on due Goal FIT. Due on due Goal Unhealthy drug u se screening. Due on due Goal Weight. Due on d ue Goal CT-Colonography. Due on due Goal Tobacco Use. Due on due Goal Zoster vaccine ( ). Due on due Goal FIT-DNA. Due on due Goal Lipid panel. Due on due Goal Height. Due on d ue Goal Review Allergy L ist. Due on due Goal Medication Recon ciliation. Due on due Goal Update Social Hi story. Due on due Goal Zoster vaccine ( ). Due on due Goal HEALTHCARE SCIENCE SPECIALIST Scanned. Due on due Goal CT-Colonography. Due on due Goal Review Allergy L ist. Due on due Goal Unhealthy drug u se screening. Due on due Goal Weight. Due on d ue Goal ROCKET ASSEMBLY OPERATOR Paperwork. Due on due Goal PHQ-9. Due on du e Goal AST (SGOT). Due on due Goal Height. Due on d ue Goal ALT (SGPT). Due on due Goal OARS. Due on due Goal UDT. Due on due Goal Hepatitis C scre ening. Due on due Goal FIT. Due on due Goal Creatinine. Due on [...] vaccine ( ). Due on due Goal Lipid panel. Due [...] e Goal FIT-DNA. Due on due Goal Tobacco [...] ue Goal Tobacco cessation counseling completed Appointment [facility] BOOKED Future Order: Radiology Order MR I [...] Date Complaint History Of Prese nt Illness Comments: This i s my first evaluation [...] States he saw a surgeon, possibly at [facility], who recommended surgical intervention but patient does not want to move forward with that. No other concerns today. low back pain Severity level i s 10. Duration: chronic. The problem is worsening. The client describes the pain as burning and sharp. Symptoms are aggravated by bending, sitting, standing, walking, reaching overhead, housework and social activities. Symptoms are relieved by pain meds/drugs. Comments: Michelle carlisle is a 58 y/o [...] lower back and legs. low back pain Severity level i s [...] appointment. States he has 1-2 at home. 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 Was previously established with a scientific informatics analyst following his heart attack, but would like [...] lumbar MRI soon. Currently following with a scientific informatics analyst.Medication provides moderate relief and allows for increased functionality per patient intake. Denies side effects from current medication regimen. No other concerns today. low back pain Severity level i s 10. Duration: chronic. The problem is worsening. It occurs persistently. low back pain Severity level i s [...] meds/drugs, rest, sitting and changing positions. Comments: Michelle carlisle is a 58 y/o [...] the month. MRI has been faxed to [facility] but he has not scheduled yet.Medication provides moderate relief and allows for increased functionality per patient intake. Denies side effects from current medication regimen. Requests to be recertified for medical cannabis, utilizing the tabs to help him sleep. No other concerns today. Comments: Michelle carlisle is a 58 y/o who presents via [facility] for follow up and medication refill regarding [...] he still looks forward to the procedure. Sap Pi Developer has cleared him. Would like to update imaging after SCS explant. Device is currently off. His next plant science professor appointment is not scheduled until the end [...] SCS explant. Looks forward to the procedure. Sap Pi Developer has cleared him to move forward with the procedure if he'd like. Would like to update imaging after SCS explant.His next plant science professor appointment is not scheduled until the end [...] SCS explant. Looks forward to the procedure. Sap Pi Developer has cleared him to move forward with [...] to the procedure. Has to clear with plant science professor. Will f/u with cardiology 02/26/23 for testing.Medication provides 20% relief and allows for increased functionality per patient intake. Presents on track with prescribed medication. Denies side effects from current medication regimen. No other concerns today. low back pain Severity level i s 8. Duration: chronic. The problem is stable. It occurs persistently. Location of pain is lower back, legs and hips. low back pain Severity level i s 8. Duration: chronic. The problem is stable. It occurs persistently. Location of pain is lower back. Comments: Celso smith s a 57 y/o [...] medication regimen. No other concerns today. Comments: This i s my first evaluation [...] pain meds/drugs, rest, sitting and changing positions. Back Pain Duration: chroni c. The problem is stable. It occurs persistently. Location of pain is lower back. Comments: Celso carlisle resents for virtual follow [...] regimen. No other concerns today. Back pain Severity level i s 3. [...] and changing positions. Comments: Uzair presents for a follow up [...] today. Back Pain Severity level i s 10. [...] BL legs, referred by Dr. Rodas at [facility]. He prefers to go by [...] tried Last did PT years ago at [facility] Hydrocodone 7.5-325mg TID helps a little but [...]
--- OUTSIDE RECORDS SUMMARY | 2025-03-26 13:45 | XMS_ITS | Continuity of Care Document ---
Author Organization [facility] Address [address] [place] [address] Care Team Providers Care Senior Java Web Developer Name Role Phone Efrem Dunham CRNA Unavailable Unavailable Procedures Procedure Date Percutaneous Image guided neuromodulatio n or intra ANESTH, HEAD/NECK/PTRUNK Advance Directives Directive Yes / No Effective Date File Name No Information Encounters Encounter Description Practice Location Reason(s) For Visit Diagnoses Date Provider Providers Copied on Encounter [facility], [address], [place], [id number], [facility] No Information 3 Roly Topete. [address], [place], [id number] , . tel:[phone] Referring Provider: Julita Fiore, [address] [place], [address] . tel:[phone] [facility], [address], [place], [id number], [facility] No Information 2 Roly Topete. [address] [facility] [place], [id number] , . [phone] Referring Provider: Nicholas Varela [address], [place], [address]. tel:[phone] Family History Family Member Type Diagnosis Age At Onset No Information Payers Payer name Insurance type Covered democrat ID Terrie montes(s) [facility] [id number] Social History Type Description Quantity Date Captured [...]
--- OUTSIDE RECORDS SUMMARY | 2025-03-26 13:46 | XMS_ITS | CCD ---
Author Organization Unknown Care Team Providers Care Vinyl Dipper Name Role Phone Forging Dies Final Finisher, [place] Primary Care Provider Unava ilable Unavailable Chronic Care Management Unavaila ble Summary Purpose DataExchange Insurance Providers Payer name Policy type / Coverage type Covered democrat ID Effective Begin Date Effective End Date [employer] Commercial Insurance [id number] Unknown Unkn own Family History Family History data not found Medication Administered No Medication Administered data Reason For Visit No Reason For Visit data
--- OUTSIDE RECORDS SUMMARY | 2025-03-26 13:46 | XMS_ITS | Clinical Summary ---
Author Organization [facility] Address [address] [place] [address] Care Team Providers Care Binder Selector Name Role Phone Jacob Sin MD Primary Care Provider [phone] Allergies Active Allergy Reactions Criticality Noted Date [...] 100 Strip 5 09/22/20 19 Active vit C,K-Ht-eyllf-lute in-zeaxan (PRESERVISION AREDS-2) capsule Take 1 capsule [...] (NITROSTAT) 0.4 mg sublingual tabletIndications :Atherosclerosis of hopland coronary artery of hopland heart without angina pectoris Place 1 Tablet [...] tablet 24 HourIndications:C oronary artery disease involving hopland coronary artery of hopland heart without angina pectoris Take 1 Tablet [...] 80 mg tabletIndications :Coronary artery disease involving hopland coronary artery of hopland heart without angina pectoris Take 1 Tablet [...] Essential hypertension 09/25/2018 Overview (02/14/2019): Noted admission [facility] 11/2007 Hypertensive Retinopathy was noted by [...] probable gastroparesis Coronary artery disease invo lving hopland coronary artery of hopland heart without angina pectoris 12/30/2015 Overview (08/14/2020): Stenting of second obtuse marginal branch of the circumflex artery in [place] in 2007. Right coronary artery is collateralized by cdmv-fv-guuxi collaterals. Stenting of mid left anterior descending [...] Overview (10/12/2017): 09/01/17 signed .Angelica Mantilla DNP, ASSOCIATE APPLICATION DEVELOPER, PUBLICATIONS MANAGER/psychiatry/hc Morbid obesity 04/24/2013 07/18/2019 Sleep apnea 06/05/2009 02/27/2021 Overview (10/08/2019): Scheduled for sleep study to reevaluate 10/10/2019. No current CPAP use. Encounters Date Type Department Care Team Description 03/26/2025 Nurse Triage [facility] [address] [place] [address] Jacob Sin MD Questions (COLOGUARD KIT); Blood In Stool 03/07/2025 11:00 AM CDT Office Visit [facility] [address] [place] [address] Kati Mary, [facility] Individual Therapy 03/07/2025 Travel 03/02/2025 Travel 02/28/2025 Refill [facility] [address] [place] [address] Roberto Tomlin MD Refill Request (cpap rx) 01/29/2025 9:45 AM CDT Office Visit [facility] [address] [place] [address] Maite Castillo MD Medication Management (Things are going good//Due for: Discus/ Eye Exam) 01/29/2025 Travel 01/24/2025 Refill [facility] [address] [place] [address] Maite Castillo MD Refill Request (Prazosin) 01/17/2025 Refill [facility] [address] [place] [address] Madeleine Pavon NP Refill Request ([place] Carbonate) 01/17/2025 Refill [facility] [address] [place] [address] Maite Castillo MD Refill Request (Sertraline) 01/16/2025 7:30 AM TELETYPE TELEGRAPHER Office Visit [facility] [address] [facility] [place] [address] Jacob Sin MD Diabetes (Routine follow up); Mouth/Lip Problem (Concerns with possible thrush per Celso) 01/16/2025 Travel 01/03/2025 11:15 AM TELETYPE TELEGRAPHER Office Visit [facility] [address] [place] [address] Adrian Vernon DPM Consult (Left foot, mass) 01/03/2025 7:30 AM TELETYPE TELEGRAPHER Orders Only [facility] [address] [facility] [address] Lab, [place] Lab 01/03/2025 Travel 01/02/2025 Orders Only [facility] Scanner 1 scan: (1-Ord) [...] Date Recorded PHQ-2 TOTAL SCORE 5 03/06/2025 [facility] - [...] on file Legal Sex Male 5:27 AM TELETYPE TELEGRAPHER Gender Identity Not on file Sexual Orientation Not on file Occupation Industry Job Start Date Job End Date disabled Not on file Not on file Not on file Obstetrics History Last Filed Vital Signs Vital Sign Reading Time Taken Comments Blood Pressure 114/72 01/29/2025 9:50 AM CDT Pulse 70 01/29/2025 9:50 AM CDT Temperature 36.8 C (98.3 F) 01/16/2025 7:29 AM TELETYPE TELEGRAPHER Respiratory Rate 14 09/17/2020 2:40 PM CDT Oxygen Saturation 98% 01/16/2025 7:29 AM TELETYPE TELEGRAPHER Inhaled Oxygen Concentration - - Weight 115.4 kg (254 lb 8 oz) 01/29/2025 9:50 AM CDT Height 182.9 cm (6') 11/20/2024 8:35 AM TELETYPE TELEGRAPHER Body Mass Index 34.52 11/20/2024 8:35 AM TELETYPE TELEGRAPHER Plan of Treatment Upcoming Encounters Date Type Department Care Team (Late st Contact Info) Description 04/02/2025 9:15 AM CDT Office Visit [facility] [address] [place] [phone] Kati Mary, SEISMOGRAPH RECORDER [address] [place] [address] 04/03/2025 8:30 AM CDT Cardiac Device Check [facility] [address] [facility] [place] [address] 04/17/2025 7:00 AM CDT Orders Only [facility] [address] [place] [address] Lab, [place] 04/20/2025 8:25 AM CDT Office Visit [facility] [address] [facility] [address] Jacob Sin MD [address] [facility] [place] [address] 05/02/2025 9:45 AM CDT Office Visit [facility] [address] [place] [address] Maite Castillo MD [address] [facility] [address] Health Maintenance Due Date Last Done Comments [...] booster 08/27/2026 08/27/2016, 05/22 (Completed outside of [facility]), 07/13/2009 Lipids for age 45-75 01/03/2030 01/03/2025, [...] ([facility] REFLEX ONLY) Routine 01/03/2025 7:31 AM TELETYPE TELEGRAPHER HEMOGLOBIN A1C Routine 01/03/2025 7:31 AM TELETYPE TELEGRAPHER Controlled type 2 diabetes mellitus without complication, without long-term current use of insulin (HC) BASIC METABOLIC PANEL Routine 01/03/2025 7:31 AM TELETYPE TELEGRAPHER Controlled type 2 diabetes mellitus without complication, without long-term current use of insulin (HC) LIPID PANEL W REFLEX MEASURED LDL Routine 01/03/2025 7:31 AM TELETYPE TELEGRAPHER Controlled type 2 diabetes mellitus without complication, without long-term current use of insulin (HC) HEMOGLOBIN A1C MONITORING (POCT) Routine 01/02/2025 Type 2 diabetes mellitus with other circulatory complications (HC) SCAN-DIAGNOSTIC REPORT 01/02/2025 12:[address] CHEST SCREENING LOW DOSE WO CONTRAST Routine 11/07/2024 8:40 AM TELETYPE TELEGRAPHER Encounter for screening for lung cancer Smoker ANTI HIV 1/2 Routine 01/19/2012 10:22 AM TELETYPE TELEGRAPHER Screen for STD (sexually transmitted disease) ANTI HCV Routine 01/19/2012 10:22 AM TELETYPE TELEGRAPHER Screen for STD (sexually transmitted disease) from Last 3 Months or Most Recently Relevant to Health Maintenance Results * DIRECT LDL ([facility] REFLEX ONLY) (01/03/2025 7:31 AM TELETYPE TELEGRAPHER) DIRECT LDL 68 <100 mg/dL [facility] Comment: Desirable range <100 mg/dL for primary prevention; <70 mg/dL for patients with CHD or diabetic patients with > or = 2 CHD risk factors. 01/03/2025 7:31 AM TELETYPE TELEGRAPHER 01/03/2025 7:32 AM TELETYPE TELEGRAPHER us Jacob Sin MD CHEMISTRY Final Resu lt Performing Organization Address City/[facility]/ZIP Co de Phone Number [facility] [address] [facility] [place] [place] [address], [facility] [address] [facility] [place] [address] * (ABNORMAL) HEMOGLOBIN A1C (01/03/2025 7:31 AM TELETYPE TELEGRAPHER) HEMOGLOBIN A1C 6.4(H) <5.7 % of total [...] BLOOD SPECIMEN / Unknown 01/03/2025 7:31 AM TELETYPE TELEGRAPHER 01/03/2025 7:32 AM TELETYPE TELEGRAPHER us Jacob Sin MD CHEMISTRY Final Resu lt [facility] [place] [facility] [address] [place] [address], [facility] [address] [facility] [place] [address] * (ABNORMAL) LIPID PANEL W REFLEX MEASURED LDL (01/03/2025 7:31 AM TELETYPE TELEGRAPHER) CHOLESTEROL, TOTAL 164 <200 mg/dL [facility] HDL CHOLESTEROL 34(L) > OR = 40 mg/dL [facility] TRIGLYCERIDES 709(H) <150 mg/dL [facility] Comment: If a non-fasting specimen [...] of Clin. Lipidol. 2015;9:129-169. LDL-CHOLESTEROL Ques t [facility] Comment: LDL cholesterol not calculated. [...] estimation of LDL-C. Jason ROLLINS et al. VALERIO. 2013;310(19): 8634-1476 (http://education.[employer]/faq/PTV815) CHOL/HDLC RATIO 4.8 <5.0 (calc) [facility] NON HDL CHOLESTEROL 130(H) <130 mg/dL (calc) [facility] Comment: For patients with diabetes plus 1 major ASCVD risk factor, treating to a non-HDL-C goal of <100 mg/dL (LDL-C of <70 mg/dL) is considered a therapeutic option. Blood BLOOD SPECIMEN / Unknown 01/03/2025 7:31 AM TELETYPE TELEGRAPHER 01/03/2025 7:32 AM TELETYPE TELEGRAPHER us Jacob Sin MD CHEMISTRY Final Resu lt [facility] [address] [place] [address], [facility] [place] [address] [place] [address] * (ABNORMAL) BASIC METABOLIC PANEL (01/03/2025 7:31 AM TELETYPE TELEGRAPHER) Pathologist [facility] GLUCOSE 198(H) 65 - 99 mg/dL [facility] Comment: Fasting reference interval For someone without known diabetes, a glucose value >125 mg/dL indicates that they may have diabetes and this should be confirmed with a follow-up test. UREA NITROGEN (BUN) 26(H) 7 - 25 mg/dL [facility] CREATININE 1.33 0.70 - 1.35 mg/dL [facility] EGFR 61 > OR = 60 mL/min/1.7 3m2 [facility] BUN/CREATININE RATIO 20 6 - 22 (calc) [facility] SODIUM 138 135 - 146 mmol/L [facility] POTASSIUM 3.5 3.5 - 5.3 mmol/L [facility] CHLORIDE 101 98 - 110 mmol/L [facility] CARBON DIOXIDE 28 20 - 32 mmol/L [facility] ELECTROLYTE BALANCE 9 7 - 17 mmol/L (calc) [facility] CALCIUM 8.9 8.6 - 10.3 mg/dL [facility] Blood BLOOD SPECIMEN / Unknown 01/03/2025 7:31 AM TELETYPE TELEGRAPHER 01/03/2025 7:32 AM TELETYPE TELEGRAPHER us Jacob Sin MD CHEMISTRY Final Resu lt [facility] [address] [place] [address], [place] [phone] [facility] [address] [place] [address] * SCAN-DIAGNOSTIC REPORT (01/02/2025 12:00 AM TELETYPE TELEGRAPHER) us Scanner OTHER Final Result * HEMOGLOBIN A1C MONITORING (POCT) (01/02/2025) Pathologist [facility] HEMOGLOBIN A1C MONITORING (POCT) 5.7 <=6.4 % [facility] Blood BLOOD SPECIMEN / Unknown 01/02/2025 Non-Excellian Provider CHEMISTRY Final Res ult [facility] [address] [place] [address], * CT CHEST SCREENING LOW DOSE WO CONTRAST (11/07/2024 8:40 AM TELETYPE TELEGRAPHER) Anatomical Region Laterality Modality Computed Tomogra phy Impressions 11/08/2024 11:50 AM TELETYPE TELEGRAPHER No lung nodules or masses. Lung-RADS Category 1: Negative. Continue annual screening with low-dose chest CT in 12 months. Please note that all CT scans at this facility use dose modulation, iterative reconstruction and/or weight-based dosing when appropriate to reduce radiation dose to as low as reasonably achievable. Dictated by: Ari Rich MD @11/07/2024 10:49:37 AM/edwige Neuroradiologist Narrative 11/08/2024 11:50 AM TELETYPE TELEGRAPHER For Patients: As a result of the [...] lt * ANTI HCV (01/19/2012 10:22 AM TELETYPE TELEGRAPHER) ANTI HCV Non-reacti ve [facility] Blood specimen (specimen) BLOOD SPECIMEN / Unknown 01/19/2012 10:22 AM TELETYPE TELEGRAPHER 01/19/2012 10:12 AM TELETYPE TELEGRAPHER Elmer James MD SEND OUTS Final Resul t Performing Organization Address City/[facility] Co de Phone Number [facility] [place]NAL ZIP [phone] [place] [address] * ANTI HIV 1/2 (01/19/2012 10:22 AM TELETYPE TELEGRAPHER) ANTI HIV 1/2 Non-reacti ve [facility] Blood specimen (specimen) BLOOD SPECIMEN / Unknown 01/19/2012 10:22 AM TELETYPE TELEGRAPHER 01/19/2012 10:12 AM TELETYPE TELEGRAPHER Elmre James MD SEND OUTS Final Resul t Performing Organization Address [facility] Co de Phone Number [facility] INTERNAL ZIP [phone] [address] from Last 3 Months or Most Recently Relevant to Health Maintenance Insurance MEDICARE PART A HB ONLY MEDICARE PART B HB ONLY [facility] CARE [place] [address] MEDICARE PART A HB ONLY [facility] MR Advance Directives * Full Code (Latest Code Status on File) Date Activated Date Inactivated Comments 10/17/2019 4:54 PM 10/22/2019 2:48 PM * Full Code Date Activated Date Inactivated Comments 10/08/2019 11:23 AM 10/12/2019 4:36 PM * Full Code Date Activated Date Inactivated Comments 07/09/2014 8:34 AM 07/10/2014 11:59 AM Care Teams Binder Selector Relationship Specialty Start Date End Date Jacob Sin MD [address] [place] [address] PCP - General Family Practice 03/09/14
--- OUTSIDE RECORDS SUMMARY | 2025-03-26 13:46 | XMS_ITS | Continuity of Care Document ---
Author Organization [facility] enter Address [address] [place] [address] [address] Phone Care Team Providers Care Brass Reclaimer Name Role Phone [facility] Unavailable Unava ilable Procedures Procedure Date RF [...] Diagnoses Date Provider Providers Copied on Encounter [facility], [address] [place] [address], [id number], tel:[phone] [facility] No Information [facility]. [address] [place] [address], [id number], [place]. tel:[phone] Referring Provider: Gil Rinaldi, [address] [place], [address] . tel:[phone] [facility], [address] [place] [address], [id number], tel:[phone] [place] [address] No Information 5 [facility]. [address] [place] [address], [id number], [place]. tel:[phone] Referring Provider: Ian Arredondo, [address] [place], [place] [address], [address] . tel:[phone] [facility], [address] [place] [address], [id number], tel:[phone] [place] [address] No Information 3 [facility]. [address] [place] [address], [id number], [place]. tel:[phone] Referring Provider: Julita Fiore, [address] [place], [address] . tel:[phone] [facility], [address] [place] [address], [id number], [place] tel:[phone] [place] [address] No Information 2 [facility]. [address] [place] [address], [id number], [place]. tel:[phone] Referring Provider: Nicholas Varela, [address] [facility] [address], [place], [address]. tel:[phone] [facility], [address] [place] [address], [id number], [place] tel:[phone] [place] [address] No Information 2 [facility]. [address] [place] [address], [id number], [place]. tel:[phone] Referring Provider: Nicholas Varela [address], [place], [address]. tel:[phone] [facility], [address] [place] [address], [id number], tel:[phone] [facility] No Information 2 [facility]. [address] [place] [address], [id number], . tel:[phone] Referring Provider: Nicholas Varela [employer] [address] [facility] [address], [place], [address]. tel:[phone] [facility], [address] [place] [address], [id number], tel:[phone] [facility] No Information 2 [facility]. [address] [place] [address], [id number], . tel:[phone] Referring Provider: Nicholas Varela [employer] [address] [facility] [address], [place], [address]. tel:[phone] Family History Family Member Type Diagnosis Age At Onset No Information Payers Payer name Insurance type Covered democrat ID Authorcherria ticorina(s) AARP MedicareComplete Replacement [id number] [facility] [id number] Social History Type Description Quantity Date Captured [...]
--- OUTSIDE RECORDS SUMMARY | 2025-03-26 13:46 | XMS_ITS | CCD ---
Author Organization Unknown Care Team Providers Care Ultrasonic Cleaner Name Role Phone Cloud Engagement Partner, [place] Primary Care Provider Unava ilable Unavailable Chronic Care Management Unavaila ble Summary Purpose DataExchange Insurance Providers Payer name Policy type / Coverage type Covered republican ID Effective Begin Date Effective End Date [employer] Commercial Insurance [id number] Unknown Unkn own Family History Family History data not found Medication Administered No Medication Administered data Reason For Visit No Reason For Visit data
[2025-03-26 14:10] LABS: Creatinine, Point-of-Care* 1.1 mg/dl (0.6-1.3)
[2025-03-26 14:14] LABS: Basophils Absolute Auto 0.04 K/uL (0.00-0.30); Basophils Percent Auto 0.4 % (0.0-3.0); Eosinophils Absolute Auto 0.19 K/uL (0.00-0.50); Eosinophils Percent Auto 1.8 % (0.0-7.0); Hematocrit 44.6 % (37.0-53.0); Hemoglobin* 15.2 gm/dL (13.5-17.5); Immature Granulocytes Abs Auto 0.03 K/uL (0.00-0.30); Immature Granulocytes Pct Auto 0.3 %; Lymphocytes Absolute Auto 2.15 K/uL (0.90-2.90); Lymphocytes Percent Auto 20.4 % (20-44); Mean Corpuscular HGB Conc 34 gm/dL (32-36); Mean Corpuscular Hemoglobin 30 pg (26-34); Mean Corpuscular Volume 89 fL (80-100); Monocytes Percent Auto 5.4 % (0.0-11.0); Neutrophils Absolute Auto 7.57 K/uL (1.7-7.0); Neutrophils Percent Auto 71.7 % (42.0-72.0); Platelet Count* 158 K/uL (140-440); RDW Coefficient of Variation % 13.3 % (11.5-15.5); Red Blood Count 5.03 m/uL (4.30-5.90); White Blood Count* 10.55 K/uL (4.50-11.00)
[2025-03-26 14:29] LABS: Albumin* 4.6 g/dL (3.3-5.0); Chloride* 103 mmol/L (96-114); Potassium* 3.6 mmol/L (3.6-5.1); Slide Review Reflex No; Sodium* 143 mmol/L (135-149)
[2025-03-26 14:31] LABS: PCR FLU A Negative PCR FLU A (Negative); PCR FLU B Negative PCR FLU B (Negative); PCR RSV Negative PCR RSV (Negative); SARS PCR* Negative SARS-CoV-2 (Negative)
[2025-03-26 14:31] LABS: Blood Urea Nitrogen* 13 mg/dL (7-30); Est. Creatinine Clearance* 87.67; Estimated Glomerular Filt Rate 86 ml/min
[2025-03-26 14:32] LABS: Alanine Aminotransferase* 62 U/L (4-50); Alkaline Phosphatase* 81 U/L (40-150); Anion Gap 8 mEq/L (7-15); Aspartate Amino Transferase* 39 U/L (12-35); Bilirubin Total* 0.7 mg/dL (0.1-1.5); Calcium* 8.8 mg/dL (8.4-10.6); Carbon Dioxide* 32 mmol/L (20-32); Glucose* 119 mg/dL (60-115); Total Protein* 7.6 g/dL (6.0-8.3)
[2025-03-26 15:37] LABS: Fecal Occult Blood* Positive (Negative)
== END 2025-03-26 15:54 | disposition home or self-care (01) ==
PROVIDERS: Emergency Provider Student in an Organized Health Care Education/Training Program; PCP Family Medicine
DX: K92.2 Gastrointestinal hemorrhage, unspecified (principal); K59.00 Constipation, unspecified
CPT/HCPCS: 36415; 74174; 80053; 82270; 82565; 85025; 87631; 99284; Q9967